=== PATIENT | female | born 1955 | race Caucasian/White ===

== ENCOUNTER 2016-07-28 12:35 | Emergency (ER) | payer OTHER ==
[2016-07-28 12:46] VITALS: BP 122/53; PULSE 99; TEMP 98.5; BMI 24.4
--- NOTE | 2016-07-28 13:31 | PDOC ---
History of Present Illness - General Chief Complaint: Back Pain Stated Complaint: BACK PAIN, NOT CHEST PAIN (PCP SENT) Time Seen by Provider: 07/28/16 13:09 History Source: Patient Exam Limitations: No Limitations - History of Present Illness Initial Comments: 07/28/16 13:26 Patient is here with thoracic spasm and pain. had 2 episodes of bronchitis and 1 hospital admission for influenza with chronic coughing and pleuritic chest pain. cough subsided after 2 weeks but has persistent thoracic pain and worsens with movement. 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 Denies fever, denies residual cough, denies any chest pain or palpitations, denies neck pain. Has used Tylenol with minimal resolved. ALLERGY to aspirin and ibuprofen 07/28/16 13 :30 Occurred: reports: last week Severity: reports: mild, moderate Pain Location: reports: back, chest Modifying Factors: improves with: None Past History - Travel Traveled outside of the country in the last 30 days: No Close contact w/someone who was outside of country & ill: No - Past Medical History Allergies/Adverse Reactions: Allergies Allergy/AdvReac Type Severity Reaction Status Date / Time aspirin Allergy Difficulty Verified 07/28/16 12:46 Breathing ibuprofen Allergy Verified 07/28/16 13:31 Sulfa (Sulfonamide Allergy Difficulty Verified 07/28/16 13:05 Antibiotics) Breathing Home Medications: Ambulatory Orders Salmeterol/Fluticasone [Advair 500Mcg/50Mcg -] 1 inh PO BID 06/24/16 Montelukast Na [Singulair -] 10 mg PO HS tablet 06/26/16 Cyclobenzaprine HCl 7.5 mg PO Q8H PRN #14 tablet 07/28/16 Asthma: Yes - Psycho/Social/Smoking Cessation Hx Anxiety: No Suicidal Ideation: No Smoking History: Never smoked Have you smoked in the past 12 months: No Hx Alcohol Use: No Drug/Substance Use Hx: No Substance Use Type: None Review of Systems - Review of Systems Able to Perform ROS?: Yes Is the patient limited Peruvian proficient: Yes Constitutional: Yes: Symptoms Reported, See HPI, Malaise. No: Chills, Fever, Loss of Appetite HEENTM: Yes: See HPI. No: Symptoms Reported Respiratory: Yes: See HPI. No: Symptoms reported, Cough (resolved 2 weeks ago) Musculoskeletal: Yes: Symptoms Reported, See HPI, Muscle Pain, Muscle Weakness Integumentary: Yes: Symptoms Reported Neurological: Yes: See HPI. No: Symptoms reported All Other Systems: Reviewed and Negative *Physical Exam - Vital Signs Last Vital Signs Temp Pulse Resp BP Pulse Ox 98.5 F 99 H 20 122/53 94 L 07/28/16 12:44 07/28/16 12:44 07/28/16 12:44 07/28/16 12:44 07/28/16 12:44 - Physical Exam General Appearance: Yes: Nourished, Appropriately Dressed, Apparent Distress, Mild Distress HEENT: positive: ADIA, Normal ENT Inspection, Normal Voice, TMs Normal, Pharynx Normal Neck: positive: Tender, Supple Respiratory/Chest: positive: Lungs Clear, Normal Breath Sounds (mild pleuritic pain) Gastrointestinal/Abdominal: positive: Soft. negative: Tender Musculoskeletal: positive: Normal Inspection, Muscle Spasm (tension and spasm noted to the paravertebral spinous muscles worse at lower trapezius and upper lumbar/rhomboid muscles. Has no true spine tenderness, range of motion is intact but really exacerbates pain on the right side with flexion at waist). 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 Will treat with Tylenol and cyclobenzaprine. Patient has appointment with PMD on Thursday for follow-up and possible further treatment *DC/Admit/Observation/Transfer Diagnosis at time of Disposition: Pleuritic chest pain, Muscle spasm - Discharge Dispostion Disposition: HOME Condition at time of disposition: Stable Admit: No - Patient Instructions Printed Discharge Instructions: DI for Atypical Chest Pain Additional Instructions: Rest, no heavy lifting or exercise until pain is resolved Hot soaks to neck and low back as often as possible/hot showers or Jacuzzis No massage or therapy until spasm is gone Continue Tylenol 2-3 25 mg tablets every 4-6 hours -for the next 3 days then as needed for pain and swelling Cyclobenzaprine 1-10mg every 8 hours as needed for spasm If not significant improvement within 24 hours with medication and rest regime, followup with private physician for change in medications and /or therapy. - Post Discharge Activity Work/School Note: Back to Work
== END 2016-07-28 13:38 | disposition home or self-care (01) ==
LOC: JERFT 12:35
DX: R07.81 Pleurodynia (principal); R07.89 Other chest pain; M62.838 Other muscle spasm; J45.909 Unspecified asthma, uncomplicated
CPT/HCPCS: 99281-25

== ENCOUNTER 2016-09-04 00:04 | Emergency (ER) | payer OTHER ==
[2016-09-04 00:25] VITALS: BP 142/94; PULSE 79; TEMP 97.5; BMI 24.4
[2016-09-04] MEDS ORDERED: SODIUM CHLORIDE 1,000 ML IV STA (01:05)
[2016-09-04] MEDS ORDERED: ONDANSETRON 4 MG/2 ML VIAL IVPB ONE (01:05)
[2016-09-04] MEDS ORDERED: morphine CARPU-JECT 4 MG/1 ML DISP.SYRIN IVPUSH ONE ×2 (01:05→01:48)
[2016-09-04] MEDS ORDERED: morphine CARPU-JECT 4 MG/1 ML DISP.SYRIN ONE ×2 (01:14→02:08)
[2016-09-04] MEDS ORDERED: ONDANSETRON 4 MG/2 ML VIAL ONE (01:14)
--- NOTE | 2016-09-04 01:19 | PDOC ---
History of Present Illness - General Chief Complaint: Pain, Acute Stated Complaint: ABD PAIN Time Seen by Provider: 09/04/16 00:30 History Source: Patient, Family (Daughter) Exam Limitations: No Limitations - History of Present Illness Travel History: No Initial Comments: 09/04/16 01:15 60yo Female patient w/ PmHx: Asthma presents to ED c/o 3 week history of abd pain radiating to her back with vomiting. Patient states she was seen and evaluated at [facility] 4 days ago and diagnosed with stomach ulcer and prescribed Sucralfate 1 GM and Ranitidine 150mg. Patient states she is using medications in excess but they are not helping her symptoms. Patient reports last meal 6pm and last BM: today x 4 and soft. Denies any other complaints at this time. Timing/Duration: reports: constant, getting worse Quality: reports: severe Abdominal Pain Onset Location: reports: epigastric Pain Radiation: reports: back Activities at Onset: reports: rest, no specific activity, eating Treatment Prior to Arrive: improves with: antacids Aggravating Factors: worse with: None, Defecation, Eating, Emotional upset, Exertion, [place], Movement, Voiding, Change in position Alleviating Factors: worse with: None, Belching, Shallow Breathing, Defecation, Eating, Holding Breath, Passing Gas, Change in Position, Rest, Voiding, Vomiting Past History - Travel Traveled outside of the country in the last 30 days: No Close contact w/someone who was outside of country & ill: No - Past Medical History Allergies/Adverse Reactions: Allergies Allergy/AdvReac Type Severity Reaction Status Date / Time aspirin Allergy Difficulty Verified 09/04/16 00:17 Breathing ibuprofen Allergy Verified 09/04/16 00:17 Sulfa (Sulfonamide Allergy Difficulty Verified 09/04/16 00:17 Antibiotics) Breathing Home Medications: Ambulatory Orders Salmeterol/Fluticasone [Advair 500Mcg/50Mcg -] 1 inh PO BID 06/24/16 Montelukast Na [Singulair -] 10 mg PO HS tablet 06/26/16 Cyclobenzaprine HCl 7.5 mg PO Q8H PRN #14 tablet 07/28/16 Famotidine [Pepcid -] 40 mg PO BID #14 tablet 09/04/16 Ondansetron [Zofran Odt -] 4 mg SL Q6H PRN #30 od.tablet 09/04/16 Pantoprazole Sodium [Protonix -] 40 mg PO DAILY #30 tablet.ec 09/04/16 Ranitidine [Zantac -] 150 mg PO DAILY 09/04/16 Asthma: Yes - Psycho/Social/Smoking Cessation Hx Anxiety: No Suicidal Ideation: No Smoking History: Never smoked Have you smoked in the past 12 months: No Hx Alcohol Use: No Drug/Substance Use Hx: No Substance Use Type: None Abd/GI Specific PMHX - Complaint Specific PMHX Colitis: No Diverticulitis: No Gall Bladder Disease: No GERD: No Hepatitis: No Irritable Bowel Synd (IBS): No Pancreatitis: No GI Ulcer Disease: No Review of Systems - Review of Systems Able to Perform ROS?: Yes Is the patient limited Austrian proficient: No Constitutional: No: Chills, Fever Respiratory: No: Cough, Shortness of Breath, SOB at Rest, Stridor, Wheezing Cardiac (ROS): No: Chest Pain, Palpitations, Syncope, Chest Tightness ABD/GI: Yes: Nausea, Vomiting. No: Constipated, Diarrhea, Poor Appetite, Poor Fluid Intake, Other (Abdominal Pain) : No: Dysuria, Frequency, Hematuria, Urgency Musculoskeletal: Yes: Back Pain All Other Systems: Reviewed and Negative *Physical Exam - Vital Signs Last Vital Signs Temp Pulse Resp BP Pulse Ox 97.5 F L 79 18 142/94 98 09/04/16 00:18 09/04/16 00:18 09/04/16 00:18 09/04/16 00:18 09/04/16 00:18 - Physical Exam General Appearance: Yes: Nourished, Appropriately Dressed, Apparent Distress, Severe Distress. No: Mild Distress, Moderate Distress HEENT: positive: EOMI, ADIA, Normal ENT Inspection, Normal Voice, Symmetrical, TMs Normal, Pharynx Normal. negative: Scleral Icterus (R), Scleral Icterus (L) Neck: positive: Trachea midline, Supple. negative: Stridor, Lymphadenopathy (R) , Lymphadenopathy (L) Respiratory/Chest: positive: Lungs Clear, Normal Breath Sounds. negative: Chest Tender, Respiratory Distress, Accessory Muscle Use, Labored Respiration, Rapid RR Cardiovascular: positive: Regular Rhythm, Regular Rate. negative: Edema, JVD, Murmur Gastrointestinal/Abdominal: positive: Soft, Increased Bowel Sounds, Guarding, Tenderness (Epigastic. Neg Villa sign). negative: Normal Bowel Sounds, Distended, Rebound Musculoskeletal: positive: Normal Inspection. negative: CVA Tenderness Extremity: positive: Normal Capillary Refill, Normal Inspection, Normal Range of Motion. 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, Fully Oriented, Alert, Normal Mood/ Affect, Normal Response, Motor Strength 10/10 ED Treatment Course - LABORATORY CBC & Chemistry Diagram: 09/04/16 01:20 09/04/16 01:20 - RADIOLOGY Radiology Studies Ordered: Category Date Time Status GALLBLADDER US [US] Stat Ultrasound 09/04/16 01:04 Ordered *DC/Admit/Observation/Transfer Diagnosis at time of Disposition: Dyspepsia Nausea and vomiting Qualifiers: Vomiting type: bilious vomiting Qualified Code(s): R11.14 - Bilious vomiting - Discharge Dispostion Disposition: HOME Condition at time of disposition: Improved Admit: No - Prescriptions Prescriptions: Famotidine [Pepcid -] 40 mg PO BID #14 tablet Pantoprazole Sodium [Protonix -] 40 mg PO DAILY #30 tablet.ec Ondansetron [Zofran Odt -] 4 mg SL Q6H PRN #30 od.tablet PRN Reason: Nausea - Referrals Referrals: Shamar Zurita [Primary Care Provider] - Umer Cadena MD [Staff Physician] - - Patient Instructions Printed Discharge Instructions: DI for Dyspepsia Additional Instructions: FOLLOW UP WITH DR. CADENA (GASTROENTEROLOGY) REGARDING TODAYS VISIT. TAKE MEDICATIONS PRESCRIBED. DRINK PLENTY FLUIDS. RETURN IF SYMPTOMS WORSEN OR ANY CONCERNS FOR FURTHER EVALUATION. Print Language: DIVEHI
[2016-09-04 01:32] LABS: BASOPHIL 0.7 % (0-2.0); EOSINOPHIL 8.1 % (0-4.5); MCH 31.3 pg (25.7-33.7); MCHC 34.4 g/dl (32.0-36.0); MEAN CELL VOLUME 90.9 fl (80-96); MEAN PLT VOLUME 9.1 fl (7.5-11.1); NEUTROPHILS 41.1 % (42.8-82.8); PLATELET COUNT 293 K/MM3 (134-434); RDW 14.2 % (11.6-15.6); WHITE BLOOD COUNT 7.8 K/mm3 (4.0-10.0)
[2016-09-04 02:05] LABS: ALBUMIN 3.5 g/dl (3.4-5.0); AMYLASE 59 U/L (25-115); ANION GAP 13 (8-16); BILIRUBIN,TOTAL 0.3 mg/dL (0.2-1.0); CALCIUM 8.8 mg/dL (8.5-10.1); CO2 27 mmol/L (21-32); CREATININE 0.6 mg/dL (0.55-1.02); GLUCOSE,RANDOM 96 mg/dL (74-106); SGOT/AST 21 U/L (15-37); SGPT/ALT 17 U/L (12-78); TOT PROT 7.2 g/dl (6.4-8.2)
[2016-09-04 02:08] LABS: ALK PHOS 104 U/L (45-117); TROPONIN I < 0.02 ng/ml (0.00-0.05)
[2016-09-04 02:11] LABS: BILIRUBIN,DIRECT < 0.1 mg/dL (0.0-0.2)
[2016-09-04 02:29] LABS: URINE APPEARANCE CLEAR; URINE BILIRUBIN NEGATIVE (NEGATIVE); URINE BLOOD NEGATIVE (NEGATIVE); URINE COLOR COLORLESS; URINE GLUCOSE (UA) NEGATIVE (NEGATIVE); URINE KETONE NEGATIVE (NEGATIVE); URINE LEUK ESTERASE NEGATIVE (NEGATIVE); URINE NITRITE NEGATIVE (NEGATIVE); URINE PROTEIN NEGATIVE (NEGATIVE); URINE UROBILINOGEN NEGATIVE E.U./dl (0.2-1.0)
[2016-09-04] MEDS ORDERED: OXYCODONE/APAP 5/325MG COMBO TABLET PO ONE (03:18)
[2016-09-04] MEDS ORDERED: OXYCODONE/APAP 5/325MG COMBO TABLET ONE (03:21)
--- NOTE | 2016-09-04 12:20 | EKG ---
Test Reason : Blood Pressure : / mmHG Vent. Rate : 070 BPM Atrial Rate : 070 BPM P-R Int : 154 ms QRS Dur : 092 ms QT Int : 388 ms P-R-T Axes : 062 009 035 degrees QTc Int : 419 ms NORMAL SINUS RHYTHM CANNOT RULE OUT ANTERIOR INFARCT , AGE UNDETERMINED ABNORMAL ECG WHEN COMPARED WITH ECG OF 24-JUN-2016 11:17, ST NO LONGER DEPRESSED IN ANTERIOR LEADS T WAVE INVERSION NOW EVIDENT IN ANTERIOR LEADS Confirmed by YOHAN VALENTIN MD ([id number]) on 09/04/2016 12:20:43 PM Referred By: Confirmed By:YOHAN VALENTIN MD
== END 2016-09-04 03:22 | disposition home or self-care (01) ==
LOC: JER 00:04
PROC: 3E033NZ Introduction of Analgesics, Hypnotics, Sedatives into Peripheral Vein, Percutaneous Approach (ICD-10-PCS; principal; 2016-09-04)
PROC: 3E033GC Introduction of Other Therapeutic Substance into Peripheral Vein, Percutaneous Approach (ICD-10-PCS; 2016-09-04)
DX: R10.13 Epigastric pain (principal); R11.14 Bilious vomiting; J45.909 Unspecified asthma, uncomplicated
CPT/HCPCS: 36415; 76705-TC; 80048; 80076; 81003; 82150; 82550; 83690; 84484; 85025; 93005; 93010; 99282-25

== ENCOUNTER 2016-09-05 01:00 | Observation (INO) | payer OTHER ==
--- NOTE | 2016-09-05 01:37 | PDOC ---
History of Present Illness - General History Source: Patient Exam Limitations: No Limitations - History of Present Illness Initial Comments: 09/05/16 02:11 The patient is a 60 year old female with significant past medical history of asthma who presents to the ED persistent abdominal pain radiating to the back with vomiting. Patient states she was seen and evaluated at [facility] 5 days ago, where she was diagnosed with stomach ulcer and prescribed Sucralfate 1 GM and Ranitidine 150mg. Patient was seen here yesterday for similar complaint, where she had an extensive workup including a gallbladder ultrasound that revealed no peptic ulcers or any other acute pathology. She was seen again in [facility] again earlier today for similar complaints. She returns today for persistent pain. Denies diarrhea. The patient denies fever, chills, cough, SOB, chest pain, and palpitations. Allergies: aspirin, ibuprofen, sulfa Social History: No alcohol, tobacco, or drug use reported. Past Surgical History: None reported PCP: Dr. Shamar Zurita <Norma Ramos - Last Filed: 09/05/16 06:55> - General History Source: Patient <Robinson Cortez - Last Filed: 09/08/16 19:15> - General Chief Complaint: Pain Stated Complaint: ABD PAIN Time Seen by Provider: 09/05/16 01:34 Past History <Norma Ramos - Last Filed: 09/05/16 06:55> - Past Medical History Asthma: Yes - Immunization History Immunization Up to Date: No - Psycho/Social/Smoking Cessation Hx Anxiety: No Suicidal Ideation: No Smoking History: Never smoked Have you smoked in the past 12 months: No Information on smoking cessation initiated: No Hx Alcohol Use: No Drug/Substance Use Hx: No Substance Use Type: None <Robinson Cortez - Last Filed: 09/08/16 19:15> - Past Medical History Allergies/Adverse Reactions: Allergies Allergy/AdvReac Type Severity Reaction Status Date / Time aspirin Allergy Difficulty Verified 09/05/16 01:31 Breathing ibuprofen Allergy Verified 09/05/16 01:31 Sulfa (Sulfonamide Allergy Difficulty Verified 09/05/16 01:31 Antibiotics) Breathing Home Medications: Ambulatory Orders Salmeterol/Fluticasone [Advair 500Mcg/50Mcg -] 1 inh PO BID 06/24/16 Montelukast Na [Singulair -] 10 mg PO HS tablet 06/26/16 Cyclobenzaprine HCl 7.5 mg PO Q8H PRN #14 tablet 07/28/16 Famotidine [Pepcid -] 40 mg PO BID #14 tablet 09/04/16 Ondansetron [Zofran Odt -] 4 mg SL Q6H PRN #30 od.tablet 09/04/16 Oxycodone HCl/Acetaminophen [Endocet 7.5-325 mg Tablet] 1 each PO Q6H PRN #20 tablet MDD 4 tabs 09/04/16 Pantoprazole Sodium [Protonix -] 40 mg PO DAILY #30 tablet.ec 09/04/16 Review of Systems - Review of Systems Able to Perform ROS?: Yes Comments:: 09/05/16 02:11 CONSTITUTIONAL: Absent: fever, no chills, no fatigue EYES: Absent: visual changes ENT: Absent: ear pain, no sore throat CARDIOVASCULAR: Absent: chest pain, no palpitations RESPIRATORY: Absent: cough, no SOB GI: +abdominal pain radiating to the back, vomiting Absent: no constipation, no diarrhea GENITOURINARY: Absent: dysuria, no frequency, no hematuria MUSCULOSKELETAL: Absent: no arthralgia, no myalgia SKIN: Absent: rash NEURO: Absent: headache <Norma Ramos - Last Filed: 09/05/16 06:55> *Physical Exam - Vital Signs Last Vital Signs Temp Pulse Resp BP Pulse Ox 98.7 F 75 18 106/51 100 09/05/16 01:28 09/05/16 01:28 09/05/16 01:28 09/05/16 01:28 09/05/16 01:28 - Physical Exam Comments: 09/05/16 02:11 GENERAL: Well-appearing, well-nourished. No apparent distress. HEENT: Normocephalic, atraumatic. PERRL, EOM intact. CARDIOVASCULAR: Normal S1, S2. Regular rate and rhythm. PULMONARY: Clear to auscultation bilaterally. ABDOMEN: Soft, non-distended, diffuse abdominal tenderness. Negative rebound or guarding. EXTREMITIES: Normal ROM in all four extremities. No gross deformities. SKIN: Warm, dry. No rash NEUROLOGICAL: No focal neurological deficits. <Norma Ramos - Last Filed: 09/05/16 06:55> - Vital Signs Last Vital Signs Temp Pulse Resp BP Pulse Ox 98.7 F 75 18 106/51 100 09/05/16 01:28 09/05/16 01:28 09/05/16 01:28 09/05/16 01:28 09/05/16 01:28 <Robinson Cortez - Last Filed: 09/08/16 19:15> Heart Score/ECG Review - ECG Impressions Comment:: 09/05/16 06:55 NSR @61bpm Nonspecific T wave abnormality Abnormal ECG <Norma Ramos - Last Filed: 09/05/16 06:55> ED Treatment Course - LABORATORY CBC & Chemistry Diagram: 09/05/16 02:06 09/05/16 02:06 - Medications Given in the ED: ED Medications Discontinued Medications Generic Name Dose Route Start Last Admin Trade Name Freq PRN Reason Stop Dose Admin Morphine Sulfate 4 mg 09/05/16 01:51 09/05/16 02:04 Morphine Injection - IVPUSH 09/05/16 01:52 4 mg ONCE ONE Administration Ondansetron HCl 4 mg 09/05/16 01:51 09/05/16 02:05 Zofran Injection IVPUSH 09/05/16 01:52 4 mg ONCE STA Administration <Norma Ramos - Last Filed: 09/05/16 06:55> - LABORATORY CBC & Chemistry Diagram: 09/06/16 06:30 09/06/16 06:30 <Robinson Cortez - Last Filed: 09/08/16 19:15> Medical Decision Making - Medical Decision Making 09/05/16 05:46- Dr. Gutiérrez paged via phone answering service. Notified Dr. Garcia is occupational rehabilitation aide and will be returning the call. <Norma Ramos - Last Filed: 09/05/16 06:55> - Medical Decision Making 09/08/16 19:15 Dr. Cortez: The scribe's documentation has been prepared under my direction and personally reviewed by me in its entirery. I confirm that the note above accurately reflects all work, treatment, procedures, and medical decision making performed by me. <Robinson Cortez - Last Filed: 09/08/16 19:15> *DC/Admit/Observation/Transfer - Attestations Scribe Attestion: 09/05/16 02:11 Documentation prepared by Norma Ramos, acting as emergency medical dispatcher for Robinson Cortez MD <Norma Ramos - Last Filed: 09/05/16 06:55> - Discharge Dispostion Admit: Yes <Robinson Cortez - Last Filed: 09/08/16 19:15> Diagnosis at time of Disposition: Nausea & vomiting - Discharge Dispostion Disposition: HOME Condition at time of disposition: Fair - Referrals
[2016-09-05] MEDS ORDERED: morphine CARPU-JECT 2 MG/1 ML DISP.SYRIN IVPUSH ONE (01:51)
[2016-09-05] MEDS ORDERED: SODIUM CHLORIDE 1,000 ML IV STA (01:51)
[2016-09-05] MEDS ORDERED: ONDANSETRON 4 MG/2 ML VIAL IVPUSH STA (01:51)
[2016-09-05] MEDS ORDERED: ONDANSETRON 4 MG/2 ML VIAL ONE (01:57)
[2016-09-05] MEDS ORDERED: morphine CARPU-JECT 4 MG/1 ML DISP.SYRIN ONE (01:57)
[2016-09-05 02:14] LABS: BASOPHIL 1.1 % (0-2.0); EOSINOPHIL 5.9 % (0-4.5); MCHC 33.8 g/dl (32.0-36.0); MEAN CELL VOLUME 91.8 fl (80-96); MEAN PLT VOLUME 8.8 fl (7.5-11.1); NEUTROPHILS 54.6 % (42.8-82.8); PLATELET COUNT 302 K/MM3 (134-434); WHITE BLOOD COUNT 8.9 K/mm3 (4.0-10.0)
[2016-09-05 02:45] LABS: ALBUMIN 3.6 g/dl (3.4-5.0); ALK PHOS 107 U/L (45-117); AMYLASE 68 U/L (25-115); ANION GAP 10 (8-16); BILIRUBIN,TOTAL 0.3 mg/dL (0.2-1.0); CALCIUM 8.9 mg/dL (8.5-10.1); CO2 25 mmol/L (21-32); CREATININE 0.7 mg/dL (0.55-1.02); GLUCOSE,RANDOM 91 mg/dL (74-106); MAGNESIUM 2.3 mg/dL (1.8-2.4); SGOT/AST 29 U/L (15-37); SGPT/ALT 16 U/L (12-78); TOT PROT 7.5 g/dl (6.4-8.2)
[2016-09-05] MEDS ORDERED: HYDROmorphone HCL CARPU-JECT 1 MG/1 ML DISP.SYRIN IVPUSH ONE (02:49)
[2016-09-05] MEDS ORDERED: HYDROmorphone HCL CARPU-JECT 1 MG/1 ML DISP.SYRIN ONE (02:51)
[2016-09-05] MEDS ORDERED: SUCRALFATE 1 GM TABLET (FP) PO STA (02:54)
[2016-09-05] MEDS ORDERED: SUCRALFATE 1 GM TABLET (FP) ONE (03:13)
[2016-09-05] MEDS ORDERED: DOCUSATE SODIUM 100 MG CAPSULE (FP) PO PRN (06:45)
[2016-09-05] MEDS ORDERED: ONDANSETRON 4 MG/2 ML VIAL IVPB PRN (06:45)
[2016-09-05] MEDS ORDERED: ALBUTEROL SO4 0.083% IH SOL 2.5 MG/3 ML VIAL.NEB. NEB PRN (06:46)
--- NOTE | 2016-09-05 09:45 | HP ---
Admitting History and Physical - Primary Care Physician PCP: Koby Gutiérrez - Admission Chief Complaint: ABD PAIN History of Present Illness: The patient is a 60 year old female with significant past medical history of asthma who presents to the ED persistent abdominal pain radiating to the back with vomiting. Patient states she was seen and evaluated at [facility] 5 days ago, where she was diagnosed with stomach ulcer and prescribed Sucralfate 1 GM and Ranitidine 150mg. Patient was seen here yesterday for similar complaint, where she had an extensive workup including a gallbladder ultrasound that revealed no peptic ulcers or any other acute pathology. She was seen again in [facility] again earlier today for similar complaints. She returns today for persistent pain. Denies diarrhea. The patient denies fever, chills, cough, SOB, chest pain, and palpitations. History Source: Patient Limitations to Obtaining History: No Limitations - Past Medical History Pulmonary: Yes: Asthma - Smoking History Smoking history: Never smoked Have you smoked in the past 12 months: No - Alcohol/Substance Use Hx Alcohol Use: No Home Medications - Allergies Allergies/Adverse Reactions: Allergies Allergy/AdvReac Type Severity Reaction Status Date / Time aspirin Allergy Difficulty Verified 09/05/16 01:31 Breathing ibuprofen Allergy Verified 09/05/16 01:31 Sulfa (Sulfonamide Allergy Difficulty Verified 09/05/16 01:31 Antibiotics) Breathing - Home Medications Home Medications: Ambulatory Orders Salmeterol/Fluticasone [Advair 500Mcg/50Mcg -] 1 inh PO BID 06/24/16 Montelukast Na [Singulair -] 10 mg PO HS tablet 06/26/16 Cyclobenzaprine HCl 7.5 mg PO Q8H PRN #14 tablet 07/28/16 Famotidine [Pepcid -] 40 mg PO BID #14 tablet 09/04/16 Ondansetron [Zofran Odt -] 4 mg SL Q6H PRN #30 od.tablet 09/04/16 Oxycodone HCl/Acetaminophen [Endocet 7.5-325 mg Tablet] 1 each PO Q6H PRN #20 tablet MDD 4 tabs 09/04/16 Pantoprazole Sodium [Protonix -] 40 mg PO DAILY #30 tablet.ec 09/04/16 Ranitidine [Zantac -] 150 mg PO DAILY 09/04/16 Review of Systems - Review of Systems Constitutional: reports: Loss of Appetite Eyes: reports: No Symptoms HENT: reports: No Symptoms Neck: reports: No Symptoms Cardiovascular: reports: No Symptoms Respiratory: reports: No Symptoms Gastrointestinal: reports: Abdominal Pain, Nausea Genitourinary: reports: No Symptoms Musculoskeletal: reports: No Symptoms Integumentary: reports: No Symptoms Neurological: reports: No Symptoms Endocrine: reports: No Symptoms Hematology/Lymphatic: reports: No Symptoms Psychiatric: reports: No Symptoms Physical Examination Vital Signs: Vital Signs Temperature 97.8 F 09/05/16 08:16 Pulse Rate 80 09/05/16 08:16 Respiratory Rate 18 09/05/16 08:16 Blood Pressure 115/59 09/05/16 08:16 O2 Sat by Pulse Oximetry (%) 98 09/05/16 06:48 Constitutional: Yes: Mild Distress Eyes: Yes: WNL HENT: Yes: WNL Neck: Yes: WNL Cardiovascular: Yes: WNL Respiratory: Yes: WNL Gastrointestinal: Yes: Tenderness Renal/: Yes: WNL Musculoskeletal: Yes: WNL Extremities: Yes: WNL Edema: No Peripheral Pulses WNL: Yes Integumentary: Yes: WNL Wound/Incision: Yes: Clean/Dry Neurological: Yes: WNL ...Motor Strength: WNL Psychiatric: Yes: WNL Imaging - Results Cat Scan: Report Reviewed Problem List - Problems (1) Nausea & vomiting Code(s): R11.2 - NAUSEA WITH VOMITING, UNSPECIFIED (2) Dyspepsia Code(s): R10.13 - EPIGASTRIC PAIN (3) Abdominal pain in female Code(s): R10.9 - UNSPECIFIED ABDOMINAL PAIN Assessment/Plan CT SCAN REVIEWED NPO IVF ANTIEMITICS GI EVAL
--- NOTE | 2016-09-05 10:44 | CONSULT ---
[id number] Surgery) CONSULT REQUEST: We have been asked to surgically evaluate this patient for abd pain. PCP: Koby Gutiérrez History Source: Patient Limitations to Obtaining History: No Limitations C/C: ABD PAIN HPI: Called to cha 60 yo female with PMHx noted below. Presents to [facility] ED with abd pain radiating to the back with n/v x1. States shes had this pain intermittently for the past 3 weeks. Was recently seen at [facility] ER with same complaint 5 days ago. They diagnosed her with gastric ulcer and prescribed her Sulcrafate and Ranitidine. She also had an extensive workup including a gallbladder ultrasound that revealed no peptic ulcers or any other acute pathology. Passing flatus. Her last bowel movement (semi-solid) was yesterday. Since admit to hospital, patient states she is feeling better. Pain initially 8/ 10. Now, 4. Denies diarrhea, fever or chills. Denies hematemisis, cough, CP, SOB or trauma. CT scan in the ER which identified a 2.2 cm left paraumbilical fat-containing hernia with mild inflammatory changes. Rest of study unremarkable. PMHx: Asthma PSHx: Allergies: ASA --> difficulty breathing Ibuprofen --> unknown Sulfa --> difficulty breathing HOME MEDS: Salmeterol/Fluticasone [Advair 500Mcg/50Mcg -] 1 inh PO BID 06/24/16 Montelukast Na [Singulair -] 10 mg PO HS tablet 06/26/16 Cyclobenzaprine HCl 7.5 mg PO Q8H PRN #14 tablet 07/28/16 Famotidine [Pepcid -] 40 mg PO BID #14 tablet 09/04/16 Ondansetron [Zofran Odt -] 4 mg SL Q6H PRN #30 od.tablet 09/04/16 Oxycodone HCl/Acetaminophen [Endocet 7.5-325 mg Tablet] 1 each PO Q6H PRN #20 tablet MDD 4 tabs 09/04/16 Pantoprazole Sodium [Protonix -] 40 mg PO DAILY #30 tablet.ec 09/04/16 Ranitidine [Zantac -] 150 mg PO DAILY 09/04/16 ROS: CONSTITUTIONAL: Absent: fever, chills, diaphoresis, generalized weakness, malaise, loss of appetite, weight change CARDIOVASCULAR: Absent: syncope, palpitations, irregular heart rate, lightheadedness, peripheral edema RESPIRATORY: Absent: dyspnea with exertion, wheezing, stridor, hemoptysis GASTROINTESTINAL:Absent: See above. GENITOURINARY: Absent: dysuria, frequency, urgency, hesitancy, flank pain MUSCULOSKELETAL: Absent: myalgia, arthralgia, joint swelling, back pain, neck pain SKIN: Absent: rash, itching, pallor HEMATOLOGIC/IMMUNOLOGIC: Absent: easy bleeding, easy bruising, lymphadenopathy NEUROLOGIC: Absent: headache, focal weakness, paresthesias, dizziness, unsteady gait, seizure, mental status changes, PSYCHIATRIC: Absent: anxiety, depression, suicidal or homicidal ideation, hallucinations. PE: GENERAL: Awake, alert, and fully oriented, in no acute distress. HEAD: Normal with no signs of trauma. EYES: PERRL, sclera anicteric, conjunctiva clear. NECK: Normal ROM, supple without lymphadenopathy, JVD, or masses. PULM: CTA b/l anteriorly COR: RRR ABD: Soft, mild epigastric tenderness. not distended. Reducible left periumbilcal hernia. + bowel sounds. no guarding/rigidity UE: 2+ pulses, warm, well-perfused. No cyanosis. Cap refill <2 seconds. No peripheral edema. LE: 2+ pulses, warm, well-perfused. No calf tenderness. No peripheral edema. PSYCH: Cooperative. Good eye contact. Appropriate mood and affect. SKIN: Warm, dry, normal turgor, no rashes or lesions noted. Vital Signs Temperature 97.8 F 09/05/16 08:16 Pulse Rate 80 09/05/16 08:16 Respiratory Rate 18 09/05/16 08:16 Blood Pressure 115/59 09/05/16 08:16 O2 Sat by Pulse Oximetry (%) 98 09/05/16 06:48 Lab Results WBC 8.9 K/mm3 (4.0-10.0) 09/05/16 02:06 RBC 4.17 M/mm3 (3.60-5.2) 09/05/16 02:06 Hgb 12.9 GM/dL (10.7-15.3) 09/05/16 02:06 Hct 38.3 % (32.4-45.2) 09/05/16 02:06 MCV 91.8 fl (80-96) 09/05/16 02:06 MCHC 33.8 g/dl (32.0-36.0) 09/05/16 02:06 RDW 14.0 % (11.6-15.6) 09/05/16 02:06 Plt Count 302 K/MM3 (134-434) 09/05/16 02:06 Sodium 140 mmol/L (136-145) 09/05/16 02:06 Potassium 4.0 mmol/L (3.5-5.1) 09/05/16 02:06 Chloride 105 mmol/L (98-107) 09/05/16 02:06 Carbon Dioxide 25 mmol/L (21-32) 09/05/16 02:06 Anion Gap 10 (8-16) 09/05/16 02:06 BUN 8 mg/dL (7-18) D 09/05/16 02:06 Creatinine 0.7 mg/dL (0.55-1.02) 09/05/16 02:06 Random Glucose 91 mg/dL (74-106) 09/05/16 02:06 Calcium 8.9 mg/dL (8.5-10.1) 09/05/16 02:06 Problem List - Problems (1) Umbilical hernia Assessment/Plan: 60 yo female with recent diagnosis of gastric ulcer presents with abd pain to our ER. CT scan confirmed a left periumbilical hernia containing fat only. Cont conservative management Periumbilical hernia is reducible. Can repair as elective out-patient f/u with Dr. Guerrier to begin process of pre-op work-up No surgical intervention Above plan discussed with Dr. Guerrier and agrees Code(s): K42.9 - UMBILICAL HERNIA WITHOUT OBSTRUCTION OR GANGRENE Qualifiers: Obstruction and gangrene presence: without obstruction or gangrene Qualified Code(s): K42.9 - Umbilical hernia without obstruction or gangrene (2) Gastric ulcer Assessment/Plan: Medical management GI PPX Advance diet as tolerated Code(s): K25.9 - GASTRIC ULCER, UNSP ACUTE OR CHRONIC, W/O HEMOR OR PERF Visit type - Case Type Case Type: ED Admission - Emergency Emergency Visit: Yes ED Registration Date: 09/05/16 Care time: The patient presented to the Emergency Department on the above date and was hospitalized for further evaluation of their emergent condition. - New patient This patient is new to me today: Yes Date on this admission: 09/05/16 <Israel Guerrier - Last Filed: 09/05/16 18:01> - Consultation REQUESTING PROVIDER: CONSULT REQUEST: We have been asked to surgically evaluate this patient for ( specify). PCP:Koby Gutiérrez HISTORY OF PRESENT ILLNESS: PMHx: PSHx: Home Medications Medication Instructions Recorded Salmeterol/Fluticasone [Advair 1 inh PO BID 06/24/16 500Mcg/50Mcg -] Montelukast Na [Singulair -] 10 mg PO HS tablet 06/26/16 Cyclobenzaprine HCl 7.5 mg PO Q8H PRN #14 tablet 07/28/16 Famotidine [Pepcid -] 40 mg PO BID #14 tablet 09/04/16 Ondansetron [Zofran Odt -] 4 mg SL Q6H PRN #30 od.tablet 09/04/16 Oxycodone HCl/Acetaminophen 1 each PO Q6H PRN #20 tablet MDD 4 09/04/16 [Endocet 7.5-325 mg Tablet] tabs Pantoprazole Sodium [Protonix -] 40 mg PO DAILY #30 tablet.ec 09/04/16 Ranitidine [Zantac -] 150 mg PO DAILY 09/04/16 Allergies Allergy/AdvReac Type Severity Reaction Status Date / Time aspirin Allergy Difficulty Verified 09/05/16 01:31 Breathing ibuprofen Allergy Verified 09/05/16 01:31 Sulfa (Sulfonamide Allergy Difficulty Verified 09/05/16 01:31 Antibiotics) Breathing REVIEW OF SYSTEMS: CONSTITUTIONAL: Absent: fever, chills, diaphoresis, generalized weakness, malaise, loss of appetite, weight change CARDIOVASCULAR: Absent: chest pain, syncope, palpitations, irregular heart rate, lightheadedness , peripheral edema RESPIRATORY: Absent: cough, shortness of breath, dyspnea with exertion, wheezing, stridor, hemoptysis GASTROINTESTINAL: Absent: abdominal pain, abdominal distension, nausea, vomiting, diarrhea, constipation, melena, hematochezia GENITOURINARY: Absent: dysuria, frequency, urgency, hesitancy, hematuria, flank pain, genital pain MUSCULOSKELETAL: Absent: myalgia, arthralgia, joint swelling, back pain, neck pain SKIN: Absent: rash, itching, pallor HEMATOLOGIC/IMMUNOLOGIC: Absent: easy bleeding, easy bruising, lymphadenopathy NEUROLOGIC: Absent: headache, focal weakness, paresthesias, dizziness, unsteady gait, seizure, mental status changes, bladder or bowel incontinence PSYCHIATRIC: Absent: anxiety, depression, suicidal or homicidal ideation, hallucinations. PHYSICAL EXAM: GENERAL: Awake, alert, and fully oriented, in no acute distress. HEAD: Normal with no signs of trauma. EYES: PERRL, sclera anicteric, conjunctiva clear. NECK: Normal ROM, supple without lymphadenopathy, JVD, or masses. LUNGS: Clear to auscultation bilat anteriorly. No wheezes, and no crackles. No accessory muscle use. HEART: Regular rate and rhythm. No murmurs ABDOMEN: Soft, nontender, not distended, normoactive bowel sounds, no guarding, no rebound, no masses. No organomegaly. MUSCULOSKELETAL: Normal ROM at all joints. No bony deformities or tenderness. No CVA tenderness. UPPER EXTREMITIES: 2+ pulses, warm, well-perfused. No cyanosis. Cap refill <2 seconds. No peripheral edema. LOWER EXTREMITIES: 2+ pulses, warm, well-perfused. No calf tenderness. No peripheral edema. NEUROLOGICAL: Normal speech, gait not observed. PSYCH: Cooperative. Good eye contact. Appropriate mood and affect. SKIN: Warm, dry, normal turgor, no rashes or lesions noted. Vital Signs Temperature 97.8 F 09/05/16 13:49 Pulse Rate 62 09/05/16 13:49 Respiratory Rate 17 09/05/16 13:49 Blood Pressure 110/57 09/05/16 10:00 O2 Sat by Pulse Oximetry (%) 97 09/05/16 14:43 Lab Results WBC 8.9 K/mm3 (4.0-10.0) 09/05/16 02:06 RBC 4.17 M/mm3 (3.60-5.2) 09/05/16 02:06 Hgb 12.9 GM/dL (10.7-15.3) 09/05/16 02:06 Hct 38.3 % (32.4-45.2) 09/05/16 02:06 MCV 91.8 fl (80-96) 09/05/16 02:06 MCHC 33.8 g/dl (32.0-36.0) 09/05/16 02:06 RDW 14.0 % (11.6-15.6) 09/05/16 02:06 Plt Count 302 K/MM3 (134-434) 09/05/16 02:06 Sodium 140 mmol/L (136-145) 09/05/16 02:06 Potassium 4.0 mmol/L (3.5-5.1) 09/05/16 02:06 Chloride 105 mmol/L (98-107) 09/05/16 02:06 Carbon Dioxide 25 mmol/L (21-32) 09/05/16 02:06 Anion Gap 10 (8-16) 09/05/16 02:06 BUN 8 mg/dL (7-18) D 09/05/16 02:06 Creatinine 0.7 mg/dL (0.55-1.02) 09/05/16 02:06 Random Glucose 91 mg/dL (74-106) 09/05/16 02:06 Calcium 8.9 mg/dL (8.5-10.1) 09/05/16 02:06 Agree Reducible louis-umbilical hernia No signs of obstruction Abd NT, ND, benign, reducible hernia Labs WNL Soft diet Discharge home Follow up for elective repair
[2016-09-05] MEDS: PANTOPRAZOLE SODIUM 100 ML IVPB SCH (11:07)
--- NOTE | 2016-09-05 11:32 | EKG ---
Test Reason : Blood Pressure : / mmHG Vent. Rate : 061 BPM Atrial Rate : 061 BPM P-R Int : 154 ms QRS Dur : 090 ms QT Int : 422 ms P-R-T Axes : 050 001 015 degrees QTc Int : 424 ms NORMAL SINUS RHYTHM NONSPECIFIC T WAVE ABNORMALITY ABNORMAL ECG WHEN COMPARED WITH ECG OF 04-SEP-2016 02:00, NONSPECIFIC T WAVE ABNORMALITY HAS REPLACED INVERTED T WAVES IN ANTERIOR LEADS Confirmed by LISSA QUIJANO, VALERIE ([id number]) on 09/05/2016 11:32:13 AM Referred By: Confirmed By:VALERIE ALCARAZ MD
[2016-09-05] MEDS: morphine CARPU-JECT 2 MG/1 ML DISP.SYRIN IVPUSH PRN (12:46)
[2016-09-05] MEDS ORDERED: HYDROmorphone HCL CARPU-JECT 1 MG/1 ML DISP.SYRIN IVPB PRN (13:32)
[2016-09-05] MEDS: BUDESONIDE/FORMETEROL FUMARATE 160/4.5 mcg INHALER IH SCH ×2 (14:07→21:16)
[2016-09-05] MEDS ORDERED: PT OWN MED DRAWER 7, Y5N ONE ×2 (14:11→20:44)
[2016-09-05 16:14] VITALS: BMI 25.2
[2016-09-05] MEDS ORDERED: MONTELUKAST NA 10 MG TABLET PO SCH (22:00)
[2016-09-06] MEDS: morphine CARPU-JECT 2 MG/1 ML DISP.SYRIN IVPUSH PRN (01:13)
[2016-09-06 06:01] VITALS: PULSE 70
[2016-09-06] MEDS ORDERED: PT OWN MED DRAWER 7, Y5N ONE (06:53)
[2016-09-06 08:22] LABS: BASOPHIL 0.5 % (0-2.0); EOSINOPHIL 6.8 % (0-4.5); MCH 30.8 pg (25.7-33.7); MCHC 33.6 g/dl (32.0-36.0); MEAN CELL VOLUME 91.6 fl (80-96); MEAN PLT VOLUME 10.1 fl (7.5-11.1); NEUTROPHILS 47.5 % (42.8-82.8); PLATELET COUNT 257 K/MM3 (134-434); WHITE BLOOD COUNT 5.9 K/mm3 (4.0-10.0)
[2016-09-06 08:58] LABS: ALBUMIN 3.2 g/dl (3.4-5.0); ANION GAP 9 (8-16); BILIRUBIN,TOTAL 0.4 mg/dL (0.2-1.0); CALCIUM 8.8 mg/dL (8.5-10.1); CO2 29 mmol/L (21-32); CREATININE 0.7 mg/dL (0.55-1.02); GLUCOSE,RANDOM 73 mg/dL (74-106); SGOT/AST 23 U/L (15-37); TOT PROT 6.7 g/dl (6.4-8.2)
[2016-09-06 09:00] VITALS: BP 110/70; TEMP 97.5
[2016-09-06 09:23] LABS: ALK PHOS 96 U/L (45-117); SGPT/ALT 16 U/L (12-78)
[2016-09-06] MEDS: PANTOPRAZOLE SODIUM 100 ML IVPB SCH (10:05)
[2016-09-06] MEDS: BUDESONIDE/FORMETEROL FUMARATE 160/4.5 mcg INHALER IH SCH (10:05)
--- NOTE | 2016-09-06 10:53 | DS ---
Physical Examination Vital Signs: Vital Signs Temperature 97.5 F L 09/06/16 08:58 Pulse Rate 70 09/06/16 08:58 Respiratory Rate 18 09/06/16 08:58 Blood Pressure 110/70 09/06/16 08:58 O2 Sat by Pulse Oximetry (%) 97 09/06/16 08:58 Labs: CBC, BMP 09/06/16 06:30 09/06/16 06:30 Discharge Summary Reason For Visit: NAUSEA AND VOMITING Current Active Problems Abdominal pain in female (Acute) Gastric ulcer (Acute) Nausea & vomiting (Acute) Umbilical hernia (Acute) Hospital Course: The patient is a 60 year old female with significant past medical history of asthma who presents to the ED persistent abdominal pain radiating to the back with vomiting. Patient states she was seen and evaluated at [facility] 5 days ago, where she was diagnosed with stomach ulcer and prescribed Sucralfate 1 GM and Ranitidine 150mg. Patient was seen here yesterday for similar complaint, where she had an extensive workup including a gallbladder ultrasound that revealed no peptic ulcers or any other acute pathology. She was seen again in [facility] again earlier today for similar complaints. She returns today for persistent pain. Denies diarrhea. (1) Umbilical hernia Assessment/Plan: FINDINGS D/W PT AND SHE WILL F/U WITH HER PMD, GI AND SURGERY OUTPATIENT I STRESSED IMPORTANCE OF ENDOSCOPY AND SURGICAL F/U SURGERY 60 yo female with recent diagnosis of gastric ulcer presents with abd pain to our ER. CT scan confirmed a left periumbilical hernia containing fat only. Cont conservative management Periumbilical hernia is reducible. Can repair as elective out-patient f/u with Dr. Guerrier to begin process of pre-op work-up No surgical intervention Above plan discussed with Dr. Guerrier and agrees Code(s): K42.9 - UMBILICAL HERNIA WITHOUT OBSTRUCTION OR GANGRENE Qualifiers: Obstruction and gangrene presence: without obstruction or gangrene Qualified Code(s): K42.9 - Umbilical hernia without obstruction or gangrene (2) Gastric ulcer Assessment/Plan: Medical management GI PPX Advance diet as tolerated Code(s): K25.9 - GASTRIC ULCER, UNSP ACUTE OR CHRONIC, W/O HEMOR OR PERF Condition: Fair - Instructions Diet, Activity, Other Instructions: make appointment with Dr katy Guerrier for surgery for hernia Dr Cadena for endoscopy Referrals: Katy Guerrier MD [Staff Physician] - Shamar Zurita [Primary Care Provider] - 1 Week Umer Cadena MD [Staff Physician] - Disposition: HOME - Home Medications Comprehensive Discharge Medication List: Ambulatory Orders Salmeterol/Fluticasone [Advair 500Mcg/50Mcg -] 1 inh PO BID 06/24/16 Montelukast Na [Singulair -] 10 mg PO HS tablet 06/26/16 Cyclobenzaprine HCl 7.5 mg PO Q8H PRN #14 tablet 07/28/16 Famotidine [Pepcid -] 40 mg PO BID #14 tablet 09/04/16 Ondansetron [Zofran Odt -] 4 mg SL Q6H PRN #30 od.tablet 09/04/16 Oxycodone HCl/Acetaminophen [Endocet 7.5-325 mg Tablet] 1 each PO Q6H PRN #20 tablet MDD 4 tabs 09/04/16 Pantoprazole Sodium [Protonix -] 40 mg PO DAILY #30 tablet.ec 09/04/16
== END 2016-09-06 11:20 | disposition home or self-care (01) ==
LOC: JER 01:00 → JERBED 06:15 → UNDOADMOB 06:24 → J6S 08:23
PROVIDERS: ADMIT Family Medicine; ATTEND Family Medicine
PROC: 3E033GC Introduction of Other Therapeutic Substance into Peripheral Vein, Percutaneous Approach (ICD-10-PCS; principal; 2016-09-05)
PROC: 3E033NZ Introduction of Analgesics, Hypnotics, Sedatives into Peripheral Vein, Percutaneous Approach (ICD-10-PCS; 2016-09-05)
PROC: 3E0337Z Introduction of Electrolytic and Water Balance Substance into Peripheral Vein, Percutaneous Approach (ICD-10-PCS; 2016-09-05)
DX: K42.9 Umbilical hernia without obstruction or gangrene (principal); K25.9 Gastric ulcer, unspecified as acute or chronic, without hemorrhage or perforation; J45.909 Unspecified asthma, uncomplicated
CPT/HCPCS: 36415; 71010-TC; 74176-TC; 80053; 82150; 83690; 83735; 85025; 93005; 93010; 99285-25; G0378

== ENCOUNTER 2016-09-13 02:12 | Inpatient (IN) | payer OTHER ==
[2016-09-13] MEDS ORDERED: SODIUM CHLORIDE 1,000 ML IV STA (03:22)
[2016-09-13] MEDS ORDERED: morphine CARPU-JECT 4 MG/1 ML DISP.SYRIN IVPUSH ONE ×2 (03:22→10:35)
[2016-09-13] MEDS ORDERED: morphine CARPU-JECT 4 MG/1 ML DISP.SYRIN ONE (03:40)
--- NOTE | 2016-09-13 03:49 | PDOC ---
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 Patient states she was recently seen by Dr. Cadena and was told she has an abdominal hernia that may require surgery. Patient was scheduled to have endoscopy on Thursday, but was told by Dr. Cadena, if pain returns go to ER and have them call me per daughter. Patient denies n/v/d, back pain, diff breathing , fever, poor appetite, or any other complaints at this time. Timing/Duration: reports: constant, getting worse Quality: reports: severe Abdominal Pain Onset Location: reports: epigastric Pain Radiation: reports: no radiation Activities at Onset: reports: none, no specific activity Treatment Prior to Arrive: worse with: analgesics, antacids, cold pack, heat, laxative, enema, other Aggravating Factors: worse with: None, Defecation, Eating, Emotional upset, Exertion, [place], Movement, Voiding, Change in position Alleviating Factors: worse with: None, Belching, Shallow Breathing, Defecation, Eating, Holding Breath, Passing Gas, Change in Position, Rest, Voiding, Vomiting <Clarice Javier - Last Filed: 09/13/16 04:39> <Mirna Sapp - Last Filed: 09/13/16 07:58> - General Chief Complaint: Pain, Acute Stated Complaint: ABD PAIN Time Seen by Provider: 09/13/16 02:33 Past History - Travel Traveled outside of the country in the last 30 days: No Close contact w/someone who was outside of country & ill: No - Past Medical History Anemia: No Asthma: Yes Cancer: No Cardiac Disorders: No CVA: No COPD: No CHF: No Dementia: No Diabetes: No GI Disorders: No Disorders: No HTN: No Hypercholesterolemia: Yes Liver Disease: No Seizures: No Thyroid Disease: No - Surgical History Abdominal Surgery: No Appendectomy: No Cardiac Surgery: No Cholecystectomy: No Lung Surgery: No Neurologic Surgery: No Orthopedic Surgery: No - Immunization History Immunization Up to Date: No - Psycho/Social/Smoking Cessation Hx Anxiety: No Suicidal Ideation: No Smoking History: Never smoked Have you smoked in the past 12 months: No Information on smoking cessation initiated: No Hx Alcohol Use: No Drug/Substance Use Hx: No Substance Use Type: None Hx Substance Use Treatment: No <Clarice Javier - Last Filed: 09/13/16 04:39> <Mrina Sapp - Last Filed: 09/13/16 07:58> - Past Medical History Allergies/Adverse Reactions: Allergies Allergy/AdvReac Type Severity Reaction Status Date / Time aspirin Allergy Difficulty Verified 09/13/16 03:22 Breathing ibuprofen Allergy Verified 09/13/16 03:22 Sulfa (Sulfonamide Allergy Difficulty Verified 09/13/16 03:22 Antibiotics) Breathing Home Medications: Ambulatory Orders Salmeterol/Fluticasone [Advair 500Mcg/50Mcg -] 1 inh PO BID 06/24/16 Montelukast Na [Singulair -] 10 mg PO HS tablet 06/26/16 Cyclobenzaprine HCl 7.5 mg PO Q8H PRN #14 tablet 07/28/16 Famotidine [Pepcid -] 40 mg PO BID #14 tablet 09/04/16 Ondansetron [Zofran Odt -] 4 mg SL Q6H PRN #30 od.tablet 09/04/16 Oxycodone HCl/Acetaminophen [Endocet 7.5-325 mg Tablet] 1 each PO Q6H PRN #20 tablet MDD 4 tabs 09/04/16 Pantoprazole Sodium [Protonix -] 40 mg PO DAILY #30 tablet.ec 09/04/16 Abd/GI Specific PMHX - Complaint Specific PMHX Colitis: No Diverticulitis: No Gall Bladder Disease: No GERD: No Hepatitis: No Irritable Bowel Synd (IBS): No Pancreatitis: No GI Ulcer Disease: No <Clarice Javier - Last Filed: 09/13/16 04:39> Review of Systems - Review of Systems Able to Perform ROS?: Yes Is the patient limited French proficient: No Constitutional: No: Chills, Fever Cardiac (ROS): No: Chest Pain ABD/GI: Yes: Nausea, Poor Fluid Intake, Vomiting, Other (Abdominal Pain). No: Poor Appetite : No: Burning, Dysuria, Hematuria Musculoskeletal: No: Back Pain Integumentary: No: Bruising, Erythema, Rash, Sweating Neurological: No: Headache, Seizure, Tingling, Ataxia, Dizziness All Other Systems: Reviewed and Negative <Clarice Javier - Last Filed: 09/13/16 04:39> *Physical Exam - Vital Signs Last Vital Signs Temp Pulse Resp BP Pulse Ox 97.6 F 78 20 142/77 98 09/13/16 02:59 09/13/16 02:59 09/13/16 02:59 09/13/16 02:59 09/13/16 02:59 - Physical Exam General Appearance: Yes: Nourished, Appropriately Dressed, Apparent Distress, Severe Distress Neck: positive: Trachea midline, Supple. negative: Stridor, Lymphadenopathy (R) , Lymphadenopathy (L) Respiratory/Chest: positive: Lungs Clear, Normal Breath Sounds. negative: Respiratory Distress, Accessory Muscle Use, Labored Respiration, Rapid RR Cardiovascular: positive: Regular Rhythm, Regular Rate. negative: Edema, JVD, Murmur Gastrointestinal/Abdominal: positive: Normal Bowel Sounds, Tender, Soft, Tenderness (Epigastric region). negative: Distended, Guarding, Rebound Musculoskeletal: positive: Normal Inspection. negative: CVA Tenderness Extremity: positive: Normal Capillary Refill, Normal Inspection, Normal Range of Motion Integumentary: positive: Normal Color, Dry, Warm Neurologic: positive: manager utilization review II-XII NML intact, Fully Oriented, Alert, Normal Mood/ Affect, Normal Response, Motor Strength 5/5 <Clarice Javier - Last Filed: 09/13/16 04:39> - Vital Signs Last Vital Signs Temp Pulse Resp BP Pulse Ox 97.6 F 78 20 142/77 98 09/13/16 02:59 09/13/16 02:59 09/13/16 02:59 09/13/16 02:59 09/13/16 03:51 <Mirna Sapp - Last Filed: 09/13/16 07:58> ED Treatment Course - LABORATORY CBC & Chemistry Diagram: 09/13/16 03:25 09/13/16 02:43 <Clarice Javier - Last Filed: 09/13/16 04:39> - LABORATORY CBC & Chemistry Diagram: 09/13/16 03:25 09/13/16 02:43 - ADDITIONAL ORDERS Additional order review: Laboratory Results 09/13/16 09/13/16 03:25 02:43 Sodium 140 Potassium 4.1 Chloride 104 Carbon Dioxide 26 Anion Gap 10 BUN 17 D Creatinine 0.7 Creat Clearance w eGFR > 60 Random Glucose 95 D Calcium 9.3 Total Bilirubin 0.4 AST 25 ALT 17 Alkaline Phosphatase 111 Total Protein 7.4 Albumin 3.6 Urine Color Straw Urine Appearance Clear Urine pH 6.0 D Ur Specific [place] 1.017 Urine Protein Negative Urine Glucose (UA) Negative Urine Ketones Negative Urine Blood Negative Urine Nitrite Negative Urine Bilirubin Negative Urine Urobilinogen Negative Ur Leukocyte Esterase Negative 09/13/16 03:25 RBC 4.20 MCV 90.6 MCHC 34.1 RDW 14.2 MPV 10.1 Neutrophils % 42.0 L Lymphocytes % 35.5 Monocytes % 9.7 Eosinophils % 11.7 H Basophils % 1.1 - Medications Given in the ED: ED Medications Discontinued Medications Generic Name Dose Route Start Last Admin Trade Name Freq PRN Reason Stop Dose Admin Acetaminophen 1,000 mg 09/13/16 04:38 09/13/16 04:44 Ofirmev Injection - IVPB 09/13/16 04:39 1,000 mg ONCE ONE Administration Sodium Chloride 1,000 mls @ 1,000 mls/hr 09/13/16 03:22 09/13/16 03:43 Normal Saline - IV 09/13/16 04:21 1,000 mls/hr ASDIR STA Administration Morphine Sulfate 4 mg 09/13/16 03:22 09/13/16 03:42 Morphine Injection - IVPUSH 09/13/16 03:23 4 mg ONCE ONE Administration Morphine Sulfate 2 mg 09/13/16 05:17 09/13/16 05:46 Morphine Injection - IVPUSH 09/13/16 05:18 2 mg ONCE ONE Administration Ondansetron HCl 4 mg 09/13/16 05:17 09/13/16 05:46 Zofran Injection IVPB 09/13/16 05:18 4 mg ONCE ONE Administration - Consult/PCP Consult Reason/Comments: spoke with will see pt in the ER . <Mirna Sapp - Last Filed: 09/13/16 07:58> *DC/Admit/Observation/Transfer <Clarice Javier - Last Filed: 09/13/16 04:39> - Discharge Dispostion Admit: Yes <Mirna Sapp - Last Filed: 09/13/16 07:58> Diagnosis at time of Disposition: Abdominal pain in female - Discharge Dispostion Condition at time of disposition: Fair
[2016-09-13 04:03] LABS: BASOPHIL 1.1 % (0-2.0); EOSINOPHIL 11.7 % (0-4.5); MCH 30.9 pg (25.7-33.7); MCHC 34.1 g/dl (32.0-36.0); MEAN CELL VOLUME 90.6 fl (80-96); MEAN PLT VOLUME 10.1 fl (7.5-11.1); PLATELET COUNT 284 K/MM3 (134-434); RDW 14.2 % (11.6-15.6); WHITE BLOOD COUNT 7.2 K/mm3 (4.0-10.0)
[2016-09-13 04:05] LABS: URINE APPEARANCE CLEAR; URINE BILIRUBIN NEGATIVE (NEGATIVE); URINE BLOOD NEGATIVE (NEGATIVE); URINE COLOR STRAW; URINE GLUCOSE (UA) NEGATIVE (NEGATIVE); URINE KETONE NEGATIVE (NEGATIVE); URINE LEUK ESTERASE NEGATIVE (NEGATIVE); URINE NITRITE NEGATIVE (NEGATIVE); URINE PROTEIN NEGATIVE (NEGATIVE); URINE UROBILINOGEN NEGATIVE E.U./dl (0.2-1.0)
[2016-09-13 04:26] LABS: ALBUMIN 3.6 g/dl (3.4-5.0); ANION GAP 10 (8-16); BILIRUBIN,TOTAL 0.4 mg/dL (0.2-1.0); CALCIUM 9.3 mg/dL (8.5-10.1); CO2 26 mmol/L (21-32); COCKROFT - GAULT 76.4915; CREATININE 0.7 mg/dL (0.55-1.02); GLUCOSE,RANDOM 95 mg/dL (74-106); SGOT/AST 25 U/L (15-37); SGPT/ALT 17 U/L (12-78); TOT PROT 7.4 g/dl (6.4-8.2)
[2016-09-13 04:27] LABS: ALK PHOS 111 U/L (45-117)
[2016-09-13] MEDS ORDERED: ACETAMINOPHEN 1000 MG/100 ML VIAL (NON FORMULARY) IVPB ONE (04:38)
[2016-09-13] MEDS ORDERED: ACETAMINOPHEN INJECTION 100 ML IVPB ONE (04:43)
[2016-09-13] MEDS ORDERED: morphine CARPU-JECT 2 MG/1 ML DISP.SYRIN IVPUSH ONE ×2 (05:17→19:15)
[2016-09-13] MEDS ORDERED: ONDANSETRON 4 MG/2 ML VIAL IVPB ONE (05:17)
[2016-09-13] MEDS ORDERED: morphine CARPU-JECT 2 MG/1 ML DISP.SYRIN ONE (05:41)
[2016-09-13] MEDS ORDERED: ONDANSETRON 4 MG/2 ML VIAL ONE (05:41)
[2016-09-13 09:50] VITALS: BMI 24.6
[2016-09-13] MEDS ORDERED: morphine CARPU-JECT 2 MG/1 ML DISP.SYRIN IVPUSH PRN (10:04)
[2016-09-13] MEDS ORDERED: DOCUSATE SODIUM 100 MG CAPSULE (FP) PO PRN (10:05)
[2016-09-13] MEDS ORDERED: ACETAMINOPHEN 1000 MG/100 ML VIAL (NON FORMULARY) IVPB PRN (10:09)
[2016-09-13] MEDS ORDERED: ONDANSETRON 4 MG/2 ML VIAL IVPUSH PRN (10:09)
[2016-09-13] MEDS ORDERED: ALBUTEROL SO4 0.083% IH SOL 2.5 MG/3 ML VIAL.NEB. NEB PRN (10:11)
--- NOTE | 2016-09-13 10:13 | HP ---
Admitting History and Physical - Primary Care Physician PCP: Koby Gutiérrez - Admission Chief Complaint: abd pain. hernia History Source: Medical Record - Past Medical History Pulmonary: Yes: Asthma - Smoking History Smoking history: Never smoked Have you smoked in the past 12 months: No - Alcohol/Substance Use Hx Alcohol Use: No Home Medications - Allergies Allergies/Adverse Reactions: Allergies Allergy/AdvReac Type Severity Reaction Status Date / Time aspirin Allergy Difficulty Verified 09/13/16 03:22 Breathing ibuprofen Allergy Verified 09/13/16 03:22 Sulfa (Sulfonamide Allergy Difficulty Verified 09/13/16 03:22 Antibiotics) Breathing - Home Medications Home Medications: Ambulatory Orders Salmeterol/Fluticasone [Advair 500Mcg/50Mcg -] 1 inh PO BID 06/24/16 Montelukast Na [Singulair -] 10 mg PO HS tablet 06/26/16 Cyclobenzaprine HCl 7.5 mg PO Q8H PRN #14 tablet 07/28/16 Famotidine [Pepcid -] 40 mg PO BID #14 tablet 09/04/16 Ondansetron [Zofran Odt -] 4 mg SL Q6H PRN #30 od.tablet 09/04/16 Oxycodone HCl/Acetaminophen [Endocet 7.5-325 mg Tablet] 1 each PO Q6H PRN #20 tablet MDD 4 tabs 09/04/16 Pantoprazole Sodium [Protonix -] 40 mg PO DAILY #30 tablet.ec 09/04/16 Review of Systems - Review of Systems Constitutional: denies: Chills, Fever Cardiovascular: denies: Chest Pain Respiratory: denies: SOB Gastrointestinal: denies: Abdominal Pain Physical Examination Vital Signs: Vital Signs Temperature 98.4 F 09/13/16 09:45 Pulse Rate 76 09/13/16 09:45 Respiratory Rate 18 09/13/16 09:45 Blood Pressure 126/74 09/13/16 09:45 O2 Sat by Pulse Oximetry (%) 94 L 09/13/16 09:30 Findings/Remarks: HUNGRY Constitutional: Yes: Calm Neck: Yes: WNL Cardiovascular: Yes: WNL Respiratory: Yes: WNL Gastrointestinal: Yes: WNL Edema: No Problem List - Problems (1) Abdominal pain in female Code(s): R10.9 - UNSPECIFIED ABDOMINAL PAIN (2) Asthma Code(s): J45.909 - UNSPECIFIED ASTHMA, UNCOMPLICATED (3) Hernia Code(s): K46.9 - UNSPECIFIED ABDOMINAL HERNIA WITHOUT OBSTRUCTION OR GANGRENE Assessment/Plan 60yo Female patient with multiple ED visits for abd pain presents c/o abd pain. Patient states she was recently seen by Dr. Cadena and was told she has an abdominal hernia that may require surgery. Patient was scheduled to have endoscopy on Thursday, but was told by Dr. Cadena, if pain returns go to ER and have them call me per daughter. Patient denies n/v/d, back pain, diff breathing , fever, poor appetite, or any other complaints at this time. (1) Abdominal pain in female Code(s): R10.9 - UNSPECIFIED ABDOMINAL PAIN gi consulted appreciate surg consult -> no obstruction. For laparoscopic possible open ventral hernia repair with mesh on 09/15/16 f/u ctap - clear liquid diet (2) Asthma Code(s): J45.909 - UNSPECIFIED ASTHMA, UNCOMPLICATED alb neb prn (3) Hernia Code(s): K46.9 - UNSPECIFIED ABDOMINAL HERNIA WITHOUT OBSTRUCTION OR GANGRENE [employer] FM
--- NOTE | 2016-09-13 11:39 | CONSULT ---
Consult Consult Specialty:: Surgery Reason for Consultation:: Abdominal pain - History of Present Illness History of Present Illness: 60 female presents for abdominal pain Was scheduled for elective periumbilical hernia repair with mesh However, developed recurrent pain No fevers/chills - History Source History Provided By: Patient, Medical Record Limitations to Obtaining History: No Limitations - Past Medical History Pulmonary: Yes: Asthma - Alcohol/Substance Use Hx Alcohol Use: No - Smoking History Smoking history: Never smoked Have you smoked in the past 12 months: No Home Medications - Allergies Allergies/Adverse Reactions: Allergies Allergy/AdvReac Type Severity Reaction Status Date / Time aspirin Allergy Difficulty Verified 09/13/16 03:22 Breathing ibuprofen Allergy Verified 09/13/16 03:22 Sulfa (Sulfonamide Allergy Difficulty Verified 09/13/16 03:22 Antibiotics) Breathing - Home Medications Home Medications: Ambulatory Orders Salmeterol/Fluticasone [Advair 500Mcg/50Mcg -] 1 inh PO BID 06/24/16 Montelukast Na [Singulair -] 10 mg PO HS tablet 06/26/16 Cyclobenzaprine HCl 7.5 mg PO Q8H PRN #14 tablet 07/28/16 Famotidine [Pepcid -] 40 mg PO BID #14 tablet 09/04/16 Ondansetron [Zofran Odt -] 4 mg SL Q6H PRN #30 od.tablet 09/04/16 Oxycodone HCl/Acetaminophen [Endocet 7.5-325 mg Tablet] 1 each PO Q6H PRN #20 tablet MDD 4 tabs 09/04/16 Pantoprazole Sodium [Protonix -] 40 mg PO DAILY #30 tablet.ec 09/04/16 Family Disease History - Family Disease History Family History: Unremarkable Review of Systems - Review of Systems Constitutional: denies: Chills, Fever Cardiovascular: denies: Chest Pain Respiratory: denies: Cough Gastrointestinal: reports: Abdominal Pain. denies: Diarrhea, Vomiting Genitourinary: denies: No Symptoms Neurological: denies: Change in LOC Pain Intensity: 3 Physical Exam Vital Signs: Vital Signs Temperature 98.4 F 09/13/16 09:45 Pulse Rate 76 09/13/16 09:45 Respiratory Rate 18 09/13/16 09:45 Blood Pressure 126/74 09/13/16 09:45 O2 Sat by Pulse Oximetry (%) 94 L 09/13/16 09:30 Constitutional: Yes: Calm Neck: Yes: Supple Cardiovascular: Yes: Regular Rate and Rhythm Respiratory: Yes: Regular Gastrointestinal: Yes: Soft, Tenderness (Mild tenderness left of umbilicus, no palpable hernia noted- likely reduced). No: Tenderness, Rebound Extremities: Yes: WNL Neurological: Yes: Alert, Oriented Labs: CBC, BMP 09/13/16 03:25 09/13/16 02:43 Imaging - Results Cat Scan: Report Reviewed, Image Reviewed Problem List - Problems (1) Abdominal pain in female Code(s): R10.9 - UNSPECIFIED ABDOMINAL PAIN (2) Ventral hernia Code(s): K43.9 - VENTRAL HERNIA WITHOUT OBSTRUCTION OR GANGRENE Qualifiers: Obstruction and gangrene presence: without obstruction or gangrene Qualified Code(s): K43.9 - Ventral hernia without obstruction or gangrene Assessment/Plan 60 female with recurrent pain from ventral hernia with fat No signs of obstruction For laparoscopic possible open ventral hernia repair with mesh on 09/15/16
[2016-09-13] MEDS: PANTOPRAZOLE SODIUM 100 ML IVPB SCH (11:55)
[2016-09-13] MEDS: BUDESONIDE/FORMETEROL FUMARATE 160/4.5 mcg INHALER IH SCH ×2 (13:13→22:50)
--- NOTE | 2016-09-13 14:46 | CON.GI ---
Consult Consult Specialty:: GI Referred by:: Dr Garcia Reason for Consultation:: Abdominal pain - History of Present Illness Chief Complaint: Abdominal pain History of Present Illness: 60 F with h/o asthma, GERD, chronic pain, recently with intractable abdominal pain. She has been to the ER 6 x over past 2 weeks. She is a patient of Dr Cadena and he advised that she be admitted if pain continues. She has a louis- umbilical hernia that contains fat but is apparently the source of some of her pain.She was seen by Dr Guerrier and he is planning hernia repair on Thursday. - History Source History Provided By: Patient, Medical Record Limitations to Obtaining History: No Limitations - Past Medical History Pulmonary: Yes: Asthma - Alcohol/Substance Use Hx Alcohol Use: No - Smoking History Smoking history: Never smoked Have you smoked in the past 12 months: No Home Medications - Allergies Allergies/Adverse Reactions: Allergies Allergy/AdvReac Type Severity Reaction Status Date / Time aspirin Allergy Difficulty Verified 09/13/16 03:22 Breathing ibuprofen Allergy Verified 09/13/16 03:22 Sulfa (Sulfonamide Allergy Difficulty Verified 09/13/16 03:22 Antibiotics) Breathing - Home Medications Home Medications: Ambulatory Orders Salmeterol/Fluticasone [Advair 500Mcg/50Mcg -] 1 inh PO BID 06/24/16 Montelukast Na [Singulair -] 10 mg PO HS tablet 06/26/16 Cyclobenzaprine HCl 7.5 mg PO Q8H PRN #14 tablet 07/28/16 Famotidine [Pepcid -] 40 mg PO BID #14 tablet 09/04/16 Ondansetron [Zofran Odt -] 4 mg SL Q6H PRN #30 od.tablet 09/04/16 Oxycodone HCl/Acetaminophen [Endocet 7.5-325 mg Tablet] 1 each PO Q6H PRN #20 tablet MDD 4 tabs 09/04/16 Pantoprazole Sodium [Protonix -] 40 mg PO DAILY #30 tablet.ec 09/04/16 Physical Exam-GI Vital Signs: Vital Signs Temperature 98.4 F 09/13/16 09:45 Pulse Rate 76 09/13/16 09:45 Respiratory Rate 18 09/13/16 09:45 Blood Pressure 126/74 09/13/16 09:45 O2 Sat by Pulse Oximetry (%) 94 L 09/13/16 09:30 Constitutional: Yes: Well Nourished, Anxious HENT: Yes: Normocephalic Neck: Yes: Supple Cardiovascular: Yes: Regular Rate and Rhythm Respiratory: Yes: CTA Bilaterally Gastrointestinal Inspection: Yes: WNL ...Auscultate: Yes: Normoactive Bowel Sounds ...Palpate: Yes: Soft, Tenderness (louis-umbilical) ...Percussion: Yes: Dullness Integumentary: Yes: WNL Labs: CBC, BMP 09/13/16 03:25 09/13/16 02:43 Hepatic Panel Total Bilirubin 0.4 mg/dL (0.2-1.0) 09/13/16 02:43 AST 25 U/L (15-37) 09/13/16 02:43 ALT 17 U/L (12-78) 09/13/16 02:43 Alkaline Phosphatase 111 U/L (45-117) 09/13/16 02:43 Albumin 3.6 g/dl (3.4-5.0) 09/13/16 02:43 Assessment/Plan Patient with periumbilical hernia for surgery this week. Advised to see Dr Cadena upon discharge to f/u
--- NOTE | 2016-09-13 16:19 | EKG ---
Test Reason : Blood Pressure : / mmHG Vent. Rate : 072 BPM Atrial Rate : 072 BPM P-R Int : 150 ms QRS Dur : 096 ms QT Int : 402 ms P-R-T Axes : 059 017 038 degrees QTc Int : 440 ms NORMAL SINUS RHYTHM NONSPECIFIC T WAVE ABNORMALITY ABNORMAL ECG WHEN COMPARED WITH ECG OF 05-SEP-2016 06:35, NO SIGNIFICANT CHANGE WAS FOUND Confirmed by ELOISE FELDMAN MD ([id number]) on 09/13/2016 4:19:16 PM Referred By: Confirmed By:ELOISE FELDMAN MD
[2016-09-13] MEDS ORDERED: DEXTROSE 5%-0.45% SALINE 1,000 ML IV SCH (17:45)
[2016-09-13] MEDS ORDERED: morphine CARPU-JECT 4 MG/1 ML DISP.SYRIN IVPUSH PRN (19:10)
[2016-09-13] MEDS: MONTELUKAST NA 10 MG TABLET PO SCH (22:49)
[2016-09-14 07:29] LABS: BASOPHIL 0.7 % (0-2.0); EOSINOPHIL 9.2 % (0-4.5); MCH 30.7 pg (25.7-33.7); MCHC 33.1 g/dl (32.0-36.0); MEAN CELL VOLUME 92.7 fl (80-96); MEAN PLT VOLUME 10.5 fl (7.5-11.1); NEUTROPHILS 41.9 % (42.8-82.8); PLATELET COUNT 233 K/MM3 (134-434); WHITE BLOOD COUNT 6.3 K/mm3 (4.0-10.0)
[2016-09-14 08:10] LABS: ALBUMIN 3.4 g/dl (3.4-5.0); AMYLASE 67 U/L (25-115); ANION GAP 10 (8-16); CALCIUM 8.6 mg/dL (8.5-10.1); CO2 26 mmol/L (21-32); GLUCOSE,RANDOM 90 mg/dL (74-106)
[2016-09-14 08:13] LABS: ALK PHOS 104 U/L (45-117); BILIRUBIN,TOTAL 0.5 mg/dL (0.2-1.0); COCKROFT - GAULT 77.1035; CREATININE 0.7 mg/dL (0.55-1.02); SGOT/AST 22 U/L (15-37); SGPT/ALT 15 U/L (12-78); TOT PROT 7.1 g/dl (6.4-8.2)
--- NOTE | 2016-09-14 08:29 | PN ---
Progress Note, Physician Chief Complaint: REQUESTING TO ADVANCE DIET S/P VOMIT x 1 ON CLEARS -> WILL TRY REG DIET TODAY -> MONITOR - Current Medication List Current Medications: Active Medications Acetaminophen (Ofirmev Injection -) 1,000 mg IVPB Q6H PRN PRN Reason: FEVER OR PAIN Stop: 09/14/16 04:10 Albuterol Sulfate (Ventolin 0.083% Nebulizer Soln -) 1 amp NEB Q4H PRN PRN Reason: SHORT OF BREATH/WHEEZING Budesonide/Formoterol Fumarate (Symbicort 160/4.5mcg -) 2 puff IH BID [facility] Last Admin: 09/13/16 22:50 Dose: Not Given Docusate Sodium (Colace -) 100 mg PO BID PRN PRN Reason: CONSTIPATION Pantoprazole Sodium (Protonix 40mg Ivpb (Pre-Docked)) 100 mls @ 200 mls/hr IVPB DAILY [facility] Last Admin: 09/13/16 11:55 Dose: 200 mls/hr Dextrose/Sodium Chloride (D5-Ns -) 1,000 mls @ 50 mls/hr IV ASDIR [facility] Last Admin: 09/13/16 17:59 Dose: 50 mls/hr Montelukast Sodium (Singulair -) 10 mg PO HS [facility] Last Admin: 09/13/16 22:49 Dose: 10 mg Morphine Sulfate (Morphine Injection -) 4 mg IVPUSH Q4H PRN PRN Reason: PAIN Last Admin: 09/14/16 00:07 Dose: 4 mg Ondansetron HCl (Zofran Injection) 4 mg IVPUSH Q6H PRN PRN Reason: NAUSEA AND/OR VOMITING Last Admin: 09/14/16 00:08 Dose: 4 mg - Objective Vital Signs: Vital Signs Temperature 98.5 F 09/14/16 06:00 Pulse Rate 76 09/14/16 06:00 Respiratory Rate 20 09/14/16 06:00 Blood Pressure 112/67 09/14/16 06:00 O2 Sat by Pulse Oximetry (%) 98 09/13/16 21:00 Constitutional: Yes: Calm Neck: Yes: WNL Cardiovascular: Yes: WNL Respiratory: Yes: WNL Gastrointestinal: Yes: Tenderness Edema: No Labs: CBC, BMP 09/14/16 06:15 09/14/16 06:15 Problem List - Problems (1) Abdominal pain in female Code(s): R10.9 - UNSPECIFIED ABDOMINAL PAIN (2) Asthma Code(s): J45.909 - UNSPECIFIED ASTHMA, UNCOMPLICATED (3) Hernia Code(s): K46.9 - UNSPECIFIED ABDOMINAL HERNIA WITHOUT OBSTRUCTION OR GANGRENE Assessment/Plan 60yo Female patient with multiple ED visits for abd pain presents c/o abd pain. Patient states she was recently seen by Dr. Cadena and was told she has an abdominal hernia that may require surgery. Patient was scheduled to have endoscopy on Thursday, but was told by Dr. Cadena, if pain returns go to ER and have them call me per daughter. Patient denies n/v/d, back pain, diff breathing , fever, poor appetite, or any other complaints at this time. (1) Abdominal pain in female Code(s): R10.9 - UNSPECIFIED ABDOMINAL PAIN gi consult appreciated appreciate surg consult -> no obstruction. For laparoscopic possible open ventral hernia repair with mesh on 09/15/16 ctap -> periumb & hiatal hernia. 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
--- NOTE | 2016-09-14 09:01 | CONSULT ---
Consult - text type - Consultation Consultation Note: CARDIOLOGY ASKED BY DR. Cheng TO SEE PT. 60 YO FEMALE 09/13/16 ABDOMINAL PAIN. PT SEEN, EXAMINED. ECG REVIEWED. WORKING DX HERNIA AWAITING SURGICAL INTERVENTION. COMMENT: THERE IS NO CARDIAC CONTRA INDICATION TO GENERAL SURGERY IF FELT TO BE REQUIRED. NO RECENT MYOCARDIAL INFARCTION. NO KNOWN HEART DISEASE. HEMODYNAMICALLY STABLE. PRE OP ECG UNREMARKABLE. REC: W/U AND TREATMENT DIRECTED BY IM/GEN SURGERY. FURTHER CARDIAC TESTING IS NOT REQUIRED. THANKS. FULL NOTE DICTATED.
[2016-09-14] MEDS ORDERED: PT OWN MED DRAWER 7, Y5N ONE (09:42)
[2016-09-14] MEDS: PANTOPRAZOLE SODIUM 100 ML IVPB SCH (09:44)
[2016-09-14] MEDS: BUDESONIDE/FORMETEROL FUMARATE 160/4.5 mcg INHALER IH SCH ×3 (09:44→21:45)
[2016-09-14] MEDS ORDERED: ACETAMINOPHEN 325 MG TABLET (FP) PO PRN (11:14)
--- NOTE | 2016-09-14 15:44 | CONS ---
DATE OF CONSULTATION: 09/14/2016 REQUESTING PHYSICIAN: Jonn Garcia MD PATIENT PROFILE: The patient is a 60-year-old female admitted on September 13, 2016, because of umbilical/abdominal pain. The patient has a known periumbilical hernia. Surgical intervention had been advised for elective repair; however, increasing pain led to an urgent admission. She never had chest pain. She denies shortness of breath, palpitations, or syncope. A preoperative cardiology consultation was requested. There is no history of diabetes, smoking, previous myocardial infarction, angina, or congestive heart failure. PRESENT MEDICATIONS: Singulair and Protonix. FAMILY HISTORY: Her mother from trauma. Her father from alcohol abuse. There is no family history of myocardial infarction or sudden . SOCIAL HISTORY: She manages her own affairs. There is no history of smoking or alcohol abuse. PRIOR MEDICAL HISTORY: Asthma. REVIEW OF SYSTEMS: General: No fever or chills. Cardiac: No edema, no orthopnea. Pulmonary: No hemoptysis. PHYSICAL EXAMINATION: General: The patient appears fit, in no distress, lying flat, awake and alert. Vital Signs: Temperature afebrile, pulse is 76, blood pressure is 112/67, respiratory rate is 20 per minute, oxygen saturation is 98% on ambient air. Neck: There is no neck vein distention, there is no carotid bruit. Lungs: The lung jeffery are clear. Heart: The heart sounds are normal. No murmur, no gallop is detected. The PMI is normal and not displaced. Abdomen: Soft. There are active bowel sounds. Extremities: There is no peripheral edema. DATABASE: The electrocardiogram demonstrates sinus rhythm, minor nonspecific ST and T wave changes. LABORATORY STUDIES OF NOTE: The white blood cell count is 6.3, hematocrit 38%, platelet count is 233,000. The electrolytes are normal, BUN is 8, creatinine 0.7. The urinalysis is negative for protein and glucose. IMPRESSION: The working diagnosis is a periumbilical ventral hernia awaiting surgical intervention. COMMENT: There is no cardiac contraindication to general surgery. There has been no recent myocardial infarction, the patient is hemodynamically stable without evidence of heart failure. The preoperative electrocardiogram is unremarkable. As such, the operation may proceed with an acceptable cardiac risk if felt to be required by Internal Medicine and General Surgery. I have recommended the followin. Workup and therapy as directed by Internal Medicine and General Surgery. 2. No further cardiac testing is required at this time. Thank you for allowing me to take part in the care of this pleasant patient. MAYTE ANAND M.D. [id number] CC: MD Israel Cardoso MD
[2016-09-14] MEDS: MONTELUKAST NA 10 MG TABLET PO SCH (21:45)
[2016-09-15 08:49] LABS: EOSINOPHIL 11.9 % (0-4.5); MCH 30.7 pg (25.7-33.7); MCHC 33.1 g/dl (32.0-36.0); MEAN CELL VOLUME 92.7 fl (80-96); MEAN PLT VOLUME 10.2 fl (7.5-11.1); NEUTROPHILS 35.3 % (42.8-82.8); PLATELET COUNT 241 K/MM3 (134-434); RDW 14.3 % (11.6-15.6); WHITE BLOOD COUNT 5.5 K/mm3 (4.0-10.0)
[2016-09-15] MEDS ORDERED: PT OWN MED DRAWER 7, Y5N ONE (09:06)
[2016-09-15 09:09] LABS: INR 1.01 (0.82-1.09); PROTHROMBIN TIME (PATIENT) 11.1 SEC (9.98-11.88)
[2016-09-15 09:11] LABS: ALBUMIN 3.1 g/dl (3.4-5.0); ANION GAP 8 (8-16); CALCIUM 8.6 mg/dL (8.5-10.1); CO2 27 mmol/L (21-32); GLUCOSE,RANDOM 86 mg/dL (74-106)
[2016-09-15 09:12] LABS: ACTIVATED PTT 27.4 SECONDS (26.9-34.4)
[2016-09-15 09:16] LABS: ALK PHOS 88 U/L (45-117); BILIRUBIN,TOTAL 0.4 mg/dL (0.2-1.0); COCKROFT - GAULT 89.9555; CREATININE 0.6 mg/dL (0.55-1.02); SGOT/AST 25 U/L (15-37); SGPT/ALT 18 U/L (12-78); TOT PROT 6.5 g/dl (6.4-8.2)
[2016-09-15] MEDS: BUDESONIDE/FORMETEROL FUMARATE 160/4.5 mcg INHALER IH SCH ×3 (09:16→22:31)
[2016-09-15] MEDS ORDERED: ceFAZolin SODIUM 1 GM VIAL IVPB ONE (10:10)
[2016-09-15] MEDS ORDERED: DESFLURANE GAS 240 ML BOTTLE IH ONE ×2 (10:19→10:22)
[2016-09-15] MEDS ORDERED: ACETAMINOPHEN INJECTION 100 ML IVPB ONE (10:28)
[2016-09-15] MEDS ORDERED: MIDAZOLAM HCL 2 MG/2 ML SINGLE DOSE VIAL ONE (10:28)
[2016-09-15] MEDS ORDERED: PROPOFOL 20 ML ONE ×2 (10:29)
[2016-09-15] MEDS ORDERED: LIDOCAINE HCL/PF 2% SDV 5ML VIAL ONE ×2 (10:32→12:17)
[2016-09-15] MEDS ORDERED: DEXAMETHASONE SOD PHOSPHATE 4 MG/1 ML VIAL ONE (10:32)
[2016-09-15] MEDS ORDERED: VECURONIUM BROMIDE 10 MG VIAL ONE (10:35)
[2016-09-15] MEDS ORDERED: SUCCINYLCHOLINE CHLORIDE 200 MG/10 ML VIAL ONE (11:20)
[2016-09-15] MEDS ORDERED: PHENYLEPHRINE HCL 10 MG/1 ML SINGLE DOSE VIAL ONE (11:44)
[2016-09-15] MEDS ORDERED: HYDROmorphone HCL/PF 1 MG/ML VIAL (FOR PYXIS CHARGING ONLY) ONE (11:50)
[2016-09-15] MEDS ORDERED: NEOSTIGMINE METHYLSULFATE 0.5 MG/ML - 10 ML MDV ONE (12:03)
--- NOTE | 2016-09-15 12:50 | OP ---
Operative Note - Note: Operative Date: 09/15/16 Pre-Operative Diagnosis: Ventral hernia with pain Operation: Diagnostic laparoscopy, laparoscopic lysis of adhesions, exploratory laparotomy, lysis of adhesions, primary repair of ventral hernia, repair of small bowel serosal defects Findings: Left ventral/periumbilical hernia Dense small bowel adhesions to the anterior abdominal wall Post-Operative Diagnosis: Other (Ventral hernia, dense intraabdominal adhesions) Surgeon: Israel Guerrier Anesthesia: General Specimens Removed: None Estimated Blood Loss (mls): 5 Operative Report Dictated: Yes
[2016-09-15] MEDS ORDERED: HYDROmorphone HCL CARPU-JECT 2 MG/1 ML DISP.SYRIN ONE (13:21)
[2016-09-15] MEDS ORDERED: ONDANSETRON 4 MG/2 ML VIAL IVPUSH PRN ×2 (13:22→14:03)
--- NOTE | 2016-09-15 13:24 | PN ---
Progress Note, Physician Chief Complaint: just came out of OR in pacu sleepy little discomfort - Current Medication List Current Medications: Active Medications Acetaminophen (Tylenol -) 650 mg PO Q6H PRN PRN Reason: FEVER OR PAIN Albuterol Sulfate (Ventolin 0.083% Nebulizer Soln -) 1 amp NEB Q4H PRN PRN Reason: SHORT OF BREATH/WHEEZING Budesonide/Formoterol Fumarate (Symbicort 160/4.5mcg -) 2 puff IH BID [facility] Last Admin: 09/15/16 09:17 Dose: Not Given Docusate Sodium (Colace -) 100 mg PO BID PRN PRN Reason: CONSTIPATION Pantoprazole Sodium (Protonix 40mg Ivpb (Pre-Docked)) 100 mls @ 200 mls/hr IVPB DAILY [facility] Last Admin: 09/14/16 09:44 Dose: 200 mls/hr Dextrose/Sodium Chloride (D5-Ns -) 1,000 mls @ 50 mls/hr IV ASDIR [facility] Last Admin: 09/14/16 21:44 Dose: Not Given Montelukast Sodium (Singulair -) 10 mg PO HS [facility] Last Admin: 09/14/16 21:45 Dose: 10 mg Morphine Sulfate (Morphine Injection -) 4 mg IVPUSH Q4H PRN PRN Reason: PAIN Last Admin: 09/14/16 00:07 Dose: 4 mg Ondansetron HCl (Zofran Injection) 4 mg IVPUSH Q6H PRN PRN Reason: NAUSEA AND/OR VOMITING Last Admin: 09/14/16 00:08 Dose: 4 mg - Objective Vital Signs: Vital Signs Temperature 98.2 F 09/15/16 09:13 Pulse Rate 72 09/15/16 09:13 Respiratory Rate 20 09/15/16 09:13 Blood Pressure 123/74 09/15/16 09:13 O2 Sat by Pulse Oximetry (%) 95 09/15/16 09:20 Constitutional: Yes: Calm Neck: Yes: Trachea Midline Cardiovascular: Yes: Regular Rate and Rhythm, S1, S2 Respiratory: Yes: CTA Bilaterally, Diminished, On Nasal O2 Gastrointestinal: Yes: Other (midline dressing in place) Extremities: Yes: Other (scd) Neurological: Yes: Alert Labs: CBC, BMP 09/15/16 07:55 09/15/16 07:55 INR, PTT INR 1.01 (0.82-1.09) 09/15/16 07:55 Problem List - Problems (1) Ventral hernia Assessment/Plan: laproscopic then open ventral hernia repair and lysis of adhesion and serosal defect repaired iv fluids pain control incentive spirometry dvt ppx Code(s): K43.9 - VENTRAL HERNIA WITHOUT OBSTRUCTION OR GANGRENE Qualifiers: Obstruction and gangrene presence: without obstruction or gangrene Qualified Code(s): K43.9 - Ventral hernia without obstruction or gangrene
[2016-09-15] MEDS: HYDROmorphone HCL CARPU-JECT 1 MG/1 ML DISP.SYRIN IVPUSH PRN ×4 (13:49→14:12)
[2016-09-15] MEDS ORDERED: DOCUSATE SODIUM 100 MG CAPSULE (FP) PO PRN (14:03)
[2016-09-15] MEDS ORDERED: ALBUTEROL SO4 0.083% IH SOL 2.5 MG/3 ML VIAL.NEB. NEB PRN (14:03)
[2016-09-15] MEDS ORDERED: DEXTROSE 5%-NORMAL SALINE 1,000 ML IV SCH (14:03)
[2016-09-15] MEDS ORDERED: ACETAMINOPHEN 325 MG TABLET (FP) PO PRN (14:03)
--- NOTE | 2016-09-15 20:12 | OP ---
DATE OF OPERATION: 09/15/2016 SURGEON: Dionicio Guerrier M.D. PREOPERATIVE DIAGNOSIS: Ventral hernia with pain. POSTOPERATIVE DIAGNOSIS: Ventral hernia with dense intraabdominal adhesions from the small bowel to the anterior abdominal wall. PROCEDURE: Diagnostic laparoscopy, laparoscopic lysis of adhesions, exploratory laparotomy, lysis of adhesions, primary repair of ventral hernia defect, and repair of multiple small bowel serosal defects. SPECIMENS: None. ESTIMATED BLOOD LOSS: 5 mL. DRAINS: None. ANESTHESIA: GT. REASON FOR THE PROCEDURE: This 60-year-old female presented to the hospital multiple times with abdominal pain. She was found to have a ventral/left periumbilical hernia which was reducible on each admission. She was scheduled for surgery electively ; however, presented to the hospital again with abdominal pain. Because of her recurrent abdominal pain, she was consented for laparoscopic possible open ventral hernia repair with possible mesh. The risks and benefits of the procedure were explained. This included bleeding, infection, recurrence of hernia, HI, DVT, PE , injury to surrounding abdominal structures including bowel, colon, bladder, liver, vessel injury, nerve injury, anastomotic leak, abscess formation as some of the complications. She understood and signed for consent. DESCRIPTION OF PROCEDURE: Patient was placed supine on the operating room table. She underwent general endotracheal intubation. The abdomen was prepped and draped in sterile fashion. Timeout was performed. An incision was made in the right lateral abdominal wall, and a Veress needle inserted. Pneumoperitoneum was established. A Veress needle was removed, and entrance to the abdominal cavity was obtained using a 5-mm Optiview trocar under direct visualization with the laparoscope. The abdomen was inspected and omentum and bowel were noted to be adherent to the anterior abdominal wall. A 12-mm trocar was placed in the right upper quadrant and another 5-mm trocar placed in the right lateral abdominal wall in the right upper quadrant. Omental adhesions were carefully taken down from the abdominal wall with a combination of both bowel graspers as well as harmonic scalpel. The hernia contents, which was noted to be incarcerated fat, was fully reducible after meticulous dissection. Right next to the hernia defect, however, there was noted to be dense adhesions from the small bowel to the anterior abdominal wall. Attempt was made to free the small bowel from the anterior abdominal wall; however, the adhesions were extremely dense, and it was unable to be done laparoscopically because of this. A conversion to a mini-exploratory laparotomy was performed. An incision was made just above the umbilicus to the left of the umbilicus and towards the pubis. Skin, subcutaneous tissue were dissected down to the level of the fascia. The fascia was divided in the midline. Entrance to the abdominal cavity was obtained. The left hernia defect was immediately noted, and noted to be approximately 1.5 to 2 cm in size, in all dimensions. The laparoscopic trocars were removed. The small bowel that was densely adhered to the abdominal wall was carefully dissected away from the fascia. This was done using both Metzenbaum scissors as well as electrocautery. After some time and meticulous dissection, the small bowel was freed from the anterior abdominal wall. The bowel was inspected and several serosal defects were noted. These were repaired using 3-0 silk sutures in Lembert fashion. The rest of the bowel was inspected, and no further injury was noted. The bowel was placed back in the abdominal cavity, copious irrigation suction was performed until clear. The hernia defect was closed primarily using two 0 Vicryl sutures in [id number] fashion. The hernia was noted to be fully closed and repaired. Further irrigation suction was performed. The fascia was closed using 2 number 1 looped PDS sutures and secured. The deep subcutaneous tissue was closed using 3-0 Vicryl suture, and all skin incisions were closed using staplers. Sterile dressings were applied. The patient tolerated the procedure well, transferred to recovery room in stable condition. DIONICIO GUERRIER M.D. [id number]
[2016-09-15] MEDS ORDERED: MONTELUKAST NA 10 MG TABLET PO SCH (22:00)
[2016-09-15] MEDS: morphine CARPU-JECT 4 MG/1 ML DISP.SYRIN IVPUSH PRN (22:29)
[2016-09-16] MEDS: morphine CARPU-JECT 4 MG/1 ML DISP.SYRIN IVPUSH PRN ×3 (02:38→11:15)
[2016-09-16 08:30] LABS: BASOPHIL 0.5 % (0-2.0); MCH 30.3 pg (25.7-33.7); MCHC 32.7 g/dl (32.0-36.0); MEAN CELL VOLUME 92.8 fl (80-96); MEAN PLT VOLUME 12.4 fl (7.5-11.1); NEUTROPHILS 77.1 % (42.8-82.8); PLATELET COUNT 222 K/MM3 (134-434); RDW 14.4 % (11.6-15.6); WHITE BLOOD COUNT 11.3 K/mm3 (4.0-10.0)
[2016-09-16 09:03] LABS: ANION GAP 10 (8-16); CALCIUM 8.5 mg/dL (8.5-10.1); CO2 27 mmol/L (21-32); GLUCOSE,RANDOM 105 mg/dL (74-106)
[2016-09-16 09:06] LABS: ALK PHOS 84 U/L (45-117); BILIRUBIN,TOTAL 0.3 mg/dL (0.2-1.0); COCKROFT - GAULT 89.9555; CREATININE 0.6 mg/dL (0.55-1.02); SGOT/AST 23 U/L (15-37); SGPT/ALT 16 U/L (12-78); TOT PROT 6.5 g/dl (6.4-8.2)
[2016-09-16 09:20] VITALS: BP 127/70; PULSE 72; TEMP 98.3
--- NOTE | 2016-09-16 09:59 | PN ---
[id number] laparotomy, ying, primary repair of ventral hernia, repair of small bowel serosal defects Alert. C/o of incisional tenderness. Pain control via PRN meds. She has gotten out of bed and ambulate a little. States she is tolerating her regular diet. Voiding spontaneously. Passing flatus. Deneis n/v/f/c, CP, SOB, weakness or dizzy. Last Vital Signs Temp Pulse Resp BP Pulse Ox 98.3 F 72 20 127/70 96 09/16/16 09:05 09/16/16 09:05 09/16/16 09:05 09/16/16 09:05 09/15/16 22:00 CBC, BMP 09/16/16 05:45 09/16/16 05:45 PE Gen: alert. nad ABD: surgical ports and midline incision intact with bimal. No hematoma. No drainage. No hematoma <Eliazar Rowe P - Last Filed: 09/16/16 09:54> - Note Progress Note: Agree POD 1 Pain controlled with mediation No nausea Vital Signs Period Temp Pulse Resp BP Sys/Zuniga Pulse Ox Last 24 Hr 97.6 F-99.0 F 71-108 18-24 90-141/57-87 93-99 Abd soft, incisional tenderness CBC, BMP 09/16/16 05:45 09/16/16 05:45 Doing well Can be discharged home from surgical standpoint No lifting more than 10 pounds x 8 weeks Follow up in 2 weeks for staple removal <Israel Guerrier - Last Filed: 09/16/16 11:13> Problem List - Problems (1) Abdominal pain in female Assessment/Plan: POD #1 s/p s/p Dx laparoscopy --> converted to exploratory laparotomy, ying, primary repair of ventral hernia, repair of small bowel serosal defects Incentive spirometer Per Dr. Guerrier, patient is cleared to go home from a surgical standpoint. Will need script for pain management f/u with Dr. Guerrier in his office downstairs in 10-14 days for staple removal. On behalf of Dr. Guerrier, thank you for the opportunity to participate in your patient's care Code(s): R10.9 - UNSPECIFIED ABDOMINAL PAIN <Eliazar Rowe P - Last Filed: 09/16/16 09:54> - Problems (1) Abdominal pain in female Code(s): R10.9 - UNSPECIFIED ABDOMINAL PAIN (2) Ventral hernia Code(s): K43.9 - VENTRAL HERNIA WITHOUT OBSTRUCTION OR GANGRENE Qualifiers: Obstruction and gangrene presence: without obstruction or gangrene Qualified Code(s): K43.9 - Ventral hernia without obstruction or gangrene <Israel Guerrier - Last Filed: 09/16/16 11:13>
[2016-09-16] MEDS ORDERED: PANTOPRAZOLE SODIUM 100 ML IVPB SCH (10:00)
[2016-09-16] MEDS: BUDESONIDE/FORMETEROL FUMARATE 160/4.5 mcg INHALER IH SCH (10:30)
[2016-09-16] MEDS: PANTOPRAZOLE SODIUM 100 ML IVPB SCH (10:30)
--- NOTE | 2016-09-16 11:39 | PN ---
Progress Note (short form) - Note Progress Note: Anesthesia POD#1 S/P Ventral hernia repair under GA No N/V,pain responded to morphine.VSS. Started orals. A/P No complications to anesthesia seen. Jessica Bill MD.
--- NOTE | 2016-09-16 11:51 | DS ---
Physical Examination Vital Signs: Vital Signs Temperature 98.3 F 09/16/16 09:05 Pulse Rate 72 09/16/16 09:05 Respiratory Rate 20 09/16/16 09:05 Blood Pressure 127/70 09/16/16 09:05 O2 Sat by Pulse Oximetry (%) 96 09/15/16 22:00 ate breakfast passing flatus no fever Constitutional: Yes: Calm Cardiovascular: Yes: Regular Rate and Rhythm, S1, S2 Respiratory: Yes: CTA Bilaterally Gastrointestinal: Yes: Soft, Other (bharati midline clean and on upper quadrant on right side) Edema: No Neurological: Yes: Alert, Oriented Labs: CBC, BMP 09/16/16 05:45 09/16/16 05:45 Discharge Summary Reason For Visit: ABDOMINAL PAIN IN FEMALE Current Active Problems Abdominal pain in female (Acute) Hernia (Acute) Ventral hernia (Acute) Hospital Course: 60yo Female patient with multiple ED visits for abd pain presents c/o abd pain. Patient states she was recently seen by Dr. Cadena and was told she has an abdominal hernia that may require surgery. Patient was scheduled to have endoscopy on Thursday, but was told by Dr. Cadena, if pain returns go to ER and have them call me per daughter. Patient denies n/v/d, back pain, diff breathing , fever, poor appetite, or any other complaints at this time. Timing/Duration: reports: constant, getting worse Quality: reports: severe Abdominal Pain Onset Location: reports: epigastric Pain Radiation: reports: no radiation Activities at Onset: reports: none, no specific activity Treatment Prior to Arrive: worse with: analgesics, antacids, cold pack, heat, laxative, enema, other Aggravating Factors: worse with: None, Defecation, Eating, Emotional upset, Exertion, [place], Movement, Voiding, Change in position Alleviating Factors: worse with: None, Belching, Shallow Breathing, Defecation, Eating, Holding Breath, Passing Gas, Change in Position, Rest, Voiding, Vomiting patient has laproscopic procedure converted to exploratory laprotomy with ventral hernia repair and serosal defects repair and lysis of adhession of bowel to ant abdominal wall patient tolerated procedure well eating passing gas to go home today pain control take stool softners Condition: Fair - Instructions Diet, Activity, Other Instructions: [address]uston. Israel Guerrier M.D. [address] [place], [place] [id number] [facility] [place] [address] Robotic, Bariatric and General Surgery Postoperative Instructions for Bariatric Surgery Activity: Resume normal everyday activity as tolerated. You may walk and climb stairs without any limitation. We encourage you to walk as often as you can Do not lift anything more than 10 pounds for 8 weeks. At that time, you can return to full activity, including the gym, without limitation. Do not drive a motor vehicle while taking prescribes narcotic pain medication. Wound Care: Bharati to be removed in Dr. Guerrier's office in 14 days. If incisions become red, warm or open, please call the office. Diet: Resume your normal everyday diet as tolerated. Medications/Pain Management: You may resume previous medications unless told otherwise. The pills may be swallowed whole or broken if scored. You may take the prescribed narcotic pain medication as needed. If the narcotic medication is not needed for pain control, you may take Tylenol. Follow up: Call the office at [phone] for an appointment 2 weeks after you surgical procedure Referrals: Umer Cadena MD [Primary Care Provider] - Israel Guerrier MD [Staff Physician] - 2 Weeks (staple removal) Disposition: HOME - Home Medications Comprehensive Discharge Medication List: Ambulatory Orders Salmeterol/Fluticasone [Advair 500Mcg/50Mcg -] 1 inh PO BID 06/24/16 Montelukast Na [Singulair -] 10 mg PO HS tablet 06/26/16 Cyclobenzaprine HCl 7.5 mg PO Q8H PRN #14 tablet 07/28/16 Famotidine [Pepcid -] 40 mg PO BID #14 tablet 09/04/16 Ondansetron [Zofran Odt -] 4 mg SL Q6H PRN #30 od.tablet 09/04/16 Oxycodone HCl/Acetaminophen [Endocet 7.5-325 mg Tablet] 1 each PO Q6H PRN #20 tablet MDD 4 tabs 09/04/16 Pantoprazole Sodium [Protonix -] 40 mg PO DAILY #30 tablet.ec 09/04/16 Docusate Sodium [Colace -] 100 mg PO TID #90 capsule 09/16/16 Oxycodone HCl/Acetaminophen [Percocet 5-325 mg Tablet] 1 - 2 tab PO Q6H #28 tab MDD 4 09/16/16
== END 2016-09-16 14:31 | disposition home or self-care (01) | DRG 223 ==
LOC: JER 02:12 → JERBED 08:36 → J5S 09:18 → OBSVTOIN 09:56
PROVIDERS: ADMIT Family Medicine; ATTEND Family Medicine
PROC: 0JN83ZZ Release Abdomen Subcutaneous Tissue and Fascia, Percutaneous Approach (ICD-10-PCS; 2016-09-15)
PROC: 0WQF0ZZ Repair Abdominal Wall, Open Approach (ICD-10-PCS; principal; 2016-09-15 11:30)
PROC: 0WJF4ZZ Inspection of Abdominal Wall, Percutaneous Endoscopic Approach (ICD-10-PCS; 2016-09-15 11:30)
PROC: 0DQ80ZZ Repair Small Intestine, Open Approach (ICD-10-PCS; 2016-09-15 11:30)
DX: K43.9 Ventral hernia without obstruction or gangrene (principal); J45.909 Unspecified asthma, uncomplicated; K21.9 Gastro-esophageal reflux disease without esophagitis; G89.29 Other chronic pain; K66.0 Peritoneal adhesions (postprocedural) (postinfection); Z53.31 Laparoscopic surgical procedure converted to open procedure
CPT/HCPCS: 36415; 71020-TC; 74020-TC; 74176-TC; 80053; 81003; 82150; 83690; 85025; 85610; 85730; 86850; 86900; 86901; 93005; 93010; 94760; 99284-25; G0378

== ENCOUNTER 2016-09-20 17:19 | Emergency (ER) | payer OTHER ==
[2016-09-20 17:25] VITALS: BMI 21.7
[2016-09-20] MEDS ORDERED: morphine CARPU-JECT 4 MG/1 ML DISP.SYRIN IVPUSH ONE (17:48)
[2016-09-20] MEDS ORDERED: ONDANSETRON 4 MG/2 ML VIAL IVPUSH ONE (17:48)
[2016-09-20] MEDS ORDERED: SODIUM CHLORIDE 1,000 ML IV SCH (18:00)
[2016-09-20] MEDS ORDERED: ONDANSETRON 4 MG/2 ML VIAL ONE (18:06)
[2016-09-20] MEDS ORDERED: morphine CARPU-JECT 4 MG/1 ML DISP.SYRIN ONE (18:06)
[2016-09-20 18:07] LABS: BASOPHIL 0.9 % (0-2.0); EOSINOPHIL 11.5 % (0-4.5); MCH 30.6 pg (25.7-33.7); MCHC 33.5 g/dl (32.0-36.0); MEAN CELL VOLUME 91.2 fl (80-96); MEAN PLT VOLUME 9.1 fl (7.5-11.1); NEUTROPHILS 47.7 % (42.8-82.8); PLATELET COUNT 320 K/MM3 (134-434); RDW 14.4 % (11.6-15.6); WHITE BLOOD COUNT 8.6 K/mm3 (4.0-10.0)
--- NOTE | 2016-09-20 18:08 | PDOC ---
History of Present Illness - General History Source: Patient, Family, Old Records Exam Limitations: No Limitations <Serafin Garcia - Last Filed: 09/20/16 22:17> - General History Source: Patient, Family Exam Limitations: No Limitations - History of Present Illness Initial Comments: 09/20/16 18:14 The patient is a 60 year old male, with a significant past medical history of asthma, hyperlipidemia, and a periumbilical hernia, who presents to the emergency department complaining of abdominal pain radiating into the back s/p ventral/left periumbilical hernia repair 5 days ago. As per daughter the patient began to experience pain the day after her surgery. However, her pain today is different from the day of the surgery. She reports associated right- sided rib pain. She reports nausea, but denies vomiting, diarrhea or constipation. She denies any fever or chills. The patient reports taking tylenol and 1 oxycodone for the pain, with no relief. Patient states the pain is exacerbated when lying down or sitting. She reports she is unable to sleep secondary to pain. The daughter reports the patient has been given morphine in the past for abdominal pain with no relief. The patient reports she has been eating normally. The patient denies any dysuria, hematuria, frequency, or urgency. Allergies: Sulfa(Sulfonamide Antibiotics), ibuprofen, and aspirin Past Surgical History: Section, Periumbilical hernia repair Social History: Non-smoker. Denies alcohol or drug use. PCP: Dr. Cadena Surgeon: Dr. Guerrier <Keith Clark - Last Filed: 09/20/16 22:30> - General Chief Complaint: Pain Stated Complaint: POST OP PAIN Time Seen by Provider: 09/20/16 17:39 Past History - Past Medical History Anemia: No Asthma: Yes Cancer: No Cardiac Disorders: No CVA: No COPD: No CHF: No Dementia: No Diabetes: No GI Disorders: No Disorders: No HTN: No Hypercholesterolemia: Yes Liver Disease: No Seizures: No Thyroid Disease: No - Surgical History Abdominal Surgery: Yes (HERNIA) Appendectomy: No Cardiac Surgery: No Cholecystectomy: No Lung Surgery: No Neurologic Surgery: No Orthopedic Surgery: No - Immunization History Immunization Up to Date: No - Psycho/Social/Smoking Cessation Hx Anxiety: No Suicidal Ideation: No Smoking History: Never smoked Have you smoked in the past 12 months: No Information on smoking cessation initiated: No Hx Alcohol Use: No Drug/Substance Use Hx: No Substance Use Type: None Hx Substance Use Treatment: No <Serafin Garcia - Last Filed: 09/20/16 22:17> <Keith Clark - Last Filed: 09/20/16 22:30> - Past Medical History Allergies/Adverse Reactions: Allergies Allergy/AdvReac Type Severity Reaction Status Date / Time aspirin Allergy Difficulty Verified 09/20/16 17:25 Breathing ibuprofen Allergy Verified 09/20/16 17:25 Sulfa (Sulfonamide Allergy Difficulty Verified 09/20/16 17:25 Antibiotics) Breathing Home Medications: Ambulatory Orders Salmeterol/Fluticasone [Advair 500Mcg/50Mcg -] 1 inh PO BID 06/24/16 Montelukast Na [Singulair -] 10 mg PO HS tablet 06/26/16 Pantoprazole Sodium [Protonix -] 40 mg PO DAILY #30 tablet.ec 09/04/16 Docusate Sodium [Colace -] 100 mg PO TID #90 capsule 09/16/16 Oxycodone HCl/Acetaminophen [Percocet 5-325 mg Tablet] 1 tab PO Q6H #14 tab MDD 4 09/16/16 Mag Hydrox/Al Hydrox/Simeth [Mylanta Suspension -] 30 ml PO Q6H PRN #1 bottle Ondansetron HCl [Zofran] 4 mg PO Q6H PRN #15 tablet 09/20/16 Ranitidine HCl [Zantac] 150 mg PO BID PRN #14 tablet 09/20/16 Review of Systems - Review of Systems Able to Perform ROS?: Yes Comments:: 09/20/16 18:14 GENERAL/CONSTITUTIONAL: No fever or chills. No weakness. HEAD, EYES, EARS, NOSE AND THROAT: No change in vision. No ear pain or discharge. No sore throat. CARDIOVASCULAR: No chest pain or shortness of breath. RESPIRATORY: No cough, wheezing, or hemoptysis. GASTROINTESTINAL: Yes: +abdominal pain, +nausea. No vomiting, diarrhea or constipation. GENITOURINARY: No dysuria, frequency, or change in urination. MUSCULOSKELETAL: Yes: +back pain. No joint or muscle swelling or pain. No neck pain. SKIN: No rash NEUROLOGIC: No headache, vertigo, loss of consciousness, or change in strength/ sensation. ENDOCRINE: No increased thirst. No abnormal weight change. HEMATOLOGIC/LYMPHATIC: No anemia, easy bleeding, or history of blood clots. ALLERGIC/IMMUNOLOGIC: No hives or skin allergy. <Keith Clark - Last Filed: 09/20/16 22:30> *Physical Exam - Vital Signs Last Vital Signs Temp Pulse Resp BP Pulse Ox 98.3 F 107 H 18 149/85 98 09/20/16 17:20 09/20/16 17:20 09/20/16 17:20 09/20/16 17:20 09/20/16 17:20 <Serafin Garcia - Last Filed: 09/20/16 22:17> - Vital Signs Last Vital Signs Temp Pulse Resp BP Pulse Ox 98.3 F 107 H 18 149/85 98 09/20/16 17:20 09/20/16 17:20 09/20/16 17:20 09/20/16 17:20 09/20/16 17:20 - Physical Exam Comments: 09/20/16 18:14 GENERAL: Awake, alert, and fully oriented, in no acute distress HEAD: No signs of trauma EYES: PERRLA, EOMI, sclera anicteric, conjunctiva clear ENT: Auricles normal inspection, hearing grossly normal, nares patent, oropharynx clear without exudates. Moist mucosa NECK: Normal ROM, supple, no lymphadenopathy, JVD, or masses LUNGS: Breath sounds equal, clear to auscultation bilaterally. No wheezes, and no crackles HEART: Regular rate and rhythm, normal S1 and S2, no murmurs, rubs or gallops ABDOMEN: Surgical scars clean, dry, intact, and well granulating. Bharati in the RLQ and RUQ. Tenderness to the RLQ and RUQ. Soft, normoactive bowel sounds. No guarding, no rebound. No masses EXTREMITIES: Normal range of motion, no edema. No clubbing or cyanosis. No cords, erythema, or tenderness NEUROLOGICAL: Cranial nerves II through XII grossly intact. Normal speech, normal gait SKIN: Warm, Dry, normal turgor, no rashes or lesions noted. <Keith Clark - Last Filed: 09/20/16 22:30> ED Treatment Course - LABORATORY CBC & Chemistry Diagram: 09/20/16 17:48 09/20/16 17:48 - RADIOLOGY Radiology Studies Ordered: Category Date Time Status ABDOMEN & PELVIS CT WITH CONTR [CT] Stat CT Scan 09/20/16 17:48 Ordered <Serafin Garcia - Last Filed: 09/20/16 22:17> - LABORATORY CBC & Chemistry Diagram: 09/20/16 17:48 09/20/16 17:48 - ADDITIONAL ORDERS Additional order review: 09/20/16 17:48 RBC 4.07 MCV 91.2 MCHC 33.5 RDW 14.4 MPV 9.1 D Neutrophils % 47.7 D Lymphocytes % 31.0 D Monocytes % 8.9 Eosinophils % 11.5 H D Basophils % 0.9 - RADIOLOGY Radiograph Interpretation: 09/20/16 21:54 EXAM: CT Abdomen and Pelvis INTERPRETED BY: Dr. Prieto REVIEWED BY: Dr. Garcia IMPRESSION: There is mild atelectasis in the lower lobes. There is cardiomegaly. There are no obvious gallstones. There is a moderate amount of ingested fluid and debris noted within the stomach at this time. There are surgical skin bharati noted abdominal wall above the umbilical region. There is mild stranding of the subcutaneous fat. Small air lucencies are noted in the left lower abdominal wall fat are likely postsurgical. There is no hydronephrosis. There are no renal calculi. There are mildly prominent fluid and air-filled small bowel loops noted in the mid and lower abdomen, possibly postsurgical ileus. There are a few mildly thickened small bowel loops noted in the right lower quadrant ostomy indicative of mild enteritis. There is a tiny extraluminal air bubble noted in the right lower quadrant fat possibly post surgical? There is sigmoid diverticulosis without obvious diverticulitis. The appendix is normal in size. There is no evidence of appendicitis. Urinary bladder is partially decompressed. Moderate free fluid is noted dependent portion of the pelvis. - Medications Given in the ED: ED Medications Discontinued Medications Generic Name Dose Route Start Last Admin Trade Name Freq PRN Reason Stop Dose Admin Morphine Sulfate 4 mg 09/20/16 17:48 09/20/16 18:05 Morphine Injection - IVPUSH 09/20/16 17:49 4 mg ONCE ONE Administration Ondansetron HCl 4 mg 09/20/16 17:48 09/20/16 18:05 Zofran Injection IVPUSH 09/20/16 17:49 4 mg ONCE ONE Administration <Keith Clark - Last Filed: 09/20/16 22:30> Medical Decision Making - Medical Decision Making 09/20/16 17:54 A portion of this note was written by my scribe, under my supervision. Vital Signs Temp Pulse Resp BP Pulse Ox 98.3 F 107 H 18 149/85 98 09/20/16 17:20 09/20/16 17:20 09/20/16 17:20 09/20/16 17:20 09/20/16 17:20 60 year old female with past medical history of asthma, POD day 5 s/p ventral hernia repair presents with diffuse abdominal pain. The patient was discharged 4 days ago. Upon discharge, pt was noted to have minimal pain. Noted the day after discharge, she started to constant, severe R sided abdominal pain. Reports nauesa and vomiting, but no diarrhea. Pt continues to stool. Denies dysuria, fevers. Pt reports that tylenol and oxycodone was not improving the pain. Came into ED for further evaluation. This is post op pain. But will need to r/o post op complications. Labs, CT scan of abdomen and pelvis, pain control and reassess. 09/20/16 22:14 CBC, BMP 09/20/16 17:48 09/20/16 17:48 CMP Sodium 142 mmol/L (136-145) 09/20/16 17:48 Potassium 3.5 mmol/L (3.5-5.1) 09/20/16 17:48 Chloride 104 mmol/L (98-107) 09/20/16 17:48 Carbon Dioxide 26 mmol/L (21-32) 09/20/16 17:48 Anion Gap 12 (8-16) 09/20/16 17:48 BUN 14 mg/dL (7-18) D 09/20/16 17:48 Creatinine 0.7 mg/dL (0.55-1.02) 09/20/16 17:48 Creat Clearance w eGFR > 60 (>60) 09/20/16 17:48 Random Glucose 96 mg/dL (74-106) 09/20/16 17:48 Lactic Acid 0.868 mmol/L (0.4-2.0) 09/20/16 17:58 Calcium 9.3 mg/dL (8.5-10.1) 09/20/16 17:48 Total Bilirubin 0.5 mg/dL (0.2-1.0) D 09/20/16 17:48 AST 43 U/L (15-37) H D 09/20/16 17:48 ALT 23 U/L (12-78) D 09/20/16 17:48 Alkaline Phosphatase 95 U/L (45-117) 09/20/16 17:48 Total Protein 7.4 g/dl (6.4-8.2) 09/20/16 17:48 Albumin 3.5 g/dl (3.4-5.0) 09/20/16 17:48 Lipase 129 U/L (73-393) 09/20/16 17:48 CAT scan the abdomen pelvis demonstrates mildly prominent fluid and air filled small bowel loops noted in the mid and lower abdomen likely pulsatile ileus. There are a few mildly thickened small bowel loops noted in the right lower quadrant indicative of mild enteritis. There is a small extraluminal air bubbles noted in the right lower quadrant fat possibly postsurgical. No other acute findings. The patient has had numerous stooling here in the ED. However, the patient reports feeling significantly better and would like to go home. I paged Dr. Guerrier and awaiting phone call back. However, the patient requests to go home now and does not want to wait for phone call back. I stressed to the patient in to the family that they should follow-up with Dr. Guerrier call him Thursday. They're given a copy of the results. Return precautions were given. I suspect the patient has postoperative pain, ileus and enteritis. Supportive care. According to the family, the patient was only taking Tylenol and has been very mobile including performing chores and folding laundry. I instructed the patient to take it easy and to not overdo it. I discussed the physical exam findings, ancillary test results and final diagnoses with the patient. I answered all of the patient's questions. The patient was satisfied with the care received and felt comfortable with the discharge plan and treatment plan. The patient will call their primary care physician within 24 hours to arrange follow-up and will return to the Emergency Department with any new, persistant or worsening symptoms. <Serafin Garcia Filed: 09/20/16 22:17> - Medical Decision Making 09/20/16 21:54 First call placed to Dr. Guerrier at 21:55. Awaiting call back. Case discussed with Dr. Guerrier at 22:28. <Keith Clark - Last Filed: 09/20/16 22:30> *DC/Admit/Observation/Transfer - Discharge Dispostion Admit: No <Serafin Garcia - Last Filed: 09/20/16 22:17> - Attestations Scribe Attestion: 09/20/16 18:14 Documentation prepared by Keith Clark, acting as medical pathologist for Serafin Garcia MD. <Keith Clark - Last Filed: 09/20/16 22:30> Diagnosis at time of Disposition: Post-operative pain, Ileus, Enteritis - Discharge Dispostion Disposition: HOME Condition at time of disposition: Improved - Prescriptions Prescriptions: Mag Hydrox/Al Hydrox/Simeth [Mylanta Suspension -] 30 ml PO Q6H PRN #1 bottle PRN Reason: Abdominal Pain Ranitidine HCl [Zantac] 150 mg PO BID PRN #14 tablet PRN Reason: Abdominal Pain Ondansetron HCl [Zofran] 4 mg PO Q6H PRN #15 tablet PRN Reason: Nausea - Referrals Referrals: Umer Cadena MD [Primary Care Provider] - Israel Guerrier MD [Staff Physician] - - Patient Instructions Printed Discharge Instructions: DI for Postoperative Pain, DI for Diarrhea and Traveler's Diarrhea -- Adult Additional Instructions: Please take the copy of your results to your doctor. Call Dr. Guerrier this Thursday. Drink plenty of fluids and rest. Take the medications as prescribed. If you have controllable pain, please return to the ER for further evaluation.
[2016-09-20 18:29] LABS: ALBUMIN 3.5 g/dl (3.4-5.0); ANION GAP 12 (8-16); BILIRUBIN,TOTAL 0.5 mg/dL (0.2-1.0); CALCIUM 9.3 mg/dL (8.5-10.1); CO2 26 mmol/L (21-32); COCKROFT - GAULT 70.3715; CREATININE 0.7 mg/dL (0.55-1.02); GLUCOSE,RANDOM 96 mg/dL (74-106); SGOT/AST 43 U/L (15-37); SGPT/ALT 23 U/L (12-78)
[2016-09-20 18:30] LABS: ALK PHOS 95 U/L (45-117); TOT PROT 7.4 g/dl (6.4-8.2)
[2016-09-20 23:10] VITALS: BP 140/80; PULSE 89; TEMP 98
== END 2016-09-20 22:42 | disposition home or self-care (01) ==
LOC: JER 17:19
PROC: 3E033NZ Introduction of Analgesics, Hypnotics, Sedatives into Peripheral Vein, Percutaneous Approach (ICD-10-PCS; principal; 2016-09-20)
PROC: 3E033GC Introduction of Other Therapeutic Substance into Peripheral Vein, Percutaneous Approach (ICD-10-PCS; 2016-09-20)
DX: G89.18 Other acute postprocedural pain (principal); K52.9 Noninfective gastroenteritis and colitis, unspecified; K56.7 Ileus, unspecified; J45.909 Unspecified asthma, uncomplicated; E78.5 Hyperlipidemia, unspecified
CPT/HCPCS: 36415; 74177-TC; 80053; 83605; 83690; 85025; 99285-25

== ENCOUNTER 2016-09-22 04:18 | Emergency (ER) | payer OTHER ==
--- NOTE | 2016-09-22 04:32 | PDOC ---
History of Present Illness <Rajani Olson - Last Filed: 09/22/16 06:40> - General History Source: Patient Exam Limitations: No Limitations - History of Present Illness Initial Comments: 09/22/16 06:10 The patient is a 60 year old female, with a significant past medical history of asthma, hyperlipidemia, and a periumbilical hernia (s/p ventral/left periumbilical hernia repair [address] Guerrier), who presents to the emergency department complaining of bilateral rib pain. Patient states that the bilateral rib pain radiates to the back and progressively worsens before bedtime. Patient was seen in [facility] on 09/20 for post op visit, had a normal CT and states that the percocet is not alleviating the pain. Patient notes that she has been going between [facility] and [facility] with the same complaint. She denies abdominal pain. Allergies: Sulfa(Sulfonamide Antibiotics), ibuprofen, and aspirin Past Surgical History: Section, Paraumbilical hernia repair Social History: Non-smoker. Denies alcohol or drug use. PCP: Dr. Zurita GI: Dr. Cadena Surgeon: Dr. Guerrier <Yael Gardiner - Last Filed: 09/22/16 06:47> - General Stated Complaint: PAIN - SURGERY 1 WEEK AGO Time Seen by Provider: 09/22/16 04:30 Past History - Past Medical History Anemia: No Asthma: Yes Cancer: No Cardiac Disorders: No CVA: No COPD: No CHF: No Dementia: No Diabetes: No GI Disorders: No Disorders: No HTN: No Hypercholesterolemia: Yes Liver Disease: No Seizures: No Thyroid Disease: No - Surgical History Abdominal Surgery: Yes (HERNIA) Appendectomy: No Cardiac Surgery: No Cholecystectomy: No Lung Surgery: No Neurologic Surgery: No Orthopedic Surgery: No - Immunization History Immunization Up to Date: No - Psycho/Social/Smoking Cessation Hx Anxiety: No Suicidal Ideation: No Smoking History: Never smoked Have you smoked in the past 12 months: No Hx Alcohol Use: No Drug/Substance Use Hx: No Substance Use Type: None Hx Substance Use Treatment: No <Rajani Olson - Last Filed: 09/22/16 06:40> <Yael Gardiner - Last Filed: 09/22/16 06:47> - Past Medical History Allergies/Adverse Reactions: Allergies Allergy/AdvReac Type Severity Reaction Status Date / Time aspirin Allergy Difficulty Verified 09/22/16 04:34 Breathing ibuprofen Allergy Verified 09/22/16 04:34 Sulfa (Sulfonamide Allergy Difficulty Verified 09/22/16 04:34 Antibiotics) Breathing Home Medications: Ambulatory Orders Salmeterol/Fluticasone [Advair 500Mcg/50Mcg -] 1 inh PO BID 06/24/16 Montelukast Na [Singulair -] 10 mg PO HS tablet 06/26/16 Pantoprazole Sodium [Protonix -] 40 mg PO DAILY #30 tablet.ec 09/04/16 Docusate Sodium [Colace -] 100 mg PO TID #90 capsule 09/16/16 Oxycodone HCl/Acetaminophen [Percocet 5-325 mg Tablet] 1 tab PO Q6H #14 tab MDD 4 09/16/16 Mag Hydrox/Al Hydrox/Simeth [Mylanta Suspension -] 30 ml PO Q6H PRN #1 bottle Ondansetron HCl [Zofran] 4 mg PO Q6H PRN #15 tablet 09/20/16 Ranitidine HCl [Zantac] 150 mg PO BID PRN #14 tablet 09/20/16 Review of Systems - Review of Systems Able to Perform ROS?: Yes Comments:: 09/22/16 06:10 GENERAL/CONSTITUTIONAL: No fever or chills. No weakness. HEAD, EYES, EARS, NOSE AND THROAT: No change in vision. No ear pain or discharge. No sore throat. CARDIOVASCULAR: No chest pain or shortness of breath. RESPIRATORY: No cough, wheezing, or hemoptysis. GASTROINTESTINAL: No nausea, vomiting, diarrhea or constipation. GENITOURINARY: No dysuria, frequency, or change in urination. MUSCULOSKELETAL: +back pain, +bilateral rib pain. No joint or muscle swelling or pain. No neck. SKIN: No rash NEUROLOGIC: No headache, vertigo, loss of consciousness, or change in strength/ sensation. ENDOCRINE: No increased thirst. No abnormal weight change. HEMATOLOGIC/LYMPHATIC: No anemia, easy bleeding, or history of blood clots. ALLERGIC/IMMUNOLOGIC: No hives or skin allergy. <Yael Gardiner - Last Filed: 09/22/16 06:47> *Physical Exam - Vital Signs Last Vital Signs Temp Pulse Resp BP Pulse Ox 98.9 F 95 H 20 142/90 94 L 09/22/16 04:34 09/22/16 04:34 09/22/16 04:34 09/22/16 04:34 09/22/16 04:34 - Physical Exam Comments: 09/22/16 06:11 GENERAL: Afebrile. Awake, alert, and fully oriented, in no acute distress HEAD: No signs of trauma EYES: PERRLA, EOMI, sclera anicteric, conjunctiva clear ENT: Auricles normal inspection, hearing grossly normal, nares patent, oropharynx clear without exudates. Moist mucosa NECK: Normal ROM, supple, no lymphadenopathy, JVD, or masses LUNGS: Breath sounds equal, clear to auscultation bilaterally. No wheezes, and no crackles HEART: Regular rate and rhythm, normal S1 and S2, no murmurs, rubs or gallops ABDOMEN: Bharati well healing, non gassy abdomen. Soft, nontender, normoactive bowel sounds. No guarding, no rebound. No masses EXTREMITIES: Normal range of motion, no edema. No clubbing or cyanosis. No cords, erythema, or tenderness NEUROLOGICAL: Cranial nerves II through XII grossly intact. Normal speech, normal gait SKIN: Warm, Dry, normal turgor, no rashes or lesions noted. <Yael Gardiner - Last Filed: 09/22/16 06:47> ED Treatment Course - LABORATORY CBC & Chemistry Diagram: 09/22/16 04:40 09/22/16 04:40 <Rajani Olson - Last Filed: 09/22/16 06:40> - LABORATORY CBC & Chemistry Diagram: 09/22/16 04:40 09/22/16 04:40 - ADDITIONAL ORDERS Additional order review: Laboratory Results 09/22/16 04:40 Sodium 141 Potassium 3.5 Chloride 106 Carbon Dioxide 26 Anion Gap 9 BUN 9 D Creatinine 0.6 Creat Clearance w eGFR > 60 Random Glucose 100 Calcium 8.6 Total Bilirubin 0.3 D AST 28 D ALT 18 D Alkaline Phosphatase 87 Total Protein 6.9 Albumin 3.3 L 09/22/16 04:40 RBC 3.93 MCV 90.9 MCHC 33.3 RDW 14.2 MPV 9.0 Neutrophils % 61.7 D Lymphocytes % 21.2 D Monocytes % 8.2 Eosinophils % 8.0 H Basophils % 0.9 - Medications Given in the ED: ED Medications Discontinued Medications Generic Name Dose Route Start Last Admin Trade Name Vernell PRN Reason Stop Dose Admin Morphine Sulfate 2 mg 09/22/16 04:42 09/22/16 04:46 Morphine Injection - IVPUSH 09/22/16 04:43 2 mg ONCE ONE Administration Ondansetron HCl 4 mg 09/22/16 04:50 09/22/16 04:52 Zofran Injection IVPB 09/22/16 04:51 4 mg ONCE ONE Administration Sodium Chloride 250 ml 09/22/16 04:42 09/22/16 04:46 Normal Saline - IV 09/22/16 04:43 250 ml ONCE ONE Administration <Yeal Gardiner - Last Filed: 09/22/16 06:47> Medical Decision Making - Medical Decision Making 09/22/16 06:38 Pt comes with rib and back pain. SHe is post op. Labs normal, CXR normal, exam normal. SHe was hydrated and treated with zofran and morphine. She is feeling better. States that she feels despair at night when the pain comes on. She is living alone, as the rest of her family is visiting [place]. She is home alone. 09/22/16 06:39 Pt will be sent home. She is feeling better. She will take a cab. She has percocet and tylenol for pain. She has allergies to NSAIDS. <Rajani Olson - Last Filed: 09/22/16 06:40> *DC/Admit/Observation/Transfer - Discharge Dispostion Admit: No <Rajani Olson - Last Filed: 09/22/16 06:40> - Attestations Scribe Attestion: 09/22/16 06:11 Documentation prepared by JANA Yeager, acting as biomedical specialist for Rajani Olson MD. <Yael Gardiner - Last Filed: 09/22/16 06:47> Diagnosis at time of Disposition: Post-operative pain - Discharge Dispostion Disposition: HOME Condition at time of disposition: Stable - Patient Instructions Printed Discharge Instructions: DI for Acute Pain -- Adult, Understanding and Managing the Stress Response
[2016-09-22 04:39] VITALS: BMI 22.4
[2016-09-22] MEDS ORDERED: SODIUM CHLORIDE 0.9% 500 ML INFUS.BAG IV ONE (04:42)
[2016-09-22] MEDS ORDERED: morphine CARPU-JECT 2 MG/1 ML DISP.SYRIN IVPUSH ONE (04:42)
[2016-09-22] MEDS ORDERED: morphine CARPU-JECT 2 MG/1 ML DISP.SYRIN ONE (04:45)
[2016-09-22] MEDS ORDERED: ONDANSETRON 4 MG/2 ML VIAL ONE (04:48)
[2016-09-22] MEDS ORDERED: ONDANSETRON 4 MG/2 ML VIAL IVPB ONE (04:50)
[2016-09-22 04:54] LABS: BASOPHIL 0.9 % (0-2.0); MCH 30.3 pg (25.7-33.7); MCHC 33.3 g/dl (32.0-36.0); MEAN CELL VOLUME 90.9 fl (80-96); NEUTROPHILS 61.7 % (42.8-82.8); PLATELET COUNT 302 K/MM3 (134-434); RDW 14.2 % (11.6-15.6); WHITE BLOOD COUNT 11.1 K/mm3 (4.0-10.0)
[2016-09-22 05:28] LABS: ALBUMIN 3.3 g/dl (3.4-5.0); ALK PHOS 87 U/L (45-117); ANION GAP 9 (8-16); BILIRUBIN,TOTAL 0.3 mg/dL (0.2-1.0); CALCIUM 8.6 mg/dL (8.5-10.1); CO2 26 mmol/L (21-32); COCKROFT - GAULT 82.1015; CREATININE 0.6 mg/dL (0.55-1.02); GLUCOSE,RANDOM 100 mg/dL (74-106); SGOT/AST 28 U/L (15-37); SGPT/ALT 18 U/L (12-78); TOT PROT 6.9 g/dl (6.4-8.2)
[2016-09-22 06:40] VITALS: BP 113/68; PULSE 67; TEMP 97.8
== END 2016-09-22 07:01 | disposition home or self-care (01) ==
LOC: JER 04:18
PROC: 3E033NZ Introduction of Analgesics, Hypnotics, Sedatives into Peripheral Vein, Percutaneous Approach (ICD-10-PCS; principal; 2016-09-22)
PROC: 3E033GC Introduction of Other Therapeutic Substance into Peripheral Vein, Percutaneous Approach (ICD-10-PCS; 2016-09-22)
DX: G89.18 Other acute postprocedural pain (principal); J45.909 Unspecified asthma, uncomplicated; E78.5 Hyperlipidemia, unspecified
CPT/HCPCS: 36415; 71020-TC; 80053; 85025; 99283-25

== ENCOUNTER 2018-11-09 06:04 | Day surgery (SDC) | payer OTHER | END 2018-11-09 11:55 | disposition home or self-care (01) | LOC: JASU-SURG 06:04 ==

== ENCOUNTER 2019-03-09 19:36 | Emergency (ER) | payer OTHER ==
--- NOTE | 2019-03-09 19:42 | PDOC ---
Rapid Medical Evaluation Time Seen by Provider: 03/09/19 19:38 Medical Evaluation: Allergies Allergy/AdvReac Type Severity Reaction Status Date / Time aspirin Allergy Difficulty Verified 09/22/16 04:34 Breathing ibuprofen Allergy Verified 09/22/16 04:34 Sulfa (Sulfonamide Allergy Difficulty Verified 09/22/16 04:34 Antibiotics) Breathing 03/09/19 19:39 CC: rash to right chest- took gabapentin and flexeril PE: No stridor. OP- unremarkable. Resp even and unlabored. Lungs CTAB. wheals to right chest Orders: benadryl Patient will proceed to ER for further evaluation. Discharge Disposition - Diagnosis Rash - Referrals Referrals: Shamar Zurita [Primary Care Provider] - - Patient Instructions - Post Discharge Activity
[2019-03-09 20:07] VITALS: BP 130/70; PULSE 89; TEMP 98.2; BMI 24.5
--- NOTE | 2019-03-09 20:19 | PDOC ---
History of Present Illness - General Chief Complaint: Allergic Reaction Stated Complaint: ALLERGIC REACTION Time Seen by Provider: 03/09/19 19:38 - History of Present Illness Initial Comments: 03/09/19 20:17 63-year-old female presents for evaluation of rash which is been present for about 4 days. She states her symptoms started with pain on the right side of her neck which wraps around into her chest. 2 days ago the rash appeared and has become painful and itchy. Past History - Past Medical History Allergies/Adverse Reactions: Allergies Allergy/AdvReac Type Severity Reaction Status Date / Time aspirin Allergy Difficulty Verified 09/22/16 04:34 Breathing ibuprofen Allergy Verified 09/22/16 04:34 Sulfa (Sulfonamide Allergy Difficulty Verified 09/22/16 04:34 Antibiotics) Breathing Home Medications: Ambulatory Orders Salmeterol/Fluticasone [Advair 500Mcg/50Mcg -] 1 inh PO DAILY 06/24/16 Montelukast Na [Singulair -] 10 mg PO HS tablet 06/26/16 Pantoprazole Sodium [Protonix -] 40 mg PO DAILY #30 tablet.ec 09/04/16 Docusate Sodium [Colace -] 100 mg PO TID #90 capsule 09/16/16 Mag Hydrox/Al Hydrox/Simeth [Mylanta Suspension -] 30 ml PO Q6H PRN #1 bottle Acetaminophen W/ Codeine #3 [Tylenol # 3 -] 1 tab PO Q4H 11/08/18 Cetirizine HCl [Zyrtec -] 10 mg PO DAILY 11/08/18 Ranitidine HCl [Zantac] 150 mg PO PRN PRN 11/08/18 Simvastatin [Zocor] 10 mg PO DAILY 11/09/18 Acyclovir [Zovirax -] 200 mg PO 5XD #50 capsule 03/09/19 Acyclovir [Zovirax -] 200 mg PO 5XD #50 capsule 03/09/19 Methylprednisolone [Medrol Dose Haris] 4 mg PO ASDIR #21 tablet 03/09/19 Methylprednisolone [Medrol Dose Haris] 4 mg PO ASDIR #21 tablet 03/09/19 Anemia: No Asthma: Yes Cancer: No Cardiac Disorders: No CVA: No COPD: No CHF: No Dementia: No Diabetes: No GI Disorders: No Disorders: No HTN: No Hypercholesterolemia: Yes Liver Disease: No Seizures: No Thyroid Disease: No - Surgical History Abdominal Surgery: Yes (HERNIA) Appendectomy: No Cardiac Surgery: No Cholecystectomy: No Lung Surgery: No Neurologic Surgery: No Orthopedic Surgery: No - Immunization History Immunization Up to Date: No - Psycho Social/Smoking Cessation Hx Smoking History: Never smoked Have you smoked in the past 12 months: No Information on smoking cessation initiated: No Hx Alcohol Use: No Drug/Substance Use Hx: No Substance Use Type: None Hx Substance Use Treatment: No Review of Systems - Review of Systems Constitutional: No: Fever Integumentary: Yes: See HPI, Pruritus, Rash *Physical Exam - Vital Signs Last Vital Signs Temp Pulse Resp BP Pulse Ox 98.2 F 89 18 130/70 100 03/09/19 19:42 03/09/19 19:42 03/09/19 19:42 03/09/19 19:42 03/09/19 19:42 - Physical Exam Comments: 03/09/19 20:17 There is a vesicular rash from the midline of the skin overlying the cervical spine wrapping around anteriorly to the right chest. There are some raised wheals. Medical Decision Making - Medical Decision Making 03/09/19 20:18 Patient complains of pain with this rash. Shingles. Acyclovir and Medrol Dosepak follow-up with PCP Discharge - Discharge Information Problems reviewed: Yes Clinical Impression/Diagnosis: Rash, Shingles Condition: Stable Disposition: HOME - Admission No - Additional Discharge Information Prescriptions: Acyclovir [Zovirax -] 200 mg PO 5XD #50 capsule Acyclovir [Zovirax -] 200 mg PO 5XD #50 capsule Methylprednisolone [Medrol Dose Haris] 4 mg PO ASDIR #21 tablet Methylprednisolone [Medrol Dose Haris] 4 mg PO ASDIR #21 tablet - Follow up/Referral Referrals: Shamar Zurita [Primary Care Provider] - - Patient Discharge Instructions Patient Printed Discharge Instructions: Shingles Additional Instructions: Please take the medication as directed. Return to the emergency room for worsening symptoms. And without fail. Please follow-up with your primary care physician in 1 to 2 days for further evaluation and treatment options. - Post Discharge Activity
== END 2019-03-09 20:31 | disposition home or self-care (01) ==
LOC: JER 19:36
DX: B02.9 Zoster without complications (principal); E78.00 Pure hypercholesterolemia, unspecified; Z88.2 Allergy status to sulfonamides; Z88.6 Allergy status to analgesic agent
CPT/HCPCS: 99281-25

== ENCOUNTER 2019-05-31 17:53 | Emergency (ER) | payer OTHER ==
[2019-05-31 17:57] VITALS: BMI 24.6
--- NOTE | 2019-05-31 18:20 | PDOC ---
History of Present Illness - General Chief Complaint: Pain Stated Complaint: POSSIBLE SHINGLES - History of Present Illness Initial Comments: The pt is a 63F w/ a history of asthma, HLD, recent shingles (4 months ago) who presents for evaluation of another episode of shingles to the left back/flank and R facial/neck/shoulder swelling and increased pain. The pt has been taking acyclovir for the past 4 months and was changed to valcyclovir this past week with the onset of the new outbreak. She reports increased pain to light touch over the affected area as well as an increase of pain over the right shoulder and right neck. She notes 2 days of R neck and right lower facial swelling. She has never had this happen before. Denies history of HIV Pt has not been evaluated by heme/onc or ID Endorses increased pain over right shoulder, left back/flank, BLE swelling Denies fevers/chills, trouble breathing, vision changes, chest pain, abdominal pain, N/V/C/D, dysuria, hematuria PMH: shingles, asthma, HLD Meds: Valcyclovir, Neruontin 05/31/19 18:50 Past History - Past Medical History Allergies/Adverse Reactions: Allergies Allergy/AdvReac Type Severity Reaction Status Date / Time aspirin Allergy Difficulty Verified 05/31/19 17:57 Breathing ibuprofen Allergy Verified 05/31/19 17:57 Sulfa (Sulfonamide Allergy Difficulty Verified 05/31/19 17:57 Antibiotics) Breathing Home Medications: Ambulatory Orders Salmeterol/Fluticasone [Advair 500Mcg/50Mcg -] 1 inh PO DAILY 06/24/16 Montelukast Na [Singulair -] 10 mg PO HS tablet 06/26/16 Pantoprazole Sodium [Protonix -] 40 mg PO DAILY #30 tablet.ec 09/04/16 Docusate Sodium [Colace -] 100 mg PO TID #90 capsule 09/16/16 Mag Hydrox/Al Hydrox/Simeth [Mylanta Suspension -] 30 ml PO Q6H PRN #1 bottle Cetirizine HCl [Zyrtec -] 10 mg PO DAILY 11/08/18 Ranitidine HCl [Zantac] 150 mg PO PRN PRN 11/08/18 Simvastatin [Zocor] 10 mg PO DAILY 11/09/18 Acyclovir [Zovirax -] 200 mg PO 5XD #50 capsule 03/09/19 Acyclovir [Zovirax -] 200 mg PO 5XD #50 capsule 03/09/19 Methylprednisolone [Medrol Dose Haris] 4 mg PO ASDIR #21 tablet 03/09/19 Methylprednisolone [Medrol Dose Haris] 4 mg PO ASDIR #21 tablet 03/09/19 Acetaminophen W/ Codeine #3 [Tylenol # 3 -] 1 tab PO Q6H PRN #4 tablet MDD 4 tablet 05/31/19 Anemia: No Asthma: Yes Cancer: No Cardiac Disorders: No CVA: No COPD: No CHF: No Dementia: No Diabetes: No GI Disorders: No Disorders: No HTN: No Hypercholesterolemia: Yes Liver Disease: No Seizures: No Thyroid Disease: No - Surgical History Abdominal Surgery: Yes (HERNIA) Appendectomy: No Cardiac Surgery: No Cholecystectomy: No Lung Surgery: No Neurologic Surgery: No Orthopedic Surgery: No - Immunization History Immunization Up to Date: No - Psycho Social/Smoking Cessation Hx Smoking History: Never smoked Have you smoked in the past 12 months: No Hx Alcohol Use: No Drug/Substance Use Hx: No Substance Use Type: None Hx Substance Use Treatment: No Review of Systems - Review of Systems Able to Perform ROS?: Yes Comments:: GENERAL/CONSTITUTIONAL: No fever or chills. No weakness HEAD, EYES, EARS, NOSE AND THROAT: No change in vision. No change in hearing. No sore throat CARDIOVASCULAR: No chest pain or shortness of breath; +BLE swelling RESPIRATORY: Denies cough, hemoptysis GASTROINTESTINAL: No nausea, vomiting, diarrhea or constipation GENITOURINARY: No dysuria, frequency, or change in urination MUSCULOSKELETAL: No joint or muscle swelling or pain. No neck or back pain SKIN: per HPI NEUROLOGIC: +increased right shoulder and left flank pain; No headache, vertigo , loss of consciousness ENDOCRINE: No increased thirst. No abnormal weight change HEMATOLOGIC/LYMPHATIC: No anemia, easy bleeding, or history of blood clots ALLERGIC/IMMUNOLOGIC: +asthma; shingles 05/31/19 18:19 Is the patient limited Portuguese proficient: No *Physical Exam - Vital Signs Last Vital Signs Temp Pulse Resp BP Pulse Ox 98.2 F 100 H 18 136/83 99 05/31/19 17:54 05/31/19 17:54 05/31/19 17:54 05/31/19 17:54 05/31/19 17:54 - Physical Exam GENERAL: Awake, alert, and oriented to person/place/time, in no acute distress HEAD: R facial edema; R neck edema EYES: PERRLA, EOMI, sclera anicteric, conjunctiva clear ENT: Hearing grossly normal, nares patent, oropharynx clear without exudates. Moist mucosa LUNGS: No distress, speaks in full sentences, clear to auscultation bilaterally HEART: Regular rate and rhythm, normal S1 and S2, no murmurs appreciated, peripheral pulses normal and equal bilaterally ABDOMEN: Soft, nontender, normoactive bowel sounds. No guarding, no rebound EXTREMITIES: BLE edema to knee NEUROLOGICAL: Cranial nerves II through XII grossly intact. Normal speech. 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 Small hiatal hernia. Left lower lobe and right middle lobe pulmonary nodule. 05/31/19 23:22 Medical Decision Making - Medical Decision Making The pt is a 63F w/ a history of asthma, HLD, recent shingles (4 months ago) who presents for evaluation of another episode of shingles to the left back/flank and R facial/neck/shoulder swelling and increased pain. ED Course Labs sent CTA neck and chest ECG Pt discussed w/ Dr. Jacobo, will screen for HIV, it pt requires admission, will give Acyclovir 5mg/kg Q8H 05/31/19 19:03 No leukocytosis, no leukopenia No anemia No thrombocytopenia 05/31/19 19:24 Lytes unremarkable No HELGA LFTs unremarkable TSH wnl Tylenol non-toxic BNP wnl 05/31/19 21:24 ECG w/ NSR; HR 80; QTc 426; boarderline axis deviation (left), no ANDREW 05/31/19 21:43 CTA neck/chest/abdomen w/o acute findings Incidental findings noted and pt made aware of pulmonary nodules and need for f/ u Plan for D/C w/ PCP f/u Discharge instructions and return precautions given Patient in agreement and verbalized understanding Dispo: Home 05/31/19 23:23 Discharge - Discharge Information Problems reviewed: Yes Clinical Impression/Diagnosis: Facial swelling Shingles Qualifiers: Herpes zoster complications: without complications Qualified Code(s): B02.9 - Zoster without complications Condition: Stable Disposition: HOME - Admission No - Additional Discharge Information Prescriptions: Acetaminophen W/ Codeine #3 [Tylenol # 3 -] 1 tab PO Q6H PRN #4 tablet MDD 4 tablet PRN Reason: Pain - Follow up/Referral Referrals: Shamar Zurita [Primary Care Provider] - - Patient Discharge Instructions Patient Printed Discharge Instructions: DI for Shingles Additional Instructions: You were seen for evaluation of shingles and facial swelling. Your labs were unremarkable and your imaging results were discussed with your and a copy provided. Follow up with your primary care provider this week. Review the handout provided at discharge. Return to the Emergency Department if you develop fevers, chest pain, trouble breathing, worsening pain, change in sensation, worsening symptoms, or any new/ concerning symptoms. - Post Discharge Activity
[2019-05-31] MEDS ORDERED: ACETAMINOPHEN WITH CODEINE 300MG/30MG TABLET PO ONE (18:48)
--- NOTE | 2019-05-31 18:52 | PDOC ---
Documentation entered by Kenia Harris SCRIBE, acting as scribe for Belkis Muñoz DO. Belkis Muñoz DO: This documentation has been prepared by the Kimberly jarrett Joy, SCRIBE, under my direction and personally reviewed by me in its entirety. I confirm that the documentation accurately reflects all work, treatment, procedures, and medical decision making performed by me. Attending Attestation - Resident Resident Name: KatyceliJefferson - ED Attending Attestation I have performed the following: I have examined & evaluated the patient, The case was reviewed & discussed with the resident, I agree w/resident's findings & plan, Exceptions are as noted - HPI HPI: 05/31/19 18:53 The patient is a 63 year old female with significant past medical history of asthma, hyperlipidemia, and periumbilical hernia (s/p ventral/left periumbilical hernia repair, Dr. Guerrier), recurrent shingles (recent 4 months ago , left lower back), who presents to the ED today with increased pain along shoulder and possible new outbreak of shingles. Since Thursday (05/28/19) patient has swelling on right shoulder, right clavicle, right eye orbital, and both legs. Patient states she never had right orbital swelling before, and that it started yesterday. Patient will see her PCP on the 06/02/19, and was recently restarted on valtrex due to her active shingles. The patient denies hx of heart failure. Denies any new detergent use. Allergies: Aspirin, Ibuprofen, Sulfa (Sulfonamide antibiotics). PCP: Dr. Shamar Zurita - Physicial Exam PE: 05/31/19 18:48 Gen: aaox3, tearful, uncomfortable heent: PERRL, EOMI, R facial swelling, swelling under R eye neck: supple, no jvd, no bruits but has R neck soft tissue swelling and pain, old scars to R upper back around to the neck and upper chest heart; +s1s2 reg lungs: cta b/l, L upper back with open lesions from active shingles, R chest with dilated veins only on the R abd: soft, nt/nd +bs ext: 2+ pitting edema LE b/l neuro: cn ii-xii grossly intact, no focal deficits - Medical Decision Making 05/31/19 18:51 a/p: 63yo female with recurrent shingles with R sided swelling and worsening shingles pain -new lesions L back and started on valtrex -now with R sided swelling today - R face, R neck, R chest -pt with neuropathic pain -will send labs, ct neck and chest to eval svc syndrome or obstructive pathology -will send HIV -resident discussed the case with Dr. Jacobo who will eval the patient -will monitor and reassess -will give tylenol #3 for pain
[2019-05-31 19:10] LABS: BASO % 1.2 % (0-2.0); EOS % 3.2 % (0-4.5); HEMATOCRIT 35.6 % (32.4-45.2); HEMOGLOBIN 11.7 GM/dL (10.7-15.3); LYMPH % 30.5 % (8-40); MCH 32.7 pg (25.7-33.7); MCHC 32.9 g/dl (32.0-36.0); MEAN CELL VOLUME 99.3 fl (80-96); MEAN PLT VOLUME 9.1 fl (7.5-11.1); NEUT % 52.1 % (42.8-82.8); PLATELET COUNT 312 K/MM3 (134-434); RBC 3.59 M/mm3 (3.60-5.2); RDW 16.4 % (11.6-15.6); WHITE BLOOD COUNT 6.1 K/mm3 (4.0-10.0)
[2019-05-31] MEDS ORDERED: ACETAMINOPHEN WITH CODEINE 300MG/30MG TABLET ONE (19:14)
[2019-05-31 19:37] LABS: URINE APPEARANCE CLEAR; URINE BILIRUBIN NEGATIVE (NEGATIVE); URINE COLOR YELLOW; URINE GLUCOSE (UA) NEGATIVE (NEGATIVE); URINE KETONE NEGATIVE (NEGATIVE); URINE LEUK ESTERASE NEGATIVE (NEGATIVE); URINE NITRITE NEGATIVE (NEGATIVE); URINE PROTEIN NEGATIVE (NEGATIVE); URINE UROBILINOGEN 0.2 mg/dL (0.2-1.0)
[2019-05-31 19:48] LABS: INR 0.94 (0.83-1.09); PROTHROMBIN TIME (PATIENT) 11.1 SEC (9.7-13.0)
[2019-05-31 19:50] LABS: ACTIVATED PTT 28.8 SECONDS (25.2-36.5)
[2019-05-31 20:44] LABS: ALBUMIN 3.1 g/dl (3.4-5.0); ALK PHOS 68 U/L (45-117); ANION GAP 6 MMOL/L (8-16); BILIRUBIN,TOTAL 0.1 mg/dL (0.2-1); CALCIUM 8.2 mg/dL (8.5-10.1); CHLORIDE 111 mmol/L (98-107); CO2 26 mmol/L (21-32); CREATININE 0.8 mg/dL (0.55-1.3); GLUCOSE,RANDOM 96 mg/dL (74-106); MAGNESIUM 2.2 mg/dL (1.8-2.4); N-TERMINAL BNP 42.8 pg/ml (5-125); POTASSIUM 3.6 mmol/L (3.5-5.1); SGOT/AST 22 U/L (15-37); SGPT/ALT 15 U/L (13-61); SODIUM 143 mmol/L (136-145); TOT PROT 5.9 g/dl (6.4-8.2)
[2019-05-31] MEDS ORDERED: oxyCODONE HCL 5 MG TABLET PO ONE (20:44)
[2019-05-31] MEDS ORDERED: oxyCODONE HCL 5 MG TABLET ONE (20:46)
[2019-05-31] MEDS ORDERED: PREGABALIN 100 MG CAPSULE PO ONE (21:52)
[2019-05-31] MEDS ORDERED: PREGABALIN 100 MG CAPSULE ONE (22:12)
[2019-05-31 22:39] VITALS: BP 128/69; PULSE 73; TEMP 98.1
--- NOTE | 2019-06-02 05:12 | EKG ---
Test Reason : Blood Pressure : / mmHG Vent. Rate : 080 BPM Atrial Rate : 080 BPM P-R Int : 156 ms QRS Dur : 086 ms QT Int : 370 ms P-R-T Axes : 045 -02 034 degrees QTc Int : 426 ms NORMAL SINUS RHYTHM NORMAL ECG WHEN COMPARED WITH ECG OF 13-SEP-2016 08:19, NO SIGNIFICANT CHANGE WAS FOUND Confirmed by ELOISE FELDMAN MD ([id number]) on 06/02/2019 5:12:36 AM Referred By: Confirmed By:ELOISE FELDMAN MD
== END 2019-05-31 23:35 | disposition home or self-care (01) ==
LOC: JER 17:53
DX: B02.9 Zoster without complications (principal); J45.909 Unspecified asthma, uncomplicated; E78.5 Hyperlipidemia, unspecified; R60.0 Localized edema; Z88.6 Allergy status to analgesic agent; Z88.2 Allergy status to sulfonamides
CPT/HCPCS: 36415; 70498-TC; 71275-TC; 74175-TC; 80053; 80307; 81003; 82550; 83605; 83735; 83880; 84443; 84484; 85025; 85610; 85730; 87389; 93005; 93010; 99283-25; Q9967

== ENCOUNTER 2020-10-05 05:52 | Day surgery (SDC) | payer OTHER ==
[2020-10-01 15:37] VITALS: BMI 26.9
[2020-10-05] MEDS ORDERED: ACETAMINOPHEN 325 MG TABLET (FP) PO PRN (07:19)
[2020-10-05] MEDS ORDERED: oxyCODONE HCL 5 MG TABLET PO PRN ×4 (07:19→09:13)
[2020-10-05] MEDS ORDERED: BUPIVACAINE HCL/EPINEPHRINE/PF 30 ML VIAL IJ ONE ×2 (07:24→07:58)
[2020-10-05] MEDS ORDERED: PROPOFOL 20 ML ONE ×2 (07:33)
[2020-10-05] MEDS ORDERED: SUCCINYLCHOLINE CHLORIDE 200 MG/10 ML SYRINGE ONE (07:33)
[2020-10-05] MEDS ORDERED: ePHEDrine SULFATE 50 MG/1 ML AMPULE ONE (07:48)
[2020-10-05] MEDS ORDERED: SEVOFLURANE 250 ML BTL ONE (07:55)
[2020-10-05] MEDS ORDERED: DEXAMETHASONE SOD PHOSPHATE 4 MG/1 ML VIAL ONE (08:08)
[2020-10-05] MEDS ORDERED: ONDANSETRON 4 MG/2 ML VIAL ONE (08:08)
[2020-10-05] MEDS ORDERED: ceFAZolin SODIUM 1 GM VIAL ONE (08:08)
[2020-10-05] MEDS ORDERED: LIDOCAINE HCL/PF 2% SDV 5ML VIAL ONE (08:08)
[2020-10-05] MEDS ORDERED: LIDOCAINE HCL 2% JELLY (5 ML/TUBE) ONE (08:08)
[2020-10-05] MEDS ORDERED: ONDANSETRON 4 MG/2 ML VIAL IVPUSH PRN (08:44)
[2020-10-05] MEDS ORDERED: PROMETHAZINE HCL 25 MG/1 ML VIAL IVPUSH PRN (08:44)
[2020-10-05] MEDS ORDERED: oxyCODONE HCL 5 MG TABLET ONE (09:23)
[2020-10-05 11:34] VITALS: BP 131/64; PULSE 72; TEMP 97.6
== END 2020-10-05 10:45 | disposition home or self-care (01) ==
LOC: FASU 05:52
PROVIDERS: ATTEND Orthopaedic Surgery
PROC: 0SBC4ZZ Excision of Right Knee Joint, Percutaneous Endoscopic Approach (ICD-10-PCS; 2020-10-05)
PROC: 0SBC4ZZ Excision of Right Knee Joint, Percutaneous Endoscopic Approach (ICD-10-PCS; 2020-10-05)
PROC: 0SBC4ZZ Excision of Right Knee Joint, Percutaneous Endoscopic Approach (ICD-10-PCS; principal; 2020-10-05 07:58)
PROC: 0SBC4ZZ Excision of Right Knee Joint, Percutaneous Endoscopic Approach (ICD-10-PCS; 2020-10-05 07:58)
DX: S83.241A Other tear of medial meniscus, current injury, right knee, initial encounter (principal); M22.41 Chondromalacia patellae, right knee; M17.11 Unilateral primary osteoarthritis, right knee; M65.861 Other synovitis and tenosynovitis, right lower leg; M94.261 Chondromalacia, right knee; X58.XXXA Exposure to other specified factors, initial encounter; Y92.9 Unspecified place or not applicable; Y93.9 Activity, unspecified
CPT/HCPCS: 88304-TC; 94760

== ENCOUNTER 2021-10-17 08:59 | Observation (INO) | payer OTHER ==
[2021-09-18 14:49] VITALS: BMI 26.6
[2021-10-21] MEDS ORDERED: VANCOMYCIN 1,000 MG VIAL (RESTRICTED TO ID ONLY) ONE (07:20)
[2021-10-21] MEDS ORDERED: PROPOFOL 20 ML ONE ×2 (07:21)
[2021-10-21] MEDS ORDERED: MIDAZOLAM HCL 2 MG/2 ML SINGLE DOSE VIAL ONE ×2 (07:22)
[2021-10-21] MEDS ORDERED: BUPIVACAINE HCL 200 ML ONE (07:43)
[2021-10-21] MEDS ORDERED: BUPIVACAINE HCL/PF 2.5 MG/ML - 30 ML VIAL IJ ONE ×2 (07:48→08:00)
[2021-10-21] MEDS ORDERED: BUPIVACAINE HCL/PF 0.5% (5MG/ML) 10 ML VIAL ONE (07:48)
[2021-10-21] MEDS ORDERED: CEFAZOLIN 1 GM/D5W 1 GM/50 ML BAG IVPB ONE (08:00)
[2021-10-21] MEDS ORDERED: BUPIVACAINE HCL/PF 0.25% (2.5MG/ML) 10 ML VIAL ONE (08:00)
[2021-10-21] MEDS ORDERED: oxyCODONE HCL 5 MG TABLET PO PRN ×2 (11:34→16:22)
[2021-10-21] MEDS ORDERED: MAG HYDROX/AL HYDROX/SIMETH 30 ML UNIT-DOSE CUP PO PRN (11:38)
[2021-10-21] MEDS ORDERED: ONDANSETRON 4 MG/2 ML VIAL IVPUSH PRN (11:38)
[2021-10-21] MEDS ORDERED: ALBUTEROL SO4 HFA INHALER IH PRN (11:44)
[2021-10-21] MEDS ORDERED: LACTATED RINGERS SOLUTION 1,000 ML IV SCH (11:45)
[2021-10-21] MEDS ORDERED: PATIENT'S OWN MEDICATION (NON-FORMULARY) (Salmeterol/Fluticasone [Advair 500mcg/50mcg -] 1 PO SCH (12:00)
[2021-10-21] MEDS: ACETAMINOPHEN 1000 MG/100 ML BAG IVPB ONE ×2 (12:15→20:10)
[2021-10-21] MEDS ORDERED: ceFAZolin SODIUM 1 GM VIAL ONE ×2 (15:14→20:42)
[2021-10-21] MEDS ORDERED: DEXTROSE 5%-WATER - 50 ML IVPB ONE ×2 (15:15→20:43)
[2021-10-21] MEDS: CEFAZOLIN 1 GM in DEXTROSE 5%-WATER - 50 ML IVPB SCH ×2 (15:17→21:19)
[2021-10-21] MEDS: LACTATED RINGERS SOLUTION 1,000 ML IV SCH (15:18)
[2021-10-21] MEDS ORDERED: oxyCODONE HCL 5 MG TABLET ONE (16:27)
[2021-10-21] MEDS: oxyCODONE HCL 5 MG TABLET PO PRN (17:00)
[2021-10-21] MEDS: ACETAMINOPHEN 500 MG TABLET (FP) PO SCH (17:52)
[2021-10-21] MEDS: VANCOMYCIN 1 GM in D5W (PRE-DOCKED) 1,000 MG/250 ML IVPB SCH (20:07)
[2021-10-21] MEDS ORDERED: PREGABALIN 50 MG CAPSULE ONE (21:26)
[2021-10-21] MEDS ORDERED: PREGABALIN 100 MG CAPSULE ONE (21:26)
[2021-10-21] MEDS: PREGABALIN 100 MG, PREGABALIN 50 MG PO SCH (21:32)
[2021-10-21] MEDS: SENNOSIDES/DOCUSATE COMBO (SENNA PLUS) TABLET (UD) PO SCH (21:33)
[2021-10-21] MEDS ORDERED: PREGABALIN 75 MG CAPSULE PO SCH ×2 (22:00)
[2021-10-21] MEDS ORDERED: GABAPENTIN 300 MG CAPSULE PO SCH (22:00)
[2021-10-21] MEDS: BUDESONIDE/FORMETEROL FUMARATE 160/4.5 mcg INHALER IH SCH (22:03)
[2021-10-22] MEDS: ACETAMINOPHEN 500 MG TABLET (FP) PO SCH ×4 (00:43→17:32)
[2021-10-22] MEDS ORDERED: ceFAZolin SODIUM 1 GM VIAL ONE ×2 (02:22→16:50)
[2021-10-22] MEDS ORDERED: DEXTROSE 5%-WATER - 50 ML IVPB ONE ×2 (02:23→16:50)
[2021-10-22] MEDS: oxyCODONE HCL 5 MG TABLET PO PRN ×3 (05:29→16:03)
[2021-10-22 08:07] LABS: HEMATOCRIT 32.4 % (32.4-45.2); HEMOGLOBIN 10.9 G/dL (10.7-15.3); MCH 31.8 pg (25.7-33.7); MCHC 33.6 g/dl (32.0-36.0); MEAN CELL VOLUME 94.7 fl (80-96); MEAN PLT VOLUME 10.5 fl (7.5-11.1); PLATELET COUNT 185.1 10^3/uL (134-434); RBC 3.42 10^6/uL (3.60-5.2); RDW 13.9 % (11.6-15.6); WHITE BLOOD COUNT 14.2 10^3/uL (4.0-10.8)
[2021-10-22 08:19] LABS: CALCIUM 8.7 mg/dl (8.5-10); CREATININE 0.8 mg/dl (0.55-1.3)
[2021-10-22] MEDS: CEFAZOLIN 1 GM in DEXTROSE 5%-WATER - 50 ML IVPB SCH (09:31)
[2021-10-22] MEDS ORDERED: PREGABALIN 100 MG CAPSULE ONE ×2 (09:38→21:29)
[2021-10-22] MEDS ORDERED: PREGABALIN 50 MG CAPSULE ONE ×2 (09:38→21:29)
[2021-10-22] MEDS: SENNOSIDES/DOCUSATE COMBO (SENNA PLUS) TABLET (UD) PO SCH ×2 (09:40→21:47)
[2021-10-22] MEDS: LORATADINE 10 MG TABLET PO SCH (09:40)
[2021-10-22] MEDS: ENOXAPARIN NA (PORCINE) 30 MG/0.3 ML DISP.SYRIN SQ SCH ×2 (09:40→21:49)
[2021-10-22] MEDS: MONTELUKAST NA 10 MG TABLET PO SCH (09:40)
[2021-10-22] MEDS: MULTIVITAMINS (DAILY MVI) TABLET (FP) PO SCH (09:40)
[2021-10-22] MEDS: PREGABALIN 100 MG, PREGABALIN 50 MG PO SCH ×2 (09:40→21:48)
[2021-10-22] MEDS: PANTOPRAZOLE 40 MG TABLET PO SCH (09:40)
[2021-10-22] MEDS: BUDESONIDE/FORMETEROL FUMARATE 160/4.5 mcg INHALER IH SCH ×2 (09:45→21:48)
[2021-10-22] MEDS ORDERED: PATIENT'S OWN MEDICATION (NON-FORMULARY) (Pravastatin Sodium [Pravachol] 40 MG Tablet) PO SCH (10:00)
[2021-10-22] MEDS ORDERED: PATIENT'S OWN MEDICATION (NON-FORMULARY) (Cetirizine Hcl [Zyrtec] 10 MG Tablet) PO SCH (10:00)
[2021-10-22] MEDS: LACTATED RINGERS SOLUTION 1,000 ML IV SCH (15:12)
[2021-10-22] MEDS ORDERED: CEFAZOLIN 1 GM in DEXTROSE 5%-WATER - 50 ML IVPB ONE (16:26)
[2021-10-22] MEDS: ATORVASTATIN CA 10 MG TABLET (FP) PO SCH (21:48)
[2021-10-22] MEDS ORDERED: LORazepam 2 MG TABLET PO ONE (22:50)
[2021-10-22] MEDS ORDERED: LORazepam 1 MG TABLET PO ONE (23:00)
[2021-10-23] MEDS: ACETAMINOPHEN 500 MG TABLET (FP) PO SCH ×4 (00:44→17:12)
[2021-10-23 08:30] LABS: CALCIUM 8.6 mg/dl (8.5-10); CREATININE 0.8 mg/dl (0.55-1.3); HEMOGLOBIN 10.1 G/dL (10.7-15.3); MCH 31.5 pg (25.7-33.7); MCHC 33.6 g/dl (32.0-36.0); MEAN CELL VOLUME 93.7 fl (80-96); MEAN PLT VOLUME 10.7 fl (7.5-11.1); PLATELET COUNT 177.5 10^3/uL (134-434); RDW 14.8 % (11.6-15.6); WHITE BLOOD COUNT 14.1 10^3/uL (4.0-10.8)
[2021-10-23] MEDS: oxyCODONE HCL 5 MG TABLET PO PRN (08:32)
[2021-10-23] MEDS ORDERED: PREGABALIN 100 MG CAPSULE ONE (09:17)
[2021-10-23] MEDS ORDERED: PREGABALIN 50 MG CAPSULE ONE (09:17)
[2021-10-23] MEDS: PREGABALIN 100 MG, PREGABALIN 50 MG PO SCH ×2 (09:19→21:43)
[2021-10-23] MEDS: PANTOPRAZOLE 40 MG TABLET PO SCH (09:19)
[2021-10-23] MEDS: LORATADINE 10 MG TABLET PO SCH (09:20)
[2021-10-23] MEDS: MULTIVITAMINS (DAILY MVI) TABLET (FP) PO SCH (09:20)
[2021-10-23] MEDS: SENNOSIDES/DOCUSATE COMBO (SENNA PLUS) TABLET (UD) PO SCH ×2 (09:20→21:42)
[2021-10-23] MEDS: MONTELUKAST NA 10 MG TABLET PO SCH (09:20)
[2021-10-23] MEDS: ENOXAPARIN NA (PORCINE) 30 MG/0.3 ML DISP.SYRIN SQ SCH ×2 (09:20→21:43)
[2021-10-23] MEDS: BUDESONIDE/FORMETEROL FUMARATE 160/4.5 mcg INHALER IH SCH ×2 (09:24→21:49)
[2021-10-23] MEDS ORDERED: AZITHROMYCIN IVPB 500 MG in DEXTROSE 5%-WATER - 250 ML IVPB ONE (11:15)
[2021-10-23] MEDS ORDERED: DEXTROSE 5%-WATER - 50 ML IVPB ONE (11:27)
[2021-10-23] MEDS ORDERED: cefTRIAXone SODIUM 1 GM VIAL ONE (11:27)
[2021-10-23] MEDS: CEFTRIAXONE 1 GM in DEXTROSE 5%-WATER - 50 ML IVPB SCH (11:30)
[2021-10-23] MEDS: ATORVASTATIN CA 10 MG TABLET (FP) PO SCH (21:42)
[2021-10-24] MEDS: ACETAMINOPHEN 500 MG TABLET (FP) PO SCH ×2 (06:33→17:19)
[2021-10-24] MEDS: oxyCODONE HCL 5 MG TABLET PO PRN ×2 (08:04→17:18)
[2021-10-24 08:09] LABS: HEMATOCRIT 28.1 % (32.4-45.2); HEMOGLOBIN 9.7 G/dL (10.7-15.3); MCH 32.8 pg (25.7-33.7); MCHC 34.5 g/dl (32.0-36.0); MEAN PLT VOLUME 10.4 fl (7.5-11.1); RBC 2.96 10^6/uL (3.60-5.2); RDW 14.7 % (11.6-15.6); WHITE BLOOD COUNT 12.7 10^3/uL (4.0-10.8)
[2021-10-24] MEDS ORDERED: PREGABALIN 50 MG CAPSULE ONE ×2 (09:19→22:11)
[2021-10-24] MEDS ORDERED: PREGABALIN 100 MG CAPSULE ONE ×2 (09:19→22:12)
[2021-10-24] MEDS: PANTOPRAZOLE 40 MG TABLET PO SCH (09:41)
[2021-10-24] MEDS: SENNOSIDES/DOCUSATE COMBO (SENNA PLUS) TABLET (UD) PO SCH ×2 (09:41→22:46)
[2021-10-24] MEDS: ENOXAPARIN NA (PORCINE) 30 MG/0.3 ML DISP.SYRIN SQ SCH ×2 (09:41→22:46)
[2021-10-24] MEDS: MULTIVITAMINS (DAILY MVI) TABLET (FP) PO SCH (09:41)
[2021-10-24] MEDS: LORATADINE 10 MG TABLET PO SCH (09:41)
[2021-10-24] MEDS: PREGABALIN 100 MG, PREGABALIN 50 MG PO SCH ×2 (09:42→22:46)
[2021-10-24] MEDS: MONTELUKAST NA 10 MG TABLET PO SCH (09:42)
[2021-10-24] MEDS: CEFTRIAXONE 1 GM in DEXTROSE 5%-WATER - 50 ML IVPB SCH (09:43)
[2021-10-24] MEDS: BUDESONIDE/FORMETEROL FUMARATE 160/4.5 mcg INHALER IH SCH ×2 (09:47→22:45)
[2021-10-24] MEDS ORDERED: LORazepam 0.5 MG TABLET PO ONE (11:45)
[2021-10-24] MEDS ORDERED: AZITHROMYCIN IVPB 250 MG in DEXTROSE 5%-WATER - 250 ML IVPB SCH (12:00)
[2021-10-24] MEDS: ATORVASTATIN CA 10 MG TABLET (FP) PO SCH (22:46)
[2021-10-25] MEDS: oxyCODONE HCL 5 MG TABLET PO PRN ×3 (03:43→14:14)
[2021-10-25] MEDS ORDERED: LORazepam 0.5 MG TABLET PO ONE (03:49)
[2021-10-25] MEDS ORDERED: MELATONIN 5 MG TABLETS PO PRN (03:50)
[2021-10-25 07:22] LABS: BASO % 0.6 % (0-2.0); EOS % 6.7 % (0-4.5); HEMATOCRIT 27.8 % (32.4-45.2); HEMOGLOBIN 9.4 GM/dL (10.7-15.3); LYMPH % 16.7 % (8-40); MCH 31.6 pg (25.7-33.7); MCHC 33.9 g/dl (32.0-36.0); MEAN CELL VOLUME 93.1 fl (80-96); MEAN PLT VOLUME 9.5 fl (7.5-11.1); MONO % 9.4 % (3.8-10.2); NEUT % 66.6 % (42.8-82.8); PLATELET COUNT 211 10^3/uL (134-434); RBC 2.99 M/mm3 (3.60-5.2); RDW 14.1 % (11.6-15.6); WHITE BLOOD COUNT 9.3 K/mm3 (4.0-10.0)
[2021-10-25 07:54] LABS: ALBUMIN 2.3 g/dl (3.4-5.0); CALCIUM 8.4 mg/dL (8.5-10.1)
[2021-10-25 07:57] LABS: CREATININE 0.6 mg/dL (0.55-1.3)
[2021-10-25 07:59] LABS: BILIRUBIN,TOTAL 0.6 mg/dL (0.2-1); TOT PROT 5.8 g/dl (6.4-8.2)
[2021-10-25] MEDS ORDERED: DOCUSATE SODIUM 100 MG CAPSULE (FP) PO ONE (08:53)
[2021-10-25] MEDS ORDERED: POTASSIUM CHLORIDE TABS 20 MEQ TABLET.ER (FP) PO ONE (08:56)
[2021-10-25] MEDS ORDERED: PREGABALIN 50 MG CAPSULE ONE (09:14)
[2021-10-25] MEDS ORDERED: PREGABALIN 100 MG CAPSULE ONE (09:15)
[2021-10-25] MEDS: ENOXAPARIN NA (PORCINE) 30 MG/0.3 ML DISP.SYRIN SQ SCH (09:25)
[2021-10-25] MEDS: PREGABALIN 100 MG, PREGABALIN 50 MG PO SCH (09:26)
[2021-10-25] MEDS: MONTELUKAST NA 10 MG TABLET PO SCH (09:26)
[2021-10-25] MEDS: MULTIVITAMINS (DAILY MVI) TABLET (FP) PO SCH (09:27)
[2021-10-25] MEDS: PANTOPRAZOLE 40 MG TABLET PO SCH (09:27)
[2021-10-25] MEDS: SENNOSIDES/DOCUSATE COMBO (SENNA PLUS) TABLET (UD) PO SCH (09:27)
[2021-10-25] MEDS: LORATADINE 10 MG TABLET PO SCH (09:27)
[2021-10-25] MEDS ORDERED: AZITHROMYCIN IVPB 250 MG in DEXTROSE 5%-WATER - 250 ML IVPB SCH (10:00)
[2021-10-25] MEDS ORDERED: DEXAMETHASONE 4 MG TABLET (FP) PO SCH (10:00)
[2021-10-25] MEDS ORDERED: POLYETHYLENE GLYCOL (HEALTHYLAX) 3350 17 GM PACKET PO SCH (10:00)
[2021-10-25] MEDS: BUDESONIDE/FORMETEROL FUMARATE 160/4.5 mcg INHALER IH SCH (10:23)
[2021-10-25 14:16] LABS: MAGNESIUM 2.2 mg/dL (1.8-2.4)
[2021-10-25 15:27] VITALS: BP 128/72; PULSE 98; TEMP 99
[2021-10-25] MEDS ORDERED: AMOX TR/POT CLAV 500MG/125MG TABLETS (FP) PO SCH (17:30)
[2021-10-26 00:07] LABS: SARS-CoV-2 NAA Not Detected (Not Detected)
== END 2021-10-25 15:48 ==
LOC: FASUSAT 10-21 06:04 → SUATTDRO 10-21 06:04 → EDSTATUS 10-21 07:30 → FM/S 10-21 13:27 → FASUSAT 10-21 13:27 → FM/S 10-21 13:32 → FASUSAT 10-24 20:00 → INTOOBSV 10-24 21:35 → UNDOADMOB 10-24 21:35 → J4S 10-24 21:35
PROVIDERS: ADMIT Hospitalist; ATTEND Nurse Practitioner Acute Care
PROC: 3E03329 Introduction of Other Anti-infective into Peripheral Vein, Percutaneous Approach (ICD-10-PCS; principal; 2021-10-25)
PROC: 3E023GC Introduction of Other Therapeutic Substance into Muscle, Percutaneous Approach (ICD-10-PCS; 2021-10-25)
PROC: 0SRC0J9 Replacement of Right Knee Joint with Synthetic Substitute, Cemented, Open Approach (ICD-10-PCS; 2021-10-25)
PROC: 8E0YXBZ Computer Assisted Procedure of Lower Extremity (ICD-10-PCS; 2021-10-25)
PROC: 3E0R3BZ Introduction of Anesthetic Agent into Spinal Canal, Percutaneous Approach (ICD-10-PCS; 2021-10-25)
PROC: 3E0R33Z Introduction of Anti-inflammatory into Spinal Canal, Percutaneous Approach (ICD-10-PCS; 2021-10-25)
DX: M17.11 Unilateral primary osteoarthritis, right knee (principal); J45.909 Unspecified asthma, uncomplicated; E78.5 Hyperlipidemia, unspecified; J32.8 Other chronic sinusitis; Z87.738 Personal history of other specified (corrected) congenital malformations of digestive system; Z88.2 Allergy status to sulfonamides; Z29.8 Encounter for other specified prophylactic measures; Z88.8 Allergy status to other drugs, medicaments and biological substances
CPT/HCPCS: 36415; 71045-TC-FY; 71275-TC; 73560-TC-RT-FY; 80048; 80053; 82962; 83735; 85025; 88305-TC; 88311-TC; 93970-TC; 94760; 96365; 96366; 96372; 96375; 97010-GP; 97116-GP; 97161-GP; C9803-CS; G0378; Q9967; U0003; U0005

== ENCOUNTER 2021-10-28 18:55 | Emergency (ER) | payer OTHER ==
[2021-10-28 19:24] VITALS: BP 126/65; PULSE 97; TEMP 97.9; BMI 24.8
[2021-10-28] MEDS ORDERED: ACETAMINOPHEN 325 MG TABLET (FP) PO ONE (20:04)
[2021-10-28] MEDS ORDERED: oxyCODONE HCL 5 MG TABLET PO ONE (20:04)
[2021-10-28] MEDS ORDERED: oxyCODONE HCL 5 MG TABLET ONE (20:06)
[2021-10-28] MEDS ORDERED: ACETAMINOPHEN 325 MG TABLET (FP) ONE (20:06)
[2021-10-28] MEDS ORDERED: LORazepam 2 MG TABLET PO ONE (21:59)
[2021-10-28] MEDS ORDERED: LORazepam 1 MG TABLET ONE (22:01)
== END 2021-10-28 23:30 | disposition home or self-care (01) ==
LOC: JER 18:55
DX: R51.9 Headache, unspecified (principal); W19.XXXA Unspecified fall, initial encounter; Y92.9 Unspecified place or not applicable
CPT/HCPCS: 70450-TC; 72125-TC; 73560-TC-RT-FY; 99285-25

== ENCOUNTER 2022-12-07 20:34 | Emergency (ER) | payer OTHER, MEDICARE ==
[2022-12-07 20:43] VITALS: RESP 16; TEMP 97.6; BMI 25.4
[2022-12-07] MEDS ORDERED: ACETAMINOPHEN 325 MG TABLET (FP) PO ONE (21:01)
[2022-12-07] MEDS ORDERED: ACETAMINOPHEN 325 MG TABLET (FP) ONE (21:06)
[2022-12-07 23:04] VITALS: BP 128/74; PULSE 75
== END 2022-12-07 23:45 | disposition home or self-care (01) ==
LOC: JER 20:34
DX: M54.2 Cervicalgia (principal); R51.9 Headache, unspecified; M25.562 Pain in left knee; M54.50 Low back pain, unspecified; M25.511 Pain in right shoulder; M25.551 Pain in right hip; M25.552 Pain in left hip; V49.50XA Passenger injured in collision with unspecified motor vehicles in traffic accident, initial encounter
CPT/HCPCS: 70450-TC; 71046-TC-FY; 72125-TC; 72170-TC-FY; 73030-TC-RT-FY; 73562-TC-LT-FY; 99284-25

== ENCOUNTER 2023-02-04 22:18 | Emergency (ER) | payer MEDICARE, OTHER ==
[2023-02-04 22:28] VITALS: BP 137/78; PULSE 74; RESP 19; TEMP 97.7; BMI 25.8
[2023-02-04] MEDS ORDERED: ACYCLOVIR 400 MG TABLET PO ONE (23:23)
[2023-02-04] MEDS ORDERED: DEXAMETHASONE SOD PHOSPHATE 4 MG/1 ML VIAL IM ONE (23:23)
[2023-02-04] MEDS ORDERED: DEXAMETHASONE SOD PHOSPHATE 4 MG/1 ML VIAL ONE (23:37)
[2023-02-04] MEDS ORDERED: ACYCLOVIR 200 MG CAPSULE ONE (23:37)
== END 2023-02-05 00:16 | disposition home or self-care (01) ==
LOC: JER 22:18
PROC: 3E023GC Introduction of Other Therapeutic Substance into Muscle, Percutaneous Approach (ICD-10-PCS; principal; 2023-02-04)
DX: R22.1 Localized swelling, mass and lump, neck (principal); R22.2 Localized swelling, mass and lump, trunk; B02.9 Zoster without complications
CPT/HCPCS: 99284-25

== ENCOUNTER 2023-02-21 21:01 | Emergency (ER) | payer MEDICARE ==
[2023-02-21 21:11] VITALS: RESP 18; BMI 25.8
[2023-02-21] MEDS ORDERED: ACETAMINOPHEN 500 MG TABLET (FP) PO ONE (22:19)
[2023-02-22] MEDS ORDERED: ACETAMINOPHEN 500 MG TABLET (FP) ONE (00:32)
[2023-02-22 00:34] VITALS: BP 114/75; PULSE 71; TEMP 97.6
== END 2023-02-22 03:26 | disposition home or self-care (01) ==
LOC: JER 21:01
DX: S09.90XA Unspecified injury of head, initial encounter (principal); S09.93XA Unspecified injury of face, initial encounter; J32.9 Chronic sinusitis, unspecified; R51.9 Headache, unspecified; W10.9XXA Fall (on) (from) unspecified stairs and steps, initial encounter; Y92.009 Unspecified place in unspecified non-institutional (private) residence as the place of occurrence of the external cause
CPT/HCPCS: 70450-TC; 70486-TC; 72125-TC; 99284-25

== ENCOUNTER 2023-10-05 18:14 | Observation (INO) | payer MEDICARE, OTHER ==
[2023-10-05 18:31] VITALS: RESP 18
[2023-10-05] MEDS ORDERED: ACETAMINOPHEN INJECTION 100 ML IVPB ONE (20:29)
[2023-10-05 20:37] LABS: BASO % 1.2 % (0-2.0); EOS % 10.6 % (0-4.5); HEMATOCRIT 35.1 % (32.4-45.2); HEMOGLOBIN 11.5 GM/dL (10.7-15.3); LYMPH % 25.3 % (8-40); MCH 31.6 pg (25.7-33.7); MCHC 32.9 g/dl (32.0-36.0); MEAN PLT VOLUME 9.4 fl (7.5-11.1); MONO % 8.9 % (3.8-10.2); PLATELET COUNT 213 10^3/uL (134-434); RBC 3.66 M/mm3 (3.60-5.2); RDW 14.3 % (11.6-15.6); WHITE BLOOD COUNT 8.7 K/mm3 (4.0-10.0)
[2023-10-05] MEDS: ACETAMINOPHEN 1000 MG/100 ML BAG IVPB ONE (20:39)
[2023-10-05] MEDS ORDERED: methylPREDNISolone NA SUCC 125 MG/2 ML VIAL ONE (20:42)
[2023-10-05] MEDS ORDERED: ALBUTEROL SO4 2.5/IPRATROPIUM 0.5 INH SOL 3 ML VIAL.NEB. NEB ONE ×3 (20:42→21:50)
[2023-10-05 20:45] LABS: INR 0.99 (0.83-1.09); PROTHROMBIN TIME (PATIENT) 11.2 SEC (9.7-13.0)
[2023-10-05 20:47] LABS: ACTIVATED PTT 25.8 SECONDS (25.2-36.5)
[2023-10-05] MEDS: methylPREDNISolone NA SUCC 125 MG/2 ML VIAL IVPUSH ONE (20:54)
[2023-10-05] MEDS: ALBUTEROL SO4 2.5/IPRATROPIUM 0.5 INH SOL 3 ML VIAL.NEB. NEB SCH (20:54)
[2023-10-05] MEDS: SODIUM CHLORIDE 0.9% 500 ML INFUS.BAG IV ONE (20:54)
[2023-10-05 21:01] LABS: CHLORIDE 110 mmol/L (98-107); POTASSIUM 4.8 mmol/L (3.5-5.1); SODIUM 140 mmol/L (136-145)
[2023-10-05 21:03] LABS: ALBUMIN 3.1 g/dl (3.4-5.0); ANION GAP 6 mmol/L (4-13); CALCIUM 8.9 mg/dL (8.5-10.1); CO2 24 mmol/L (21-32); GLUCOSE,RANDOM 110 mg/dL (74-106)
[2023-10-05 21:04] LABS: MAGNESIUM 2.4 mg/dL (1.8-2.4)
[2023-10-05 21:06] LABS: CREATININE 1.1 mg/dL (0.55-1.3); SGOT/AST 48 U/L (15-37); SGPT/ALT 14 U/L (13-61)
[2023-10-05 21:08] LABS: BILIRUBIN,TOTAL 0.4 mg/dL (0.2-1); TOT PROT 7.4 g/dl (6.4-8.2)
[2023-10-05 21:09] LABS: ALK PHOS 113 U/L (45-117)
[2023-10-05 21:12] LABS: N-TERMINAL BNP 32.1 pg/ml (5-125)
[2023-10-06] MEDS ORDERED: DOCUSATE SODIUM 100 MG CAPSULE (FP) PO PRN (00:04)
[2023-10-06] MEDS ORDERED: ACETAMINOPHEN 325 MG TABLET (FP) ONE (00:28)
[2023-10-06] MEDS: ACETAMINOPHEN 325 MG TABLET (FP) PO PRN ×2 (00:37→10:15)
[2023-10-06] MEDS: ALBUTEROL SO4 2.5/IPRATROPIUM 0.5 INH SOL 3 ML VIAL.NEB. NEB PRN (04:00)
[2023-10-06 05:22] VITALS: BMI 24.5
[2023-10-06] MEDS ORDERED: BENZOCAINE/MENTH/CETYLPYRD CL 1 EACH LOZENGE MM PRN (06:11)
[2023-10-06] MEDS: methylPREDNISolone NA SUCC 40 MG/1 ML VIAL IVPUSH SCH (08:27)
[2023-10-06] MEDS ORDERED: POLYETHYLENE GLYCOL (HEALTHYLAX) 3350 17 GM PACKET PO PRN (08:42)
[2023-10-06] MEDS ORDERED: HYDROCORTISONE 1% TOPICAL CREAM 30 GM TUBE TP SCH (10:00)
[2023-10-06] MEDS: MULTIVITAMINS (DAILY MVI) TABLET (FP) PO SCH (10:15)
[2023-10-06] MEDS: valACYclovir HCL 500 MG TABLET (FP) PO SCH (10:15)
[2023-10-06] MEDS: CLOTRIMAZOLE/BETAMET DIPROP 15 GM TUBE TP SCH (10:17)
[2023-10-06] MEDS: LORATADINE 10 MG TABLET PO SCH (10:17)
[2023-10-06] MEDS: guaiFENesin/D-METHORPHAN TAB.ER.12H PO SCH (14:05)
[2023-10-06] MEDS: MONTELUKAST NA 10 MG TABLET PO SCH (18:31)
[2023-10-06] MEDS: ATORVASTATIN CA 40 MG TABLET (FP) PO SCH (21:26)
[2023-10-06] MEDS: PREGABALIN 100 MG CAPSULE PO SCH (21:28)
[2023-10-06] MEDS: MELATONIN 5 MG TABLETS PO PRN (21:28)
[2023-10-06] MEDS: busPIRone HCL 5 MG TABLET PO ONE (22:08)
[2023-10-07 06:55] VITALS: PULSE 85
[2023-10-07 09:57] LABS: HEMATOCRIT 34.7 % (32.4-45.2); HEMOGLOBIN 11.5 GM/dL (10.7-15.3); MCH 31.4 pg (25.7-33.7); MCHC 33.2 g/dl (32.0-36.0); MEAN CELL VOLUME 94.6 fl (80-96); MEAN PLT VOLUME 10.6 fl (7.5-11.1); PLATELET COUNT 208 10^3/uL (134-434); RBC 3.67 M/mm3 (3.60-5.2); RDW 14.2 % (11.6-15.6); WHITE BLOOD COUNT 14.6 K/mm3 (4.0-10.0)
[2023-10-07 10:07] LABS: POTASSIUM 3.8 mmol/L (3.5-5.1)
[2023-10-07 10:11] LABS: CALCIUM 9.3 mg/dL (8.5-10.1)
[2023-10-07 10:15] LABS: CREATININE 0.7 mg/dL (0.55-1.3)
[2023-10-07 10:54] LABS: ANISOCYTOSIS 0; MACROCYTOSIS 0
[2023-10-07 13:16] VITALS: BP 130/75; TEMP 98.4
== END 2023-10-07 13:20 | disposition home or self-care (01) ==
LOC: JER 18:14 → JERBED 22:59 → J8W 10-06 02:39
PROVIDERS: ADMIT Internal Medicine; ATTEND Family Medicine
PROC: 3E033NZ Introduction of Analgesics, Hypnotics, Sedatives into Peripheral Vein, Percutaneous Approach (ICD-10-PCS; principal; 2023-10-05)
PROC: 3E0F7GC Introduction of Other Therapeutic Substance into Respiratory Tract, Via Natural or Artificial Opening (ICD-10-PCS; 2023-10-05)
PROC: 3E033GC Introduction of Other Therapeutic Substance into Peripheral Vein, Percutaneous Approach (ICD-10-PCS; 2023-10-05)
PROC: 3E0337Z Introduction of Electrolytic and Water Balance Substance into Peripheral Vein, Percutaneous Approach (ICD-10-PCS; 2023-10-05)
DX: J98.01 Acute bronchospasm (principal); L30.9 Dermatitis, unspecified; B02.29 Other postherpetic nervous system involvement; R06.02 Shortness of breath; R00.0 Tachycardia, unspecified; R07.9 Chest pain, unspecified; R20.8 Other disturbances of skin sensation; Z88.2 Allergy status to sulfonamides; Z88.8 Allergy status to other drugs, medicaments and biological substances; E78.5 Hyperlipidemia, unspecified; J44.9 Chronic obstructive pulmonary disease, unspecified
CPT/HCPCS: 0241U-QW; 36415; 71045-TC-FY; 80048; 80053; 82550; 82553; 83735; 83880; 84443; 84484; 85025; 85610; 85730; 93005; 93010; 94640; 96361; 96374; 96375; 96376; 99285-25; G0378; J0131

== ENCOUNTER 2023-11-10 01:13 | Inpatient (IN) | payer MEDICARE, OTHER ==
[2023-11-10] MEDS ORDERED: ALBUTEROL SO4 2.5/IPRATROPIUM 0.5 INH SOL 3 ML VIAL.NEB. NEB ONE (01:25)
[2023-11-10] MEDS: ALBUTEROL SO4 2.5/IPRATROPIUM 0.5 INH SOL 3 ML VIAL.NEB. NEB SCH (01:30)
[2023-11-10] MEDS ORDERED: methylPREDNISolone NA SUCC 125 MG/2 ML VIAL ONE (01:46)
[2023-11-10] MEDS: methylPREDNISolone NA SUCC 125 MG/2 ML VIAL IVPUSH ONE (01:47)
[2023-11-10] MEDS: SODIUM CHLORIDE 0.9% 500 ML INFUS.BAG IV ONE (01:47)
[2023-11-10 02:05] LABS: VENOUS O2 SATURATION 71.1 % (70-80); VENOUS PCO2 45.5 mmHg (38-52); VENOUS PH 7.308 (7.310-7.410)
[2023-11-10 02:06] LABS: BASO % 0.4 % (0-2.0); EOS % 0.2 % (0-4.5); HEMOGLOBIN 12.5 GM/dL (10.7-15.3); LYMPH % 19.8 % (8-40); MCH 32.2 pg (25.7-33.7); MCHC 33.9 g/dl (32.0-36.0); NEUT % 69.6 % (42.8-82.8); PLATELET COUNT 233 10^3/uL (134-434); RBC 3.89 M/mm3 (3.60-5.2); RDW 14.7 % (11.6-15.6); WHITE BLOOD COUNT 8.9 K/mm3 (4.0-10.0)
[2023-11-10 02:22] LABS: INR 0.92 (0.83-1.09); PROTHROMBIN TIME (PATIENT) 10.4 SEC (9.7-13.0)
[2023-11-10 02:24] LABS: ACTIVATED PTT 24.6 SECONDS (25.2-36.5)
[2023-11-10 02:25] LABS: CHLORIDE 108 mmol/L (98-107); POTASSIUM 3.5 mmol/L (3.5-5.1); SODIUM 139 mmol/L (136-145)
[2023-11-10 02:27] LABS: BLOOD UREA NITROGEN 24.3 mg/dL (7-18); CALCIUM 8.4 mg/dL (8.5-10.1)
[2023-11-10 02:28] LABS: ALBUMIN 4.1 g/dl (3.4-5.0); ANION GAP 7 mmol/L (4-13); CO2 24 mmol/L (21-32); GLUCOSE,RANDOM 108 mg/dL (74-106); MAGNESIUM 2.3 mg/dL (1.8-2.4)
[2023-11-10 02:31] LABS: CREATININE 0.8 mg/dL (0.55-1.3); SGOT/AST 24 U/L (15-37); SGPT/ALT 10 U/L (13-61)
[2023-11-10 02:32] LABS: BILIRUBIN,TOTAL 0.5 mg/dL (0.2-1); TOT PROT 8.1 g/dl (6.4-8.2)
[2023-11-10 02:34] LABS: ALK PHOS 125 U/L (45-117)
[2023-11-10] MEDS ORDERED: AZITHROMYCIN IVPB 500 MG/250 ML BAG IVPB ONE (03:32)
[2023-11-10] MEDS ORDERED: cefTRIAXone SODIUM 1 GM VIAL ONE ×2 (03:32→03:36)
[2023-11-10] MEDS: AZITHROMYCIN IVPB 500 MG in DEXTROSE 5%-WATER - 250 ML IVPB ONE (04:33)
[2023-11-10 08:15] LABS: HEMOGLOBIN 11.6 GM/dL (10.7-15.3); MCH 31.9 pg (25.7-33.7); MCHC 33.2 g/dl (32.0-36.0); MEAN PLT VOLUME 10.4 fl (7.5-11.1); PLATELET COUNT 218 10^3/uL (134-434); RBC 3.64 M/mm3 (3.60-5.2); RDW 14.5 % (11.6-15.6)
[2023-11-10 08:34] LABS: POTASSIUM 3.4 mmol/L (3.5-5.1)
[2023-11-10 08:37] LABS: CALCIUM 8.2 mg/dL (8.5-10.1)
[2023-11-10 08:38] LABS: BLOOD UREA NITROGEN 14.3 mg/dL (7-18)
[2023-11-10 08:41] LABS: CREATININE 0.9 mg/dL (0.55-1.3)
[2023-11-10] MEDS ORDERED: GABAPENTIN 300 MG CAPSULE PO PRN (10:11)
[2023-11-10] MEDS ORDERED: DOCUSATE SODIUM 100 MG CAPSULE (FP) PO PRN (10:11)
[2023-11-10 10:14] LABS: ANISOCYTOSIS 0; HELMET CELLS 0; HOWELL-JOLLY BODIES 0; MACROCYTOSIS 0; OVALOCYTE 0; ROULEAU 0; SICKELED CELLS 0; TARGET CELLS 0; TEAR DROP CELLS 0; TOXIC GRANULATION 0
[2023-11-10] MEDS ORDERED: ALBUTEROL SO4 2.5/IPRATROPIUM 0.5 INH SOL 3 ML VIAL.NEB. NEB PRN ×3 (10:14→10:30)
[2023-11-10] MEDS: MONTELUKAST NA 10 MG TABLET PO SCH ×2 (11:10→21:25)
[2023-11-10] MEDS: PANTOPRAZOLE 40 MG TABLET PO SCH (11:22)
[2023-11-10] MEDS: valACYclovir HCL 500 MG TABLET (FP) PO SCH (11:25)
[2023-11-10] MEDS: busPIRone HCL 5 MG TABLET PO SCH (11:25)
[2023-11-10] MEDS: BUDESONIDE/FORMOTEROL FUMARATE 160-4.5 MCG (10.3 GM INHALER) IH SCH (12:21)
[2023-11-10] MEDS: FLUTICASONE/UMECLIDIN/VILANTER(200-62.5-25 TRELEGY ELLIPTA) INAHLER IH SCH (12:22)
[2023-11-10] MEDS: PREGABALIN 100 MG CAPSULE PO SCH (12:22)
[2023-11-10] MEDS ORDERED: ALBUTEROL SO4 0.083% IH SOL 2.5 MG/3 ML VIAL.NEB. NEB PRN (15:27)
[2023-11-10] MEDS ORDERED: methylPREDNISolone NA SUCC 40 MG/1 ML VIAL IVPUSH SCH (18:00)
[2023-11-10 18:06] VITALS: BMI 22.8
[2023-11-10 19:56] LABS: EPI CELLS 32 /uL (0-25.1); HYALINE CASTS 3 /uL (0-3.1); URINE APPEARANCE CLEAR; URINE BACTERIA 17 /uL (0-1359); URINE BILIRUBIN NEGATIVE (NEGATIVE); URINE COLOR YELLOW; URINE GLUCOSE (UA) TRACE (NEGATIVE); URINE KETONE TRACE (NEGATIVE); URINE LEUK ESTERASE NEGATIVE (NEGATIVE); URINE NITRITE NEGATIVE (NEGATIVE); URINE PROTEIN 1+ (NEGATIVE); URINE RBC 15 /uL (0-23.9); URINE UROBILINOGEN 0.2 mg/dL (0.2-1.0); URINE WBC 42 /uL (0-25.8)
[2023-11-10] MEDS: POLYETHYLENE GLYCOL (HEALTHYLAX) 3350 17 GM PACKET PO SCH (21:25)
[2023-11-10] MEDS: SENNOSIDES/DOCUSATE COMBO (SENNA PLUS) TABLET (UD) PO SCH (21:25)
[2023-11-10] MEDS ORDERED: PREGABALIN 100 MG CAPSULE PO SCH (22:00)
[2023-11-10] MEDS ORDERED: MONTELUKAST NA 5 MG TAB.CHEW PO SCH (22:00)
[2023-11-11 07:39] LABS: POTASSIUM 3.4 mmol/L (3.5-5.1)
[2023-11-11 07:48] LABS: ALBUMIN 3.3 g/dl (3.4-5.0); CALCIUM 8.3 mg/dL (8.5-10.1)
[2023-11-11 07:51] LABS: BILIRUBIN,TOTAL 0.4 mg/dL (0.2-1); CREATININE 0.6 mg/dL (0.55-1.3); TOT PROT 6.4 g/dl (6.4-8.2)
[2023-11-11 07:55] LABS: BASO % 0.3 % (0-2.0); EOS % 0.3 % (0-4.5); HEMATOCRIT 32.6 % (32.4-45.2); LYMPH % 33.7 % (8-40); MCHC 33.7 g/dl (32.0-36.0); MEAN CELL VOLUME 95.2 fl (80-96); MEAN PLT VOLUME 11.7 fl (7.5-11.1); MONO % 10.2 % (3.8-10.2); NEUT % 55.5 % (42.8-82.8); PLATELET COUNT 189 10^3/uL (134-434); RBC 3.43 M/mm3 (3.60-5.2); RDW 14.8 % (11.6-15.6); WHITE BLOOD COUNT 10.1 K/mm3 (4.0-10.0)
[2023-11-11] MEDS: CEFTRIAXONE 1 GM in DEXTROSE 5%-WATER - 50 ML IVPB SCH (09:39)
[2023-11-11] MEDS: methylPREDNISolone NA SUCC 40 MG/1 ML VIAL IVPUSH SCH (09:39)
[2023-11-11] MEDS: MULTIVITAMINS (DAILY MVI) TABLET (FP) PO SCH (09:42)
[2023-11-11] MEDS: AZITHROMYCIN IVPB 500 MG/250 ML BAG IVPB SCH (10:55)
[2023-11-11] MEDS: ENOXAPARIN NA (PORCINE) 40 MG/0.4 ML DISP.SYRIN SQ SCH (10:55)
[2023-11-11] MEDS: POTASSIUM CHLORIDE ORAL LIQUID 20 MEQ/15 ML PO ONE (13:01)
[2023-11-11] MEDS: ATORVASTATIN CA 10 MG TABLET (FP) PO SCH (21:40)
[2023-11-12 07:04] LABS: BASO % 0.4 % (0-2.0); EOS % 0.5 % (0-4.5); HEMATOCRIT 36.1 % (32.4-45.2); HEMOGLOBIN 11.9 GM/dL (10.7-15.3); LYMPH % 37.2 % (8-40); MCH 31.5 pg (25.7-33.7); MCHC 33.1 g/dl (32.0-36.0); MEAN CELL VOLUME 95.3 fl (80-96); MEAN PLT VOLUME 11.1 fl (7.5-11.1); MONO % 10.1 % (3.8-10.2); NEUT % 51.8 % (42.8-82.8); PLATELET COUNT 205 10^3/uL (134-434); RBC 3.79 M/mm3 (3.60-5.2); RDW 14.6 % (11.6-15.6); WHITE BLOOD COUNT 11.7 K/mm3 (4.0-10.0)
[2023-11-12 07:20] LABS: POTASSIUM 3.9 mmol/L (3.5-5.1)
[2023-11-12 07:27] LABS: ALBUMIN 3.5 g/dl (3.4-5.0); BLOOD UREA NITROGEN 21.5 mg/dL (7-18); CALCIUM 8.7 mg/dL (8.5-10.1)
[2023-11-12 07:30] LABS: CREATININE 0.6 mg/dL (0.55-1.3)
[2023-11-12 07:32] LABS: BILIRUBIN,TOTAL 0.5 mg/dL (0.2-1); TOT PROT 6.7 g/dl (6.4-8.2)
[2023-11-12] MEDS ORDERED: ACETAMINOPHEN 325 MG TABLET (FP) PO PRN (20:34)
[2023-11-12] MEDS: PREGABALIN 100 MG CAPSULE PO SCH (21:17)
[2023-11-13 18:12] VITALS: RESP 18
[2023-11-14 18:09] VITALS: BP 129/77; PULSE 83; TEMP 98.2
== END 2023-11-14 18:32 | disposition home or self-care (01) | DRG 194 ==
LOC: JER 01:13 → JERBED 03:35 → J4W 08:29
PROVIDERS: ADMIT Internal Medicine; ATTEND Internal Medicine
DX: J18.9 Pneumonia, unspecified organism (principal); B02.29 Other postherpetic nervous system involvement; I24.89 Other forms of acute ischemic heart disease; J45.901 Unspecified asthma with (acute) exacerbation; E78.5 Hyperlipidemia, unspecified; F03.90 Unspecified dementia, unspecified severity, without behavioral disturbance, psychotic disturbance, mood disturbance, and anxiety; J44.9 Chronic obstructive pulmonary disease, unspecified
CPT/HCPCS: 0241U-QW; 36415; 71045-TC-FY; 71250-TC; 80048; 80053; 81003; 82550; 82803; 83735; 83880; 84484; 85025; 85610; 85730; 87040; 87086; 87899; 93005; 93010; 93306-TC; 99285-25

== ENCOUNTER 2024-01-06 05:07 | Inpatient (IN) | payer MEDICARE, OTHER ==
[2024-01-06] MEDS ORDERED: LIDOCAINE HCL/PF 2% SDV 5ML VIAL ONE (15:11)
[2024-01-06] MEDS ORDERED: PROPOFOL 20 ML ONE (15:12)
[2024-01-06] MEDS ORDERED: ONDANSETRON 4 MG/2 ML VIAL ONE (15:12)
[2024-01-06] MEDS ORDERED: KETOROLAC TROMETHAMINE 30 MG/1 ML VIAL ONE (15:12)
[2024-01-06] MEDS: ceFAZolin SODIUM 1 GM VIAL IVPB ONE (15:20)
[2024-01-06] MEDS ORDERED: ALBUTEROL SO4 0.083% IH SOL 2.5 MG/3 ML VIAL.NEB. NEB ONE (16:18)
[2024-01-06] MEDS ORDERED: methylPREDNISolone NA SUCC 125 MG/2 ML VIAL ONE (16:22)
[2024-01-06] MEDS ORDERED: IPRATROPIUM BR 0.02% 0.5 MG/2.5 ML VIAL.NEB. NEB ONE (16:22)
[2024-01-06] MEDS ORDERED: RACEPINEPHRINE IH SOL 2.25% 11.25 MG/0.5 ML VIAL NEB ONE (16:26)
[2024-01-06] MEDS: methylPREDNISolone NA SUCC 125 MG/2 ML VIAL IVPUSH ONE (18:54)
[2024-01-06] MEDS: ALBUTEROL SO4 0.083% IH SOL 2.5 MG/3 ML VIAL.NEB. NEB ONE (20:21)
[2024-01-06] MEDS: RACEPINEPHRINE IH SOL 2.25% 11.25 MG/0.5 ML VIAL NEB ONE (20:21)
[2024-01-06] MEDS: IPRATROPIUM BR 0.02% 0.5 MG/2.5 ML VIAL.NEB. NEB ONE (20:21)
[2024-01-06] MEDS: ACETAMINOPHEN 1000 MG/100 ML BAG IVPB ONE (20:47)
[2024-01-06] MEDS: FAMOTIDINE 20 MG/50 ML IVPB 20 MG/50 ML MG IVPB ONE (21:22)
[2024-01-06] MEDS: busPIRone HCL 5 MG TABLET PO SCH (22:12)
[2024-01-07] MEDS: methylPREDNISolone NA SUCC 40 MG/1 ML VIAL IVPUSH SCH (02:17)
[2024-01-07] MEDS: DOCUSATE SODIUM 100 MG CAPSULE (FP) PO ONE (05:43)
[2024-01-07] MEDS: ACETAMINOPHEN 1000 MG/100 ML BAG IVPB ONE (05:44)
[2024-01-07 07:31] LABS: POTASSIUM 3.6 mmol/L (3.5-5.1)
[2024-01-07 07:33] LABS: BASO % 0.3 % (0-2.0); CALCIUM 9.4 mg/dL (8.5-10.1); HEMATOCRIT 39.5 % (32.4-45.2); HEMOGLOBIN 13.3 GM/dL (10.7-15.3); LYMPH % 9.7 % (8-40); MCH 31.6 pg (25.7-33.7); MCHC 33.7 g/dl (32.0-36.0); MEAN CELL VOLUME 93.7 fl (80-96); MONO % 2.1 % (3.8-10.2); NEUT % 87.9 % (42.8-82.8); RBC 4.21 M/mm3 (3.60-5.2); RDW 13.4 % (11.6-15.6); WHITE BLOOD COUNT 10.1 K/mm3 (4.0-10.0)
[2024-01-07 07:34] LABS: BLOOD UREA NITROGEN 13.3 mg/dL (7-18)
[2024-01-07 07:37] LABS: CREATININE 0.7 mg/dL (0.55-1.3)
[2024-01-07 08:40] LABS: PLATELET COUNT 202 10^3/uL (134-434)
[2024-01-07] MEDS: PREGABALIN 75 MG CAPSULE PO SCH (10:42)
[2024-01-07] MEDS: ACETAMINOPHEN 1000 MG/100 ML BAG IVPB PRN (10:42)
[2024-01-07] MEDS: amLODIPine BESYLATE 10 MG TABLET (FP) PO SCH (15:29)
[2024-01-07] MEDS: BISACODYL 10 MG SUPP.RECT PR PRN (16:35)
[2024-01-07] MEDS: ONDANSETRON 4 MG/2 ML VIAL IVPUSH ONE (19:59)
[2024-01-07] MEDS: PREGABALIN 75 MG CAPSULE PO ONE (22:04)
[2024-01-08] MEDS: ONDANSETRON 4 MG/2 ML VIAL IVPUSH ONE (09:39)
[2024-01-08 12:47] LABS: HEMATOCRIT 46.3 % (32.4-45.2); HEMOGLOBIN 15.7 GM/dL (10.7-15.3); MCH 31.5 pg (25.7-33.7); MEAN CELL VOLUME 92.5 fl (80-96); MEAN PLT VOLUME 10.4 fl (7.5-11.1); PLATELET COUNT 243 10^3/uL (134-434); RDW 14.1 % (11.6-15.6); WHITE BLOOD COUNT 20.9 K/mm3 (4.0-10.0)
[2024-01-08 13:14] LABS: POTASSIUM 3.3 mmol/L (3.5-5.1)
[2024-01-08 13:17] LABS: CALCIUM 9.7 mg/dL (8.5-10.1)
[2024-01-08 13:18] LABS: ALBUMIN 3.7 g/dl (3.4-5.0); BLOOD UREA NITROGEN 27.4 mg/dL (7-18)
[2024-01-08 13:21] LABS: CREATININE 1.3 mg/dL (0.55-1.3)
[2024-01-08 13:22] LABS: ANISOCYTOSIS 0; BILIRUBIN,TOTAL 0.8 mg/dL (0.2-1); MACROCYTOSIS 0; TOT PROT 7.7 g/dl (6.4-8.2)
[2024-01-08] MEDS: PANTOPRAZOLE 40 MG TABLET PO SCH (14:32)
[2024-01-08] MEDS: ONDANSETRON 4 MG/2 ML VIAL IVPUSH PRN (14:50)
[2024-01-08] MEDS: ONDANSETRON 4 MG/2 ML VIAL IVPUSH SCH (18:03)
[2024-01-08] MEDS: DEXTROSE 5%-0.45% SALINE 1,000 ML IV SCH (18:03)
[2024-01-08] MEDS: PREGABALIN 75 MG CAPSULE PO SCH (21:05)
[2024-01-09 06:52] LABS: BASO % 0.1 % (0-2.0); HEMATOCRIT 42.7 % (32.4-45.2); HEMOGLOBIN 14.3 GM/dL (10.7-15.3); LYMPH % 5.5 % (8-40); MCH 31.7 pg (25.7-33.7); MCHC 33.6 g/dl (32.0-36.0); MEAN CELL VOLUME 94.5 fl (80-96); MEAN PLT VOLUME 9.8 fl (7.5-11.1); MONO % 14.8 % (3.8-10.2); NEUT % 79.6 % (42.8-82.8); PLATELET COUNT 166 10^3/uL (134-434); RBC 4.52 M/mm3 (3.60-5.2); WHITE BLOOD COUNT 19.1 K/mm3 (4.0-10.0)
[2024-01-09 07:14] LABS: POTASSIUM 3.1 mmol/L (3.5-5.1)
[2024-01-09 07:20] LABS: CALCIUM 8.4 mg/dL (8.5-10.1)
[2024-01-09 07:21] LABS: BLOOD UREA NITROGEN 35.5 mg/dL (7-18)
[2024-01-09 07:24] LABS: CREATININE 1.7 mg/dL (0.55-1.3)
[2024-01-09 07:26] LABS: BILIRUBIN,TOTAL 0.7 mg/dL (0.2-1); TOT PROT 6.4 g/dl (6.4-8.2)
[2024-01-09 08:51] LABS: EPI CELLS 4 /uL (0-25.1); HYALINE CASTS 0 /uL (0-3.1); URINE APPEARANCE CLEAR; URINE BACTERIA 1 /uL (0-1359); URINE BILIRUBIN NEGATIVE (NEGATIVE); URINE COLOR YELLOW; URINE GLUCOSE (UA) 1+ (NEGATIVE); URINE KETONE NEGATIVE (NEGATIVE); URINE LEUK ESTERASE NEGATIVE (NEGATIVE); URINE NITRITE NEGATIVE (NEGATIVE); URINE PROTEIN NEGATIVE (NEGATIVE); URINE RBC 1040 /uL (0-23.9); URINE UROBILINOGEN 0.2 mg/dL (0.2-1.0); URINE WBC 16 /uL (0-25.8)
[2024-01-09] MEDS: KCL 10 MEQ IVPB 10 MEQ/100 ML INFUS.BAG IVPB SCH (13:26)
[2024-01-09] MEDS ORDERED: CEFTRIAXONE 1 GM in DEXTROSE 5%-WATER - 50 ML IVPB SCH (15:30)
[2024-01-09] MEDS: CEFTRIAXONE 1 GM in DEXTROSE 5%-WATER - 50 ML IVPB ONE (16:28)
[2024-01-10 09:20] LABS: BASO % 0.6 % (0-2.0); EOS % 1.8 % (0-4.5); HEMATOCRIT 37.8 % (32.4-45.2); HEMOGLOBIN 12.8 GM/dL (10.7-15.3); LYMPH % 22.2 % (8-40); MCH 31.9 pg (25.7-33.7); MCHC 33.8 g/dl (32.0-36.0); MEAN CELL VOLUME 94.5 fl (80-96); MEAN PLT VOLUME 9.6 fl (7.5-11.1); NEUT % 64.4 % (42.8-82.8); PLATELET COUNT 141 10^3/uL (134-434); RDW 13.9 % (11.6-15.6)
[2024-01-10 09:40] LABS: POTASSIUM 3.4 mmol/L (3.5-5.1)
[2024-01-10 09:46] LABS: CALCIUM 8.5 mg/dL (8.5-10.1)
[2024-01-10 09:47] LABS: ALBUMIN 2.7 g/dl (3.4-5.0); BLOOD UREA NITROGEN 17.7 mg/dL (7-18)
[2024-01-10 09:50] LABS: CREATININE 0.9 mg/dL (0.55-1.3)
[2024-01-10 09:51] LABS: BILIRUBIN,TOTAL 0.5 mg/dL (0.2-1); TOT PROT 5.7 g/dl (6.4-8.2)
[2024-01-10] MEDS: CEFTRIAXONE 1 GM in DEXTROSE 5%-WATER - 50 ML IVPB SCH (10:57)
[2024-01-10] MEDS: KCL 10 MEQ IVPB 10 MEQ/100 ML INFUS.BAG IVPB SCH (18:24)
[2024-01-11 07:26] LABS: POTASSIUM 3.8 mmol/L (3.5-5.1)
[2024-01-11 07:35] LABS: ALBUMIN 2.4 g/dl (3.4-5.0); BLOOD UREA NITROGEN 12.7 mg/dL (7-18); CALCIUM 8.2 mg/dL (8.5-10.1)
[2024-01-11 07:36] LABS: BASO % 0.3 % (0-2.0); EOS % 4.2 % (0-4.5); HEMATOCRIT 35.6 % (32.4-45.2); LYMPH % 24.1 % (8-40); MCH 31.9 pg (25.7-33.7); MCHC 33.7 g/dl (32.0-36.0); MEAN CELL VOLUME 94.8 fl (80-96); MONO % 10.8 % (3.8-10.2); NEUT % 60.6 % (42.8-82.8); PLATELET COUNT 131 10^3/uL (134-434); RBC 3.76 M/mm3 (3.60-5.2); RDW 13.8 % (11.6-15.6); WHITE BLOOD COUNT 9.3 K/mm3 (4.0-10.0)
[2024-01-11 07:38] LABS: CREATININE 0.6 mg/dL (0.55-1.3)
[2024-01-11 07:39] LABS: BILIRUBIN,TOTAL 0.6 mg/dL (0.2-1); TOT PROT 5.3 g/dl (6.4-8.2)
[2024-01-12] MEDS: QUEtiapine FUMARATE 25 MG TABLET PO PRN (01:36)
[2024-01-12] MEDS: ACETAMINOPHEN 1000 MG/100 ML BAG IVPB PRN (14:22)
[2024-01-13] MEDS: ACETAMINOPHEN 1000 MG/100 ML BAG IVPB ONE (22:25)
[2024-01-14 07:46] LABS: BASO % 0.3 % (0-2.0); EOS % 3.3 % (0-4.5); HEMATOCRIT 37.7 % (32.4-45.2); HEMOGLOBIN 12.7 GM/dL (10.7-15.3); MCH 31.8 pg (25.7-33.7); MCHC 33.8 g/dl (32.0-36.0); MEAN CELL VOLUME 94.3 fl (80-96); MEAN PLT VOLUME 10.3 fl (7.5-11.1); MONO % 12.2 % (3.8-10.2); NEUT % 73.2 % (42.8-82.8); PLATELET COUNT 115 10^3/uL (134-434); RDW 14.1 % (11.6-15.6); WHITE BLOOD COUNT 12.7 K/mm3 (4.0-10.0)
[2024-01-14 07:51] LABS: POTASSIUM 3.9 mmol/L (3.5-5.1)
[2024-01-14 08:01] LABS: CALCIUM 8.6 mg/dL (8.5-10.1)
[2024-01-14 08:03] LABS: ALBUMIN 2.5 g/dl (3.4-5.0); BLOOD UREA NITROGEN 23.4 mg/dL (7-18)
[2024-01-14 08:05] LABS: CREATININE 0.9 mg/dL (0.55-1.3)
[2024-01-14 08:07] LABS: BILIRUBIN,TOTAL 0.5 mg/dL (0.2-1); TOT PROT 5.7 g/dl (6.4-8.2)
[2024-01-14 08:30] LABS: CHOLESTEROL 197 mg/dL (50-200); HDL CHOLESTEROL 83 mg/dL (40-60); LDL CHOLESTEROL (ONLY DFH) 96 mg/dL (5-100)
[2024-01-14] MEDS ORDERED: cefTRIAXone SODIUM 1 GM VIAL ONE (09:21)
[2024-01-14] MEDS: ACETAMINOPHEN 1000 MG/100 ML BAG IVPB PRN (11:20)
[2024-01-14] MEDS: ATORVASTATIN CA 10 MG TABLET (FP) PO SCH (21:20)
[2024-01-15] MEDS: POLYETHYLENE GLYCOL (HEALTHYLAX) 3350 17 GM PACKET PO SCH (11:00)
[2024-01-15 12:15] LABS: N-TERMINAL BNP 185.4 pg/ml (5-125)
[2024-01-15] MEDS ORDERED: SENNOSIDES 8.6MG TABLET (FP) PO PRN (15:48)
[2024-01-15] MEDS: TAMSULOSIN HCL 0.4 MG CAP PO SCH (18:28)
[2024-01-15] MEDS: PREGABALIN 75 MG CAPSULE PO SCH (21:12)
[2024-01-16] MEDS: ACETAMINOPHEN 325 MG TABLET (FP) PO ONE (21:16)
[2024-01-18 15:55] VITALS: BMI 21.4
[2024-01-19 09:56] VITALS: BP 95/60; PULSE 95; RESP 17; TEMP 98.4
== END 2024-01-19 12:58 | DRG 981 ==
LOC: JASU-SURG 05:07 → J2C 17:28 → J4W 18:40
PROVIDERS: ADMIT Urology; ATTEND Internal Medicine
PROC: 0TVD8ZZ Restriction of Urethra, Via Natural or Artificial Opening Endoscopic (ICD-10-PCS; principal; 2024-01-06 13:00)
DX: R09.02 Hypoxemia (principal); I63.89 Other cerebral infarction; B02.29 Other postherpetic nervous system involvement; T88.6XXA Anaphylactic reaction due to adverse effect of correct drug or medicament properly administered, initial encounter; G91.2 (Idiopathic) normal pressure hydrocephalus; T39.395A Adverse effect of other nonsteroidal anti-inflammatory drugs [NSAID], initial encounter; T39.8X5A Adverse effect of other nonopioid analgesics and antipyretics, not elsewhere classified, initial encounter; R00.0 Tachycardia, unspecified; J44.9 Chronic obstructive pulmonary disease, unspecified; E78.5 Hyperlipidemia, unspecified; F03.90 Unspecified dementia, unspecified severity, without behavioral disturbance, psychotic disturbance, mood disturbance, and anxiety; N36.42 Intrinsic sphincter deficiency (ISD); N39.3 Stress incontinence (female) (male); F32.A Depression, unspecified; G31.85 Corticobasal degeneration; Y83.8 Other surgical procedures as the cause of abnormal reaction of the patient, or of later complication, without mention of misadventure at the time of the procedure; Z98.890 Other specified postprocedural states
CPT/HCPCS: 36415; 70450-TC; 70551-TC; 74018-TC-FY; 74176-TC; 80048; 80053; 80061; 81003; 83036; 83880; 84443; 85025; 87086; 93005; 93010; 93306-TC; 93880-TC; 97116-GP; 97162-GP; J0131; L8606

== ENCOUNTER 2024-03-01 15:39 | Inpatient (IN) | payer MEDICARE, OTHER ==
[2024-03-01 18:59] LABS: BASO % 0.3 % (0-2.0); EOS % 0.2 % (0-4.5); HEMATOCRIT 32.4 % (32.4-45.2); HEMOGLOBIN 10.9 GM/dL (10.7-15.3); LYMPH % 7.9 % (8-40); MCH 30.9 pg (25.7-33.7); MCHC 33.5 g/dl (32.0-36.0); MEAN CELL VOLUME 92.4 fl (80-96); MEAN PLT VOLUME 9.8 fl (7.5-11.1); NEUT % 82.6 % (42.8-82.8); PLATELET COUNT 218 10^3/uL (134-434); RBC 3.51 M/mm3 (3.60-5.2); RDW 14.3 % (11.6-15.6); WHITE BLOOD COUNT 15.4 K/mm3 (4.0-10.0)
[2024-03-01] MEDS ORDERED: ALBUTEROL SO4 2.5/IPRATROPIUM 0.5 INH SOL 3 ML VIAL.NEB. NEB ONE (19:04)
[2024-03-01] MEDS ORDERED: methylPREDNISolone NA SUCC 125 MG/2 ML VIAL ONE (19:05)
[2024-03-01] MEDS ORDERED: ACETAMINOPHEN INJECTION 100 ML ONE (19:05)
[2024-03-01 19:23] LABS: CHLORIDE 103 mmol/L (98-107); SODIUM 138 mmol/L (136-145)
[2024-03-01 19:24] LABS: POTASSIUM 2.8 mmol/L (3.5-5.1)
[2024-03-01 19:25] LABS: CALCIUM 8.3 mg/dL (8.5-10.1); GLUCOSE,RANDOM 130 mg/dL (74-106)
[2024-03-01 19:26] LABS: ALBUMIN 2.7 g/dl (3.4-5.0); ANION GAP 8 mmol/L (4-13); BLOOD UREA NITROGEN 14.3 mg/dL (7-18); CO2 27 mmol/L (21-32)
[2024-03-01 19:28] LABS: CREATININE 0.7 mg/dL (0.55-1.3)
[2024-03-01 19:29] LABS: SGOT/AST 22 U/L (15-37); SGPT/ALT 10 U/L (13-61)
[2024-03-01 19:30] LABS: BILIRUBIN,TOTAL 0.6 mg/dL (0.2-1); TOT PROT 6.6 g/dl (6.4-8.2)
[2024-03-01 19:32] LABS: ALK PHOS 105 U/L (45-117)
[2024-03-01 19:33] LABS: N-TERMINAL BNP 82.9 pg/ml (5-125)
[2024-03-01 19:40] LABS: ACTIVATED PTT 30.8 SECONDS (25.2-36.5); INR 1.13 (0.83-1.09); PROTHROMBIN TIME (PATIENT) 12.9 SEC (9.7-13.0)
[2024-03-01] MEDS: ALBUTEROL SO4 2.5/IPRATROPIUM 0.5 INH SOL 3 ML VIAL.NEB. NEB ONE (19:43)
[2024-03-01] MEDS: ACETAMINOPHEN 1000 MG/100 ML BAG IVPB ONE (19:44)
[2024-03-01] MEDS: methylPREDNISolone NA SUCC 125 MG/2 ML VIAL IVPB ONE (19:44)
[2024-03-01 20:10] LABS: EPI CELLS 12 /uL (0-25.1); HYALINE CASTS 12 /uL (0-3.1); URINE APPEARANCE CLOUDY; URINE BACTERIA 121 /uL (0-1359); URINE BILIRUBIN NEGATIVE (NEGATIVE); URINE COLOR DK YELLOW; URINE GLUCOSE (UA) TRACE (NEGATIVE); URINE KETONE TRACE (NEGATIVE); URINE LEUK ESTERASE 1+ (NEGATIVE); URINE NITRITE NEGATIVE (NEGATIVE); URINE PROTEIN 2+ (NEGATIVE); URINE RBC 56 /uL (0-23.9); URINE WBC 355 /uL (0-25.8)
[2024-03-01] MEDS ORDERED: CEFTRIAXONE 1 GM/50 ML BAG ONE (20:29)
[2024-03-01] MEDS ORDERED: POTASSIUM CHLORIDE TABS 20 MEQ TABLET.ER (FP) PO ONE (20:29)
[2024-03-01] MEDS: POTASSIUM CHLORIDE TABS 20 MEQ TABLET.ER (FP) PO ONE (20:38)
[2024-03-01] MEDS: CEFTRIAXONE 1 GM in DEXTROSE 5%-WATER - 100 ML IVPB ONE (20:38)
[2024-03-01] MEDS ORDERED: AZITHROMYCIN IVPB 500 MG/250 ML BAG IVPB ONE (21:30)
[2024-03-01] MEDS: AZITHROMYCIN IVPB 500 MG in DEXTROSE 5%-WATER - 250 ML IVPB ONE (21:41)
[2024-03-01] MEDS: SODIUM CHLORIDE 0.9% 500 ML INFUS.BAG IV ONE (21:41)
[2024-03-02] MEDS ORDERED: POTASSIUM CHLORIDE TABS 20 MEQ TABLET.ER (FP) PO ONE (01:16)
[2024-03-02] MEDS: POTASSIUM CHLORIDE TABS 20 MEQ TABLET.ER (FP) PO ONE (01:38)
[2024-03-02] MEDS: KCL 10 MEQ IVPB 10 MEQ/100 ML INFUS.BAG IVPB SCH (01:38)
[2024-03-02] MEDS ORDERED: PREGABALIN 50 MG CAPSULE ONE (01:57)
[2024-03-02] MEDS ORDERED: PREGABALIN 100 MG CAPSULE ONE ×2 (01:58→22:10)
[2024-03-02] MEDS: busPIRone HCL 5 MG TABLET PO SCH (02:16)
[2024-03-02] MEDS: PREGABALIN 75 MG CAPSULE PO SCH (02:26)
[2024-03-02] MEDS: PREGABALIN 100 MG CAPSULE PO ONE (02:30)
[2024-03-02 07:19] LABS: BASO % 0.2 % (0-2.0); HEMATOCRIT 29.6 % (32.4-45.2); MCH 31.6 pg (25.7-33.7); MEAN PLT VOLUME 10.1 fl (7.5-11.1); MONO % 0.8 % (3.8-10.2); PLATELET COUNT 209 10^3/uL (134-434); RBC 3.18 M/mm3 (3.60-5.2); RDW 13.9 % (11.6-15.6); WHITE BLOOD COUNT 10.8 K/mm3 (4.0-10.0)
[2024-03-02 07:36] LABS: POTASSIUM 3.4 mmol/L (3.5-5.1)
[2024-03-02 07:40] LABS: BLOOD UREA NITROGEN 9.8 mg/dL (7-18); CALCIUM 8.5 mg/dL (8.5-10.1)
[2024-03-02 07:44] LABS: CREATININE 0.5 mg/dL (0.55-1.3)
[2024-03-02] MEDS ORDERED: TAMSULOSIN HCL 0.4 MG CAP ONE (09:04)
[2024-03-02] MEDS ORDERED: amLODIPine BESYLATE 10 MG TABLET (FP) ONE (09:05)
[2024-03-02] MEDS ORDERED: CEFTRIAXONE 1 GM/50 ML BAG ONE (09:06)
[2024-03-02] MEDS ORDERED: AZITHROMYCIN IVPB 500 MG/250 ML BAG IVPB ONE (09:07)
[2024-03-02] MEDS: TAMSULOSIN HCL 0.4 MG CAP PO SCH (09:22)
[2024-03-02] MEDS: amLODIPine BESYLATE 10 MG TABLET (FP) PO SCH (09:22)
[2024-03-02] MEDS: SENNOSIDES 8.6MG TABLET (FP) PO PRN (09:22)
[2024-03-02] MEDS: CEFTRIAXONE 1 GM in DEXTROSE 5%-WATER - 50 ML IVPB SCH (09:25)
[2024-03-02] MEDS: AZITHROMYCIN IVPB 500 MG/250 ML BAG IVPB SCH (10:17)
[2024-03-02] MEDS ORDERED: POTASSIUM CHLORIDE ORAL LIQUID 20 MEQ/15 ML ONE (13:59)
[2024-03-02] MEDS: POTASSIUM CHLORIDE ORAL LIQUID 20 MEQ/15 ML PO ONE (14:06)
[2024-03-02] MEDS ORDERED: methylPREDNISolone NA SUCC 40 MG/1 ML VIAL ONE (19:49)
[2024-03-02] MEDS: methylPREDNISolone NA SUCC 40 MG/1 ML VIAL IVPUSH SCH (20:16)
[2024-03-02] MEDS ORDERED: ATORVASTATIN CA 10 MG TABLET (FP) ONE (22:10)
[2024-03-02] MEDS: ATORVASTATIN CA 10 MG TABLET (FP) PO SCH (22:27)
[2024-03-02] MEDS: PREGABALIN 100 MG CAPSULE PO SCH (22:28)
[2024-03-02] MEDS ORDERED: busPIRone HCL 5 MG TABLET ONE (22:39)
[2024-03-03 01:07] VITALS: RESP 18; BMI 19.7
[2024-03-03 10:25] LABS: HEMATOCRIT 31.8 % (32.4-45.2); HEMOGLOBIN 10.8 GM/dL (10.7-15.3); MCH 31.1 pg (25.7-33.7); MEAN CELL VOLUME 91.5 fl (80-96); MEAN PLT VOLUME 11.1 fl (7.5-11.1); PLATELET COUNT 261 10^3/uL (134-434); RBC 3.48 M/mm3 (3.60-5.2); RDW 14.7 % (11.6-15.6); WHITE BLOOD COUNT 12.5 K/mm3 (4.0-10.0)
[2024-03-03 11:16] LABS: ANISOCYTOSIS 0; MACROCYTOSIS 0
[2024-03-03 11:25] LABS: POTASSIUM 3.7 mmol/L (3.5-5.1)
[2024-03-03 11:35] LABS: ALBUMIN 2.6 g/dl (3.4-5.0); CALCIUM 9.1 mg/dL (8.5-10.1)
[2024-03-03 11:36] LABS: BLOOD UREA NITROGEN 12.9 mg/dL (7-18)
[2024-03-03 11:38] LABS: CREATININE 0.7 mg/dL (0.55-1.3)
[2024-03-03 11:40] LABS: BILIRUBIN,TOTAL 0.3 mg/dL (0.2-1); TOT PROT 6.4 g/dl (6.4-8.2)
[2024-03-03] MEDS ORDERED: ALBUTEROL SO4 0.083% IH SOL 2.5 MG/3 ML VIAL.NEB. NEB PRN (11:55)
[2024-03-03] MEDS: ALBUTEROL SO4 2.5/IPRATROPIUM 0.5 INH SOL 3 ML VIAL.NEB. NEB SCH (15:26)
[2024-03-03] MEDS ORDERED: MELATONIN 5 MG TABLETS PO PRN (21:03)
[2024-03-05 09:17] LABS: BASO % 0.3 % (0-2.0); EOS % 0.1 % (0-4.5); HEMATOCRIT 31.9 % (32.4-45.2); HEMOGLOBIN 10.7 GM/dL (10.7-15.3); LYMPH % 10.5 % (8-40); MCH 30.8 pg (25.7-33.7); MCHC 33.5 g/dl (32.0-36.0); MEAN PLT VOLUME 9.8 fl (7.5-11.1); MONO % 2.8 % (3.8-10.2); NEUT % 86.3 % (42.8-82.8); PLATELET COUNT 294 10^3/uL (134-434); RBC 3.47 M/mm3 (3.60-5.2); RDW 15.1 % (11.6-15.6); WHITE BLOOD COUNT 9.4 K/mm3 (4.0-10.0)
[2024-03-05 09:44] LABS: POTASSIUM 3.4 mmol/L (3.5-5.1)
[2024-03-05 09:51] LABS: CALCIUM 9.1 mg/dL (8.5-10.1)
[2024-03-05 09:52] LABS: ALBUMIN 2.7 g/dl (3.4-5.0)
[2024-03-05 09:55] LABS: CREATININE 0.7 mg/dL (0.55-1.3)
[2024-03-05 09:56] LABS: BILIRUBIN,TOTAL 0.4 mg/dL (0.2-1); TOT PROT 6.2 g/dl (6.4-8.2)
[2024-03-05] MEDS: POTASSIUM CHLORIDE ORAL LIQUID 20 MEQ/15 ML PO ONE (12:13)
[2024-03-07 09:49] LABS: HEMATOCRIT 34.9 % (32.4-45.2); HEMOGLOBIN 11.5 GM/dL (10.7-15.3); MCH 30.3 pg (25.7-33.7); MCHC 32.8 g/dl (32.0-36.0); MEAN CELL VOLUME 92.5 fl (80-96); PLATELET COUNT 415 10^3/uL (134-434); RBC 3.78 M/mm3 (3.60-5.2); RDW 14.8 % (11.6-15.6); WHITE BLOOD COUNT 11.2 K/mm3 (4.0-10.0)
[2024-03-07 10:10] LABS: POTASSIUM 4.3 mmol/L (3.5-5.1)
[2024-03-07 10:13] LABS: CALCIUM 9.1 mg/dL (8.5-10.1)
[2024-03-07 10:14] LABS: ALBUMIN 2.8 g/dl (3.4-5.0); BLOOD UREA NITROGEN 21.5 mg/dL (7-18)
[2024-03-07 10:17] LABS: CREATININE 0.7 mg/dL (0.55-1.3)
[2024-03-07 10:18] LABS: BILIRUBIN,TOTAL 0.7 mg/dL (0.2-1)
[2024-03-07 10:19] LABS: TOT PROT 6.4 g/dl (6.4-8.2)
[2024-03-07 10:45] LABS: ANISOCYTOSIS 2+; MACROCYTOSIS 0
[2024-03-07 15:10] VITALS: BP 125/75; PULSE 97; TEMP 98.5
== END 2024-03-07 15:40 | disposition home or self-care (01) | DRG 190 ==
LOC: JER 15:39 → JERBED 22:00 → J6S 03-02 23:47
PROVIDERS: ADMIT Student in an Organized Health Care Education/Training Program; ATTEND Internal Medicine
DX: J44.0 Chronic obstructive pulmonary disease with (acute) lower respiratory infection (principal); J18.9 Pneumonia, unspecified organism; B02.29 Other postherpetic nervous system involvement; N39.0 Urinary tract infection, site not specified; J44.1 Chronic obstructive pulmonary disease with (acute) exacerbation; I10 Essential (primary) hypertension; F03.90 Unspecified dementia, unspecified severity, without behavioral disturbance, psychotic disturbance, mood disturbance, and anxiety; E78.5 Hyperlipidemia, unspecified; E87.6 Hypokalemia; G62.9 Polyneuropathy, unspecified; B96.20 Unspecified Escherichia coli [E. coli] as the cause of diseases classified elsewhere; N36.42 Intrinsic sphincter deficiency (ISD)
CPT/HCPCS: 0241U-QW; 36415; 71046-TC-FY; 80048; 80053; 81003; 83735; 83880; 84484; 85025; 85610; 85730; 86803; 87040; 87086; 87186; 87899; 93005; 93010; 94640; 97116-GP; 97162-GP; 99285-25; J0131

== ENCOUNTER 2024-05-03 11:00 | Observation (INO) | payer MEDICARE, OTHER ==
[2024-05-03] MEDS ORDERED: ACETAMINOPHEN INJECTION 100 ML ONE (12:33)
[2024-05-03] MEDS: ACETAMINOPHEN 1000 MG/100 ML BAG IVPB ONE (13:08)
[2024-05-03] MEDS: SODIUM CHLORIDE 1,000 ML IV SCH (13:26)
[2024-05-03 13:27] LABS: BASO % 0.5 % (0-2.0); EOS % 6.5 % (0-4.5); HEMATOCRIT 37.9 % (32.4-45.2); HEMOGLOBIN 12.4 GM/dL (10.7-15.3); LYMPH % 21.6 % (8-40); MCH 31.2 pg (25.7-33.7); MCHC 32.7 g/dl (32.0-36.0); MEAN CELL VOLUME 95.4 fl (80-96); MONO % 7.7 % (3.8-10.2); NEUT % 63.7 % (42.8-82.8); RBC 3.97 M/mm3 (3.60-5.2); RDW 15.3 % (11.6-15.6); WHITE BLOOD COUNT 8.4 K/mm3 (4.0-10.0)
[2024-05-03 13:33] LABS: INR 0.93 (0.83-1.09); PROTHROMBIN TIME (PATIENT) 10.7 SEC (9.7-13.0)
[2024-05-03 13:36] LABS: ACTIVATED PTT 25.8 SECONDS (25.2-36.5)
[2024-05-03 13:40] LABS: POTASSIUM 3.6 mmol/L (3.5-5.1)
[2024-05-03 13:41] LABS: CALCIUM 9.2 mg/dL (8.5-10.1)
[2024-05-03 13:42] LABS: ALBUMIN 3.3 g/dl (3.4-5.0)
[2024-05-03 13:43] LABS: BLOOD UREA NITROGEN 17.8 mg/dL (7-18)
[2024-05-03 13:45] LABS: CREATININE 0.7 mg/dL (0.55-1.3)
[2024-05-03 13:47] LABS: TOT PROT 6.6 g/dl (6.4-8.2)
[2024-05-03 13:48] LABS: BILIRUBIN,TOTAL 0.4 mg/dL (0.2-1)
[2024-05-03] MEDS ORDERED: MORPHINE SULFATE 2 MG/ML SYRINGE ONE (15:36)
[2024-05-03] MEDS: morphine CARPU-JECT 4 MG/1 ML DISP.SYRIN IVPUSH ONE (15:46)
[2024-05-03 18:51] LABS: URINE APPEARANCE CLEAR; URINE COLOR YELLOW
[2024-05-03 18:52] LABS: URINE BILIRUBIN NEGATIVE (NEGATIVE); URINE GLUCOSE (UA) NEGATIVE (NEGATIVE); URINE KETONE 15 mg/dl (NEGATIVE); URINE LEUK ESTERASE NEGATIVE (NEGATIVE); URINE NITRITE NEGATIVE (NEGATIVE); URINE PROTEIN TRACE (NEGATIVE); URINE UROBILINOGEN 0.2 mg/dL (0.2-1.0)
[2024-05-03] MEDS ORDERED: PREGABALIN 75 MG CAPSULE PO ONE (19:11)
[2024-05-03] MEDS ORDERED: morphine CARPU-JECT 2 MG/1 ML DISP.SYRIN IVPUSH PRN (19:28)
[2024-05-03] MEDS ORDERED: MORPHINE SULFATE 2 MG/ML SYRINGE IVPUSH PRN (19:37)
[2024-05-03] MEDS ORDERED: busPIRone HCL 5 MG TABLET ONE (19:53)
[2024-05-03] MEDS ORDERED: PREGABALIN 50 MG CAPSULE ONE (19:53)
[2024-05-03] MEDS ORDERED: PREGABALIN 100 MG CAPSULE ONE (19:54)
[2024-05-03] MEDS: busPIRone HCL 5 MG TABLET PO ONE (19:58)
[2024-05-03] MEDS: PREGABALIN 100 MG CAPSULE PO ONE (20:03)
[2024-05-04] MEDS: FAMOTIDINE 20 MG/50 ML IVPB 20 MG/50 ML MG IVPB ONE (00:05)
[2024-05-04] MEDS ORDERED: ALBUTEROL SO4 HFA INHALER IH PRN (04:05)
[2024-05-04] MEDS: ACETAMINOPHEN 500 MG TABLET (FP) PO PRN (04:16)
[2024-05-04] MEDS: PREGABALIN 50 MG CAPSULE PO ONE (07:31)
[2024-05-04 08:28] LABS: BASO % 0.7 % (0-2.0); EOS % 4.7 % (0-4.5); HEMATOCRIT 37.8 % (32.4-45.2); HEMOGLOBIN 12.3 GM/dL (10.7-15.3); LYMPH % 29.7 % (8-40); MCH 30.7 pg (25.7-33.7); MCHC 32.6 g/dl (32.0-36.0); MEAN CELL VOLUME 94.1 fl (80-96); MEAN PLT VOLUME 11.1 fl (7.5-11.1); MONO % 10.2 % (3.8-10.2); NEUT % 54.7 % (42.8-82.8); PLATELET COUNT 265 10^3/uL (134-434); RBC 4.02 M/mm3 (3.60-5.2); RDW 15.1 % (11.6-15.6); WHITE BLOOD COUNT 8.6 K/mm3 (4.0-10.0)
[2024-05-04 09:02] LABS: POTASSIUM 3.4 mmol/L (3.5-5.1)
[2024-05-04 09:13] LABS: BLOOD UREA NITROGEN 13.7 mg/dL (7-18); MAGNESIUM 2.2 mg/dL (1.8-2.4)
[2024-05-04 09:16] LABS: CREATININE 0.6 mg/dL (0.55-1.3)
[2024-05-04 09:17] LABS: PHOSPHOROUS 3.9 mg/dL (2.5-4.9)
[2024-05-04] MEDS: PANTOPRAZOLE SODIUM 40 MG VIAL IVPUSH SCH (09:26)
[2024-05-04] MEDS: amLODIPine BESYLATE 10 MG TABLET (FP) PO SCH (09:27)
[2024-05-04 15:51] VITALS: BMI 20.5
[2024-05-04] MEDS: PREGABALIN 75 MG CAPSULE PO SCH (21:08)
[2024-05-04] MEDS: ATORVASTATIN CA 40 MG TABLET (FP) PO SCH (21:08)
[2024-05-04] MEDS: busPIRone HCL 5 MG TABLET PO SCH (21:09)
[2024-05-04] MEDS ORDERED: PREGABALIN 100 MG CAPSULE PO SCH (22:00)
[2024-05-05] MEDS ORDERED: ACETAMINOPHEN 1000 MG/100 ML BAG IVPB PRN (00:14)
[2024-05-05 07:04] LABS: BASO % 0.7 % (0-2.0); EOS % 10.5 % (0-4.5); HEMATOCRIT 35.6 % (32.4-45.2); HEMOGLOBIN 11.8 GM/dL (10.7-15.3); LYMPH % 33.9 % (8-40); MCH 31.4 pg (25.7-33.7); MCHC 33.3 g/dl (32.0-36.0); MEAN CELL VOLUME 94.3 fl (80-96); MEAN PLT VOLUME 9.2 fl (7.5-11.1); MONO % 8.7 % (3.8-10.2); NEUT % 46.2 % (42.8-82.8); PLATELET COUNT 271 10^3/uL (134-434); RBC 3.77 M/mm3 (3.60-5.2); RDW 14.6 % (11.6-15.6); WHITE BLOOD COUNT 6.6 K/mm3 (4.0-10.0)
[2024-05-05 07:07] VITALS: RESP 18
[2024-05-05 07:25] LABS: CHLORIDE 110 mmol/L (98-107); POTASSIUM 3.5 mmol/L (3.5-5.1); SODIUM 142 mmol/L (136-145)
[2024-05-05 07:42] LABS: ANION GAP 5 mmol/L (4-13); BLOOD UREA NITROGEN 15.2 mg/dL (7-18); CALCIUM 9.3 mg/dL (8.5-10.1); CO2 28 mmol/L (21-32); GLUCOSE,RANDOM 91 mg/dL (74-106)
[2024-05-05 07:45] LABS: CREATININE 0.6 mg/dL (0.55-1.3); SGOT/AST 14 U/L (15-37)
[2024-05-05 07:47] LABS: BILIRUBIN,TOTAL 0.3 mg/dL (0.2-1); TOT PROT 5.9 g/dl (6.4-8.2)
[2024-05-05 07:48] LABS: ALK PHOS 87 U/L (45-117)
[2024-05-05 07:52] LABS: SGPT/ALT < 6 U/L (13-61)
[2024-05-05 10:15] VITALS: BP 131/100; PULSE 87; TEMP 98.8
[2024-05-05] MEDS: amLODIPine BESYLATE 10 MG TABLET (FP) PO SCH (10:17)
[2024-05-05] MEDS: POLYETHYLENE GLYCOL (HEALTHYLAX) 3350 17 GM PACKET PO PRN (13:12)
== END 2024-05-05 15:28 | disposition home or self-care (01) ==
LOC: JER 11:00 → JERBED 19:28 → J4W 21:50
PROVIDERS: ADMIT Student in an Organized Health Care Education/Training Program; ATTEND Internal Medicine
PROC: 3E033GC Introduction of Other Therapeutic Substance into Peripheral Vein, Percutaneous Approach (ICD-10-PCS; principal; 2024-05-03)
PROC: 3E033NZ Introduction of Analgesics, Hypnotics, Sedatives into Peripheral Vein, Percutaneous Approach (ICD-10-PCS; 2024-05-03)
DX: N30.90 Cystitis, unspecified without hematuria (principal); F03.A0 Unspecified dementia, mild, without behavioral disturbance, psychotic disturbance, mood disturbance, and anxiety; B02.29 Other postherpetic nervous system involvement; J44.9 Chronic obstructive pulmonary disease, unspecified; I10 Essential (primary) hypertension; E78.5 Hyperlipidemia, unspecified; R10.9 Unspecified abdominal pain
CPT/HCPCS: 36415; 70450-TC; 70551-TC; 71045-TC-FY; 74177-TC; 76705-TC; 80048; 80053; 80061; 81003; 82550; 82962; 83036; 83605; 83690; 83735; 84100; 84484; 85025; 85610; 85730; 93005; 93010; 96365; 96375; 96376; 99285-25; G0378; J0131; Q9967

== ENCOUNTER 2024-05-15 03:27 | Emergency (ER) | payer MEDICARE, OTHER ==
[2024-05-15 03:36] VITALS: BMI 21.4
[2024-05-15] MEDS ORDERED: ALBUTEROL SO4 2.5/IPRATROPIUM 0.5 INH SOL 3 ML VIAL.NEB. NEB ONE (04:22)
[2024-05-15] MEDS: ALBUTEROL SO4 2.5/IPRATROPIUM 0.5 INH SOL 3 ML VIAL.NEB. NEB ONE (04:27)
[2024-05-15 04:47] LABS: BASO % 0.7 % (0-2.0); EOS % 3.1 % (0-4.5); HEMATOCRIT 35.9 % (32.4-45.2); HEMOGLOBIN 11.9 GM/dL (10.7-15.3); LYMPH % 28.5 % (8-40); MCH 31.3 pg (25.7-33.7); MCHC 33.2 g/dl (32.0-36.0); MEAN CELL VOLUME 94.3 fl (80-96); MEAN PLT VOLUME 8.5 fl (7.5-11.1); MONO % 11.6 % (3.8-10.2); NEUT % 56.1 % (42.8-82.8); PLATELET COUNT 273 10^3/uL (134-434); RBC 3.81 M/mm3 (3.60-5.2); RDW 14.8 % (11.6-15.6); WHITE BLOOD COUNT 8.9 K/mm3 (4.0-10.0)
[2024-05-15 05:00] LABS: VENOUS O2 SATURATION 96.1 % (70-80); VENOUS PCO2 37.7 mmHg (38-52); VENOUS PH 7.439 (7.310-7.410)
[2024-05-15 05:35] LABS: POTASSIUM 3.6 mmol/L (3.5-5.1)
[2024-05-15 05:38] LABS: ALBUMIN 3.4 g/dl (3.4-5.0); BLOOD UREA NITROGEN 14.3 mg/dL (7-18); CALCIUM 9.1 mg/dL (8.5-10.1)
[2024-05-15 05:41] LABS: CREATININE 0.7 mg/dL (0.55-1.3)
[2024-05-15 05:43] LABS: BILIRUBIN,TOTAL 0.3 mg/dL (0.2-1); TOT PROT 6.5 g/dl (6.4-8.2)
[2024-05-15 06:45] VITALS: BP 128/70; PULSE 92; RESP 18; TEMP 98
== END 2024-05-15 09:20 | disposition home or self-care (01) ==
LOC: JER 03:27
PROC: 3E0F7GC Introduction of Other Therapeutic Substance into Respiratory Tract, Via Natural or Artificial Opening (ICD-10-PCS; principal; 2024-05-15)
DX: J45.909 Unspecified asthma, uncomplicated (principal); R06.02 Shortness of breath; R00.0 Tachycardia, unspecified; R09.89 Other specified symptoms and signs involving the circulatory and respiratory systems; Z20.822 Contact with and (suspected) exposure to COVID-19
CPT/HCPCS: 0241U-QW; 36415; 71045-TC-FY; 80053; 82803; 84484; 85025; 93005; 93010; 94640; 99285-25